=== PATIENT | female | born 1935 | race Caucasian/White ===

== ENCOUNTER → 2020-01-24 15:16 | Outpatient (BNVA) | payer MEDICARE, SELFPAY | PROVIDERS: PCP Internal Medicine; Referring Provider Internal Medicine; Visit Provider Internal Medicine Cardiovascular Disease | DX: I48.0 Paroxysmal atrial fibrillation (principal); I50.32 Chronic diastolic (congestive) heart failure; I71.2 Thoracic aortic aneurysm, without rupture; Z88.8 Allergy status to other drugs, medicaments and biological substances; Z79.899 Other long term (current) drug therapy | CPT/HCPCS: 99212 ==

== ENCOUNTER → 2020-05-06 14:49 | Outpatient (BNVA) | payer MEDICARE, SELFPAY | PROVIDERS: PCP Internal Medicine; Visit Provider Internal Medicine Gastroenterology | DX: Z76.89 Persons encountering health services in other specified circumstances (principal) | CPT/HCPCS: Q3014 ==

== ENCOUNTER → 2020-07-21 15:27 | Outpatient (BNVA) | payer MEDICARE, SELFPAY | PROVIDERS: PCP Internal Medicine; Visit Provider Internal Medicine Cardiovascular Disease | DX: I50.32 Chronic diastolic (congestive) heart failure (principal); I48.0 Paroxysmal atrial fibrillation; I10 Essential (primary) hypertension | CPT/HCPCS: 93005; 99212 ==

== ENCOUNTER 2020-07-24 05:38 | Emergency (ER) | payer MEDICARE, SELFPAY ==
--- NOTE | ~2020-07-24 | CT_ITS ---
EXAMINATION: NONCONTRAST HEAD CT NONCONTRAST CERVICAL SPINE CT INDICATION INFORMATION: Hit head. Fall. On Eliquis. COMPARISON: 11/06/2018 TECHNIQUE: Separate noncontrast CT examinations of the head and cervical spine were performed. Coronal and sagittal images were created for each examination at the technologist workstation. This CT examination was performed using dose optimization techniques as appropriate, variously including the following: *Automated exposure control *Adjustment of mA and/or kV according to patient size (this includes techniques or standardized protocols for targeted exams where dose is matched to indication/reason for exam; i.e. extremities or head) *Use of iterative reconstruction technique DLP: 992 mGy-cm FINDINGS: Head: There is no evidence of acute intracranial hemorrhage or territorial infarction. No abnormal mass effect or midline shift is seen. Prince to white matter differentiation is well preserved. No extra-axial fluid collections are identified. No hydrocephalus. Proportional prominence of the ventricles and sulcal spaces is consistent with mild volume loss. Patchy periventricular and deep white matter hypoattenuation is consistent with moderate small vessel ischemic changes. No acute osseous or soft tissue abnormality. Partial fusion of the right mastoid air cells. The left mastoid air cells and visualized portions of the paranasal sinuses are well aerated. Cervical spine: There is anatomic alignment of the vertebral bodies and posterior elements. The atlantoaxial and atlantooccipital articulations are intact. Vertebral body heights are maintained. There is multilevel intervertebral disc space narrowing with endplate osteophyte formation and facet arthropathy. No evidence of acute fracture. No prevertebral soft tissue swelling. Pleural calcification at the lung apices noted.. 2.1 cm hypoattenuating nodule in the right lobe of the thyroid gland. CT/CT cervical spine wo con IMPRESSION: 1. No acute intracranial finding. Chronic volume loss with small vessel ischemic change. 2. No acute fracture or malalignment of the cervical spine. Mild multilevel degenerative change. 3. 2.1 cm right thyroid lobe nodule. Consider nonemergent thyroid ultrasound follow-up.
[2020-07-24 05:45] VITALS: BP 181/79; PULSE 74; RESP 20; TEMP 36.4; O2SAT 95; BMI 25.6
[2020-07-24 05:59] VITALS: BP 148/71; PULSE 70
--- NOTE | 2020-07-24 06:05 | PC.NURSE ---
Lac to posterior head cleaned, minimal bleeding noted at this time. Pt and daughter aware of plan for CT.
--- NOTE | 2020-07-24 06:13 | PC.NURSE ---
Off to CT on hospital bed.
--- NOTE | 2020-07-24 06:18 | PC.NURSE ---
Pt sleeping throughout the night without difficulty. Pt wakes easily for AM meds, found to be incontinent of urine, provided with victoriano care and a complete bed change. VSS. Continue to monitor.
[2020-07-24 06:19] VITALS: BP 103/64; PULSE 91; RESP 16; O2SAT 95
--- NOTE | 2020-07-24 06:58 | ED_ITS ---
HPI - Fall General Chief Complaint: Fall Stated Complaint: FALL W/LAC Time Seen by Provider: 07/24/20 06:58 Source: patient Mode of arrival: ambulatory Limitations: no limitations History of Present Illness HPI Narrative: Patient is on eliquist, fell this morning hittting the back of her head, no LOC MD complaint: fall Onset (ago): hour(s) (2) Fall from: standing Fall witnessed: no Place fall occurred: home Loss of consciousness: none Prolonged down time: no Symptoms prior to fall: none Context: tripped/slipped Location of injury: head Severity: mild Related Data Home Medications Medication Instructions Recorded Confirmed apixaban 2.5 mg tablet 2.5 mg PO BID 01/24/20 07/30/20 atorvastatin 10 mg tablet 10 mg PO DAILY 01/24/20 07/30/20 ergocalciferol (vitamin D2) 1,250 1,250 mcg PO QWEEK 01/24/20 07/30/20 mcg (50,000 unit) capsule furosemide 20 mg tablet 20 mg PO DAILY 01/24/20 07/30/20 metoprolol succinate 50 mg 100 mg PO DAILY 01/24/20 07/30/20 tablet,extended release 24 hr sertraline 50 mg tablet 50 mg PO DAILY 01/24/20 07/30/20 zolpidem 10 mg tablet 10 mg PO BEDTIME 01/24/20 07/30/20 omeprazole 20 mg capsule,delayed 20 mg PO QAM 07/21/20 07/30/20 release potassium chloride 10 mEq 10 meq PO DAILY 07/21/20 07/30/20 capsule,extended release Previous Rx's Medication Instructions Recorded isosorbide mononitrate 30 mg 30 mg PO DAILY #90 tab 02/19/20 tablet,extended release 24 hr amlodipine 2.5 mg tablet 2.5 mg PO DAILY #30 tab 07/30/20 Allergies Allergy/AdvReac Type Severity Reaction Status Date / Time cefaclor [From CECLOR] Allergy Unknown UNKNOWN Verified 07/24/20 05:50 ciprofloxacin [CIPROFLOXACIN] Allergy Unknown UNKNOWN Verified 07/24/20 05:50 levofloxacin [From LEVAQUIN] Allergy Unknown UNKNOWN Verified 07/24/20 05:50 sulfamethoxazole Allergy Unknown UNKNOWN Verified 07/24/20 05:50 [From BACTRIM] trimethoprim [From BACTRIM] Allergy Unknown UNKNOWN Verified 07/24/20 05:50 Augmentin Allergy Unknown Unknown Uncoded 07/24/20 05:50 augmentin Allergy Unknown GI upset Uncoded 07/24/20 05:50 ceclor Allergy Unknown rash Uncoded 07/24/20 05:50 demerol Allergy Unknown GI upset Uncoded 07/24/20 05:50 levaquin Allergy Unknown rash Uncoded 07/24/20 05:50 From Augmentin AdvReac Unknown UPSET Uncoded 07/24/20 05:50 STOMACH From Demerol AdvReac Unknown UPSET Uncoded 07/24/20 05:50 STOMACH Review of Systems Constitutional: Constitutional: Reports no additional constitutional complaints Eyes: Eyes: Reports no additional eye complaints ENT: Denies dizziness Cardiovascular: Cardiovascular: Reports no additional cardiovascular complaints Respiratory: Respiratory: Reports as per HPI Gastrointestinal: Gastrointestinal: Reports no additional gastrointestinal complaints Genitourinary: Genitourinary: Reports no additional female genitourinary com plaints Musculoskeletal: Musculoskeletal: Reports no additional musculoskeletal complaints Integumentary/Breasts: Skin/Breast: Denies rash Neurologic: Reports system reviewed and no additional complaints, except as documented, Denies dizziness and Denies Sensory deficit (Neuro) Psychiatric: Psychiatric: Denies anxiety PMFSH Past Medical History Medical History Chronic diastolic heart failure Diarrhea History of cardioversion Hyperlipemia Hypertension PAF (paroxysmal atrial fibrillation) Tubular adenoma of colon Surgical History History of lumpectomy of right breast History of total left knee replacement Hx laparoscopic cholecystectomy Hx of colonoscopy with polypectomy Hx of thoracic aortic aneurysm repair Family History Family History Mother No problems noted. Father No problems noted. Social History Social History Household Members: Children Household Members Other:: daughter Alcohol intake: never Smoking Status: Former smoker Current occupational status: retired Physical Exam Vital Signs: Vital Signs: Last Vital Signs Temp 98.2 F 07/24/20 09:04 Pulse 74 07/24/20 10:07 Resp 18 07/24/20 10:07 BP 174/77 H 07/24/20 10:07 Pulse Ox 97 07/24/20 10:07 Body Mass Index 25.6 Const: Other: elderly female General: healthy appearing Nutritional Appearance: average body habitus Orientation/consciousness: oriented to person and patient oriented x3 Limitations: no limitations HENMT: Head: Yes normal to inspection Ears: external ears normal General nose exam: Normal external nose present Mouth: Normal oral and palatal mucosa present and oropharynx normal Throat: Yes posterior oropharynx normal Eyes: General: appearance normal, both eyes and all related structures Neck: Other: supple Neck: Yes normal visual inspection Chest: Chest palpation & inspection: normal inspection of the chest Resp: Auscultation: clear to auscultation bilaterally Cardio: Jugular venous distension: no JVD Rate: regular rate Rhythm: regular rhythm Heart sounds: S1 normal heart sound present and S2 normal heart sound present GI: Inspection: Yes normal to inspection Palpation (GI): Soft to palpation, nontender and No hepatosplenomegaly present Auscultation: normal bowel sounds : General: Yes no CVA tenderness Back/Spine/Pelvis: Back: no CVA tenderness Skin: Other: 6cm laceration to occiput area Neuro: General: oriented to person and patient oriented x3 Cranial nerves: Yes CN's II-XII intact bilaterally Motor exam (neuro): 5/5 motor strength present throughout Sensory Exam: No Sensory deficit (Neuro) Extrem: General: Yes normal to inspection Psych: Appearance: grossly normal Course Course Course Narrative: I have reviewed the chart Procedures Procedure Narrative Procedure Narrative: Patient cleaned and prepped. Ethyl chloride used for anesthesia, closed with 11 raheem MDM - Fall MDM Narrative Medical decision making narrative: head trauma with laceration Discharge Plan Discharge Clinical Impression: Laceration of head Patient Disposition: Home, Self-Care Instructions: Staple Care (ED) Additional Instructions: staple removal 10 days Prescriptions: No Action isosorbide mononitrate 30 mg tablet extended release 24 hr 30 mg PO DAILY Qty: 90 RF: 3 potassium chloride 10 mEq capsule, extended release 10 meq PO DAILY RF: 0 omeprazole 20 mg capsule,delayed release(DR/EC) 20 mg PO QAM RF: 0 atorvastatin 10 mg tablet 10 mg PO DAILY RF: 0 sertraline 50 mg tablet 50 mg PO DAILY RF: 0 zolpidem 10 mg tablet 10 mg PO BEDTIME RF: 0 ergocalciferol (vitamin D2) 1,250 mcg (50,000 unit) capsule 1,250 mcg PO QWEEK RF: 0 furosemide 20 mg tablet 20 mg PO DAILY RF: 0 Eliquis 2.5 mg tablet 2.5 mg PO BID RF: 0 metoprolol succinate 50 mg tablet extended release 24 hr 100 mg PO DAILY RF: 0 amlodipine 2.5 mg tablet 2.5 mg PO DAILY Qty: 30 RF: 3 Referrals: Dionicio Lentz MD [Primary Care Provider] - 10 days Interventions: ED Discharge Assessment Last Done: 07/24/20 10:31 Discharge Date/Time: 07/24/20 10:32
[2020-07-24 07:26] VITALS: BP 174/79; PULSE 71; RESP 16; O2SAT 94
[2020-07-24 09:04] VITALS: BP 168/75; PULSE 75; RESP 17; TEMP 36.8; O2SAT 95
[2020-07-24 10:07] VITALS: BP 174/77; PULSE 74; RESP 18; O2SAT 97
[2020-07-24] MEDS: Diphth,Pertus(ACell),Tet Adult 0.5 ML SYRINGE IM (10:22)
== END 2020-07-24 10:32 | disposition home or self-care (01) ==
PROVIDERS: Emergency Provider Emergency Medicine; PCP Internal Medicine
DX: S01.01XA Laceration without foreign body of scalp, initial encounter (principal); S09.90XA Unspecified injury of head, initial encounter; W01.10XA Fall on same level from slipping, tripping and stumbling with subsequent striking against unspecified object, initial encounter; I10 Essential (primary) hypertension; I48.0 Paroxysmal atrial fibrillation; Y93.9 Activity, unspecified; Y92.019 Unspecified place in single-family (private) house as the place of occurrence of the external cause; Y99.9 Unspecified external cause status; Z87.891 Personal history of nicotine dependence
CPT/HCPCS: 12001; 70450; 72125; 90471; 90715; 99284

== ENCOUNTER → 2020-07-30 13:51 | Outpatient (BNVA) | payer MEDICARE, SELFPAY | PROVIDERS: PCP Internal Medicine; Referring Provider Internal Medicine; Visit Provider Internal Medicine Cardiovascular Disease | DX: I50.32 Chronic diastolic (congestive) heart failure (principal); I10 Essential (primary) hypertension; I48.0 Paroxysmal atrial fibrillation | CPT/HCPCS: 99212 ==

== ENCOUNTER → 2020-08-18 15:07 | Outpatient (BNVA) | payer MEDICARE, SELFPAY | PROVIDERS: PCP Internal Medicine; Visit Provider Internal Medicine Cardiovascular Disease | DX: I11.0 Hypertensive heart disease with heart failure (principal); I50.32 Chronic diastolic (congestive) heart failure; I48.0 Paroxysmal atrial fibrillation | CPT/HCPCS: 99212 ==

== ENCOUNTER → 2020-10-15 10:58 | Outpatient (BNVA) | payer MEDICARE, SELFPAY | PROVIDERS: PCP Internal Medicine; Referring Provider Internal Medicine; Visit Provider Internal Medicine Cardiovascular Disease | DX: I10 Essential (primary) hypertension (principal); I50.32 Chronic diastolic (congestive) heart failure; I48.0 Paroxysmal atrial fibrillation; Z79.01 Long term (current) use of anticoagulants | CPT/HCPCS: 99212 ==

== ENCOUNTER → 2020-10-27 15:35 | Outpatient (BNVA) | payer MEDICARE, SELFPAY | PROVIDERS: PCP Internal Medicine; Referring Provider Internal Medicine; Visit Provider Internal Medicine Cardiovascular Disease ==

== ENCOUNTER 2020-10-28 09:36 | Outpatient (REF) | payer MEDICARE, SELFPAY ==
[2020-10-28 10:34] LABS: MANUAL DIFF FLAG NO
[2020-10-28 10:41] LABS: Basophils Absolute Auto 0.1 X10*3/uL (0.0-0.2); Basophils Percent Auto 1.1 % (0-2); Eosinophils Absolute Auto 0.1 X10*3/uL (0.0-0.4); Eosinophils Percent Auto 1.5 % (0-4); Hematocrit 40.6 % (37-47); Hemoglobin 13.3 g/dl (12.0-16.0); Imm Gran Abs Auto 0.03 X10*3/uL (0.00-0.03); Imm Gran Pct Auto 0.4 % (0.0-0.4); Lymphocytes Absolute Auto 2.1 X10*3/uL (1.2-4.9); Mean Corpuscular HGB Conc 32.8 g/dl (31.0-35.0); Mean Corpuscular Hemoglobin 31.4 pg (27.0-33.0); Mean Corpuscular Volume 95.8 fL (80-98); Mean Platelet Volume 9.8 fL (9.4-12.3); Monocytes Percent Auto 11.8 % (2-11); Neutrophils Percent Auto 60.2 % (45-73); Platelet Count 186 X10*3/uL (160-400); Red Blood Count 4.24 X10*6/uL (4.20-5.50); Red Cell Distribution Width 14.2 % (11.0-16.0); White Blood Count 8.3 X10*3/uL (4.8-10.8)
[2020-10-28 11:21] LABS: Anion Gap 16 (12-20); Blood Urea Nitrogen 32 mg/dL (9-16); Carbon Dioxide 23 mmol/L (22-29); Chloride 108 mmol/L (96-108); Cholesterol 244 mg/dL; Estimated Glomerular Filt Rate 30; Glucose Fasting 101 mg/dL (60-99); HDL Cholesterol 109 mg/dL; LDL Cholesterol Calculated 111 mg/dl; Potassium 3.7 mmol/L (3.3-5.1); Sodium 143 mmol/L (135-145); Triglycerides 123 mg/dL
[2020-10-29 12:25] LABS: Alanine Aminotransferase 14 U/L (0-31); Albumin Level 4.1 g/dL (3.5-5.0); Alkaline Phosphatase 96 U/L (39-117); Aspartate Amino Transferase 20 U/L (5-31); Bilirubin Direct 0.3 mg/dL (0.0-0.5); Bilirubin Total 0.9 mg/dL (0.0-1.0)
== END 2020-10-28 09:37 | disposition home or self-care (01) ==
LOC: HO.LAB 09:36
PROVIDERS: PCP Internal Medicine; Visit Provider Internal Medicine
DX: E78.00 Pure hypercholesterolemia, unspecified (principal); R53.83 Other fatigue
CPT/HCPCS: 36415; 80051; 80061; 80076; 82565; 82947; 84520; 85025

== ENCOUNTER → 2020-12-12 10:29 | Outpatient (REF) | payer MEDICARE, SELFPAY ==
--- NOTE | 2020-12-12 10:35 | CA_ITS ---
Transthoracic Echocardiogram Patient (Last, First, Middle): Jessica Ordonez R Gender: Female Date of : 1935 Age: 85 Procedure Date: 12/12/2020 Procedure Type: Transthoracic Echocardiogram Location: OP Height: 160.02 cm Weight: 64.86 kg BSA: 1.68 m2 Heart Rate: bpm BP: 115 / 76 mmHg Claim Investigator: MARIELA Referring MD: Dionicio Lentz MD Symptoms: PERSISTENT ATRIAL FIBRILLATION Conclusions: - Normal left ventricular size, thickness, and systolic function. - Diastolic function is indeterminate on the basis of available data. - Mildly increased right ventricular cavity size. There is mildly decreased right ventricular systolic function. - The left atrium is mildly dilated. The right atrium is moderately dilated. - There is moderate tricuspid valve regurgitation. Normal right atrial pressure. Mild pulmonary hypertension is present. Findings Left Ventricle Normal left ventricular size, thickness, and systolic function. The visually estimated ejection fraction is between 55-60%. There is no evidence of regional wall motion abnormalities. Diastolic function is indeterminate on the basis of available data. Right Ventricle Mildly increased right ventricular cavity size. There is mildly decreased right ventricular systolic function. Atria The left atrium is mildly dilated. The right atrium is moderately dilated. Aortic Valve There is a normal trileaflet aortic valve. There is mild thickening of the aortic valve. There is no aortic valve stenosis. There is no aortic valve regurgitation. Mitral Valve The mitral valve appears normal. There is mild mitral valve regurgitation. There is no mitral valve stenosis. Pulmonic Valve Normal pulmonic valve structure and function. There is no pulmonic valve regurgitation. Tricuspid Valve Normal tricuspid valve structure. There is moderate tricuspid valve regurgitation. Normal right atrial pressure. Mild pulmonary hypertension is present. Great Vessels All visible segments of the aorta are normal in size. The visualized portions of the pulmonary artery and branches are normal. Venous The inferior vena cava is normal in size and collapses greater than 50% with inspiration. Pericardium/Pleural There is no evidence of pericardial effusion. Prior Study Comparison Changes noted compared to prior study dated: 09/21/2019. RV is mildly dilated and has mildly reduced function. Moderate TR. Pulmonary pressure are lower than before. Measurements 2D Linear Measurements IVSd: 0.77 0.6-0.9/0.6-1.0 cm LVIDd: 4.40 3.9-5.3/4.2-5.9 cm LVIDd Index: 2.62 2.4-3.2/2.2-3.1 cm/m2 LVIDs: 2.70 2.0-3.6 cm LVPWd: 0.77 0.7-1.1 cm Ao Root: 2.80 2.1-3.5 cm LA Diam: 3.30 2.7-3.8/3.0-4.0 cm LAIDs Index: 1.96 1.5-2.3 cm/m2 LV Mass: 130.26 67-162/88-224 g LV Mass Index: 77.53 43-95/49-115 g/m2 LVOT Diam: 2.10 3.0+(-)1.3 cm 2D Systolic Function EF 4C: 61.00 >55% EF 2C: 58.80 >55% EF BiP: 61.50 >55% Mitral Valve MV Pk E: 0.89 MV Decel Time: 101.00 E'Medial: 7.24 E/E' Med: 12.30 PHT: 30.00 MVA PHT: 7.33 Decel [place]: 9.45 Aortic Valve AoV Pk Jorge: 1.42 AoV Mn Jorge: 1.02 AoV VTI: 0.27 AoV Pk Grad: 8.00 Aov Mn Grad: 5.00 LUANN Cont.VTI: 1.45 LVOT LVOT Pk Jorge: 0.64 LVOT Mn Jorge: 0.40 LVOT VTI: 0.11 LVOT Pk Grad: 2.00 LVOT Mn Grad: 1.00 LVOT Diam: 2.10 LVOT Area: 3.46 Diastolic Function MV Pk E: 0.89 E'Medial: 7.24 E/E' Med: 12.30 Right Ventricle TAPSE (mm): 1.79 Tricuspid Valve TR Pk Jorge: 3.00 TR Pk Grad: 36.00 RA Press: 3.00 RVSP: 40.00 Great Vessels Aorta Ao Root-2D: 2.80 2.0-3.7 cm Ao Asc: 3.40 2.1-3.4 cm Updated in Other Vendor System with Status of Final Daniel Beauchamp MD electronically signed on 12/14/2020 1:47:29 PM with status of Final
--- NOTE | 2020-12-12 10:35 | HM_ITS ---
Total monitoring time 3days and 4 hours. Underlying rhythm atrial fibrillation. Average ventricular rate 88/min; maximum heart rate 128/min; minimum rate 60/min. About 9% of the time, rate >100/min; no significant bradycardia. Rare PVCs. 0.98% burden. Mostly isolated beats, some couplets. No patient events. Overall, reasonable rate control. Slight tendency for tachycardia. MTDD
== END ==
LOC: HO.CARD 10:29
PROVIDERS: Visit Provider Internal Medicine
DX: I48.0 Paroxysmal atrial fibrillation (principal); I48.19 Other persistent atrial fibrillation
CPT/HCPCS: 93242; 93306

== ENCOUNTER → 2021-01-08 15:44 | Outpatient (BNVA) | payer MEDICARE, SELFPAY | PROVIDERS: PCP Internal Medicine; Visit Provider Internal Medicine Cardiovascular Disease | DX: I11.0 Hypertensive heart disease with heart failure (principal); I50.32 Chronic diastolic (congestive) heart failure; I48.0 Paroxysmal atrial fibrillation | CPT/HCPCS: 99212 ==

== ENCOUNTER → 2021-03-11 15:36 | Outpatient (BNVA) | payer MEDICARE, SELFPAY | PROVIDERS: PCP Internal Medicine; Referring Provider Internal Medicine; Visit Provider Internal Medicine Cardiovascular Disease | DX: I11.0 Hypertensive heart disease with heart failure (principal); I50.32 Chronic diastolic (congestive) heart failure; I48.0 Paroxysmal atrial fibrillation | CPT/HCPCS: 99212 ==

== ENCOUNTER → 2021-05-04 14:43 | Outpatient (REF) | payer MEDICARE, SELFPAY ==
--- NOTE | 2021-05-04 14:46 | CA_ITS ---
Transthoracic Echocardiogram Patient (Last, First, Middle): Jessica Ordonez R Gender: Female Date of : 1935 Age: 85 Procedure Date: 05/04/2021 Procedure Type: Transthoracic Echocardiogram Location: OP Height: 154.94 cm Weight: 63.5 kg BSA: 1.62 m2 Heart Rate: bpm BP: 120 / 70 mmHg Utilization Management Um Nurse: JAYSHREE Terrazas MD: Daniel Beauchamp MD Symptoms: I50.32 - Chronic diastolic (congestive) heart failure Study Quality: Good Conclusions: - Normal left ventricular size and systolic function. - Mildly increased right ventricular cavity size. There is mildly decreased right ventricular systolic function. - There is mild to moderate tricuspid valve regurgitation. Mildly elevated right atrial pressure. Moderate to severe pulmonary hypertension is present. Findings Left Ventricle Normal left ventricular size and systolic function. There is mildly increased left ventricular wall thickness. The visually estimated ejection fraction is between 55-60%. There is no evidence of regional wall motion abnormalities. Diastolic function is indeterminate on the basis of available data. Right Ventricle Mildly increased right ventricular cavity size. There is mildly decreased right ventricular systolic function. Atria The left atrium is mildly dilated. The right atrium is moderately dilated. Aortic Valve There is mild calcification of the aortic valve. There is no aortic valve stenosis. There is trace (trivial) aortic valve regurgitation. Mitral Valve The mitral valve appears normal. There is mild mitral valve regurgitation. There is no mitral valve stenosis. Pulmonic Valve Normal pulmonic valve structure and function. There is trace pulmonic valve regurgitation. Tricuspid Valve Normal tricuspid valve structure and function. There is mild to moderate tricuspid valve regurgitation. Mildly elevated right atrial pressure. Moderate to severe pulmonary hypertension is present. Great Vessels All visible segments of the aorta are normal in size. Venous The inferior vena cava is dilated and collapses greater than 50% with inspiration. Pericardium/Pleural There is no evidence of pericardial effusion. Prior Study Comparison Changes noted compared to prior study dated: 12/12/2020. Pulmonary pressures are higher. Measurements 2D Linear Measurements IVSd: 1.11 0.6-0.9/0.6-1.0 cm LVIDd: 4.24 3.9-5.3/4.2-5.9 cm LVIDd Index: 2.62 2.4-3.2/2.2-3.1 cm/m2 LVIDs: 2.82 2.0-3.6 cm LVPWd: 0.96 0.7-1.1 cm Ao Root: 3.00 2.1-3.5 cm LA Diam: 4.20 2.7-3.8/3.0-4.0 cm LAIDs Index: 2.59 1.5-2.3 cm/m2 LV Mass: 182.51 67-162/88-224 g LV Mass Index: 112.66 43-95/49-115 g/m2 LVOT Diam: 2.20 3.0+(-)1.3 cm 2D Systolic Function EF 4C: 59.10 >55% EF 2C: 55.50 >55% EF BiP: 56.80 >55% Aortic Valve AoV Pk Jorge: 1.87 AoV Mn Jorge: 1.31 AoV VTI: 0.38 AoV Pk Grad: 14.00 Aov Mn Grad: 8.00 LUANN Cont.VTI: 1.74 LVOT LVOT Pk Jorge: 0.76 LVOT Mn Jorge: 0.51 LVOT VTI: 0.17 LVOT Pk Grad: 2.00 LVOT Mn Grad: 1.00 LVOT Diam: 2.20 LVOT Area: 3.80 Right Ventricle TAPSE (mm): 17.00 TVS' Jorge: 11.00 Tricuspid Valve TR Pk Jorge: 3.49 TR Pk Grad: 49.00 RA Press: 8.00 RVSP: 57.00 Great Vessels Aorta Ao Root-2D: 3.00 2.0-3.7 cm Ao Asc: 3.60 2.1-3.4 cm Updated in Other Vendor System with Status of Final Daniel Beauchamp MD electronically signed on 05/06/2021 2:10:11 PM with status of Final
== END ==
LOC: HO.CARD 14:43
PROVIDERS: PCP Internal Medicine; Visit Provider Internal Medicine Cardiovascular Disease
DX: I50.32 Chronic diastolic (congestive) heart failure (principal)
CPT/HCPCS: 93306

== ENCOUNTER → 2021-06-15 15:04 | Outpatient (BNVA) | payer MEDICARE, SELFPAY | PROVIDERS: PCP Internal Medicine; Referring Provider Internal Medicine; Visit Provider Internal Medicine Cardiovascular Disease | DX: I48.0 Paroxysmal atrial fibrillation (principal); I50.32 Chronic diastolic (congestive) heart failure; I71.9 Aortic aneurysm of unspecified site, without rupture; I10 Essential (primary) hypertension; E78.5 Hyperlipidemia, unspecified; Z87.891 Personal history of nicotine dependence; Z98.890 Other specified postprocedural states; Z88.1 Allergy status to other antibiotic agents; Z88.0 Allergy status to penicillin; Z88.2 Allergy status to sulfonamides; Z79.899 Other long term (current) drug therapy | CPT/HCPCS: 93005; 99212 ==

== ENCOUNTER 2021-06-16 11:40 | Outpatient (REF) | payer MEDICARE, SELFPAY ==
[2021-06-16 12:40] LABS: Hematocrit 43.8 % (37.0-47.0); Hemoglobin 14.3 g/dl (12.0-16.0); Mean Corpuscular HGB Conc 32.6 g/dl (31.0-35.0); Mean Corpuscular Hemoglobin 31.1 pg (27.0-33.0); Mean Corpuscular Volume 95.2 fL (80.0-98.0); Platelet Count 207 X10*3/uL (160-400); Red Cell Distribution Width 12.6 % (11.0-16.0); White Blood Count 6.9 X10*3/uL (4.8-10.8)
[2021-06-16 13:15] LABS: Anion Gap 14 (12-20); Blood Urea Nitrogen 21 mg/dL (9-16); Calcium 9.5 mg/dL (8.4-10.2); Carbon Dioxide 28 mmol/L (22-29); Chloride 102 mmol/L (96-108); Estimated Glomerular Filt Rate 34; Glucose Random 91 mg/dL (60-115); Sodium 140 mmol/L (135-145)
[2021-06-16 14:17] LABS: Digoxin 0.6 ng/mL (0.8-2.0)
== END 2021-06-16 11:41 | disposition home or self-care (01) ==
LOC: HO.LAB 11:40
PROVIDERS: PCP Internal Medicine; Visit Provider Internal Medicine Cardiovascular Disease
DX: I48.0 Paroxysmal atrial fibrillation (principal); Z79.899 Other long term (current) drug therapy
CPT/HCPCS: 36415; 80048; 80162; 85027

== ENCOUNTER 2021-07-30 14:06 | Outpatient (REF) | payer MEDICARE, SELFPAY ==
--- NOTE | ~2021-07-30 | XR_ITS ---
EXAMINATION: XR FOOT, RIGHT CLINICAL INFORMATION: Trauma. Exposed bone. Question osteomyelitis. COMPARISON: None TECHNIQUE: AP, lateral, and oblique views of the right foot. FINDINGS: No fracture or dislocation. Alignment is maintained. No osseous erosion. The bones are osteopenic. Prominent heel spurs. The soft tissues appear unremarkable. XR/XR foot RT 2V IMPRESSION: Osteopenia. No fracture or malalignment. No osseous erosion.
== END 2021-07-30 14:07 | disposition home or self-care (01) ==
LOC: HO.HMGCX 14:06
PROVIDERS: PCP Internal Medicine; Visit Provider Internal Medicine
DX: M85.871 Other specified disorders of bone density and structure, right ankle and foot (principal)
CPT/HCPCS: 73620

== ENCOUNTER → 2021-10-08 10:14 | Outpatient (BNVA) | payer MEDICARE, SELFPAY | PROVIDERS: PCP Internal Medicine; Referring Provider Internal Medicine; Visit Provider Internal Medicine Cardiovascular Disease | DX: I48.0 Paroxysmal atrial fibrillation (principal); I11.0 Hypertensive heart disease with heart failure; I50.32 Chronic diastolic (congestive) heart failure | CPT/HCPCS: 99212 ==

== ENCOUNTER 2022-02-11 11:27 | Outpatient (REF) | payer MEDICARE, SELFPAY ==
[2022-02-11 13:53] LABS: Digoxin 0.6 ng/mL (0.8-2.0)
== END 2022-02-11 11:28 | disposition home or self-care (01) ==
LOC: HO.LAB 11:27
PROVIDERS: PCP Internal Medicine; Visit Provider Internal Medicine Cardiovascular Disease
DX: I48.20 Chronic atrial fibrillation, unspecified (principal); I11.0 Hypertensive heart disease with heart failure; I50.32 Chronic diastolic (congestive) heart failure; Z79.899 Other long term (current) drug therapy
CPT/HCPCS: 36415; 80162; 99212

== ENCOUNTER 2022-05-07 11:35 | Outpatient (REF) | payer MEDICARE, SELFPAY ==
[2022-05-07 13:16] LABS: Digoxin 0.7 ng/mL (0.8-2.0)
== END 2022-05-07 11:36 | disposition home or self-care (01) ==
LOC: HO.LAB 11:35
PROVIDERS: PCP Internal Medicine; Visit Provider Internal Medicine Cardiovascular Disease
DX: R19.7 Diarrhea, unspecified (principal); R63.0 Anorexia
CPT/HCPCS: 36415; 80162

== ENCOUNTER → 2022-07-08 15:24 | Outpatient (BNVA) | payer MEDICARE, SELFPAY | PROVIDERS: PCP Internal Medicine; Referring Provider Internal Medicine; Visit Provider Nurse Practitioner Family | DX: I48.20 Chronic atrial fibrillation, unspecified (principal); I50.32 Chronic diastolic (congestive) heart failure; I11.0 Hypertensive heart disease with heart failure; Z98.890 Other specified postprocedural states | CPT/HCPCS: 93005; 99212 ==

== ENCOUNTER 2022-07-22 14:20 | Outpatient (REF) | payer MEDICARE, SELFPAY ==
[2022-07-22 14:38] LABS: MANUAL DIFF FLAG NO
[2022-07-22 15:24] LABS: Basophils Absolute Auto 0.1 X10*3/uL (0.0-0.2); Basophils Percent Auto 0.9 % (0-2); Eosinophils Absolute Auto 0.1 X10*3/uL (0.0-0.4); Eosinophils Percent Auto 1.1 % (0-4); Hematocrit 45.2 % (37.0-47.0); Hemoglobin 14.9 g/dl (12.0-16.0); Imm Gran Abs Auto 0.03 X10*3/uL (0.00-0.03); Imm Gran Pct Auto 0.3 % (0.0-0.4); Lymphocytes Percent Auto 19.1 % (20-40); Mean Corpuscular Hemoglobin 30.7 pg (27.0-33.0); Mean Platelet Volume 10.5 fL (9.4-12.3); Monocytes Absolute Auto 0.8 X10*3/uL (0.1-1.2); Monocytes Percent Auto 7.5 % (2-11); Neutrophils Absolute Auto 7.6 x10*3/uL (2.0-8.3); Neutrophils Percent Auto 71.1 % (45-73); Platelet Count 213 X10*3/uL (160-400); Red Blood Count 4.86 X10*6/uL (4.20-5.50); Red Cell Distribution Width 12.4 % (11.0-16.0); White Blood Count 10.7 X10*3/uL (4.8-10.8)
[2022-07-22 15:53] LABS: Alanine Aminotransferase 10 U/L (0-31); Albumin Level 4.3 g/dL (3.5-5.0); Alkaline Phosphatase 121 U/L (39-117); Anion Gap 15 (12-20); Aspartate Amino Transferase 21 U/L (5-31); Bilirubin Total 1.2 mg/dL (0.0-1.0); Blood Urea Nitrogen 30 mg/dL (9-16); Calcium 9.2 mg/dL (8.4-10.2); Carbon Dioxide 26 mmol/L (22-29); Chloride 104 mmol/L (96-108); Cholesterol 222 mg/dL; Estimated Glomerular Filt Rate 29; Glucose Random 118 mg/dL (60-115); HDL Cholesterol 99 mg/dL; LDL Cholesterol Calculated 102 mg/dl; Potassium 3.7 mmol/L (3.3-5.1); Sodium 141 mmol/L (135-145); Total Protein 7.2 g/dL (6.5-8.0); Triglycerides 107 mg/dL
== END 2022-07-22 14:21 | disposition home or self-care (01) ==
LOC: HO.LAB 14:20
PROVIDERS: PCP Internal Medicine; Visit Provider Nurse Practitioner Family
DX: I48.20 Chronic atrial fibrillation, unspecified (principal); I50.32 Chronic diastolic (congestive) heart failure
CPT/HCPCS: 36415; 80053; 80061; 85025

== ENCOUNTER 2023-01-17 14:26 | Outpatient (AMB) | payer MEDICARE, SELFPAY ==
--- NOTE | 2023-01-17 14:29 | A.OFFVIS_ITS ---
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 Accompanied by: Daughter Allergies cefaclor [From CECLOR] Allergy (Unknown, Verified 01/17/23 14:32) UNKNOWN ciprofloxacin [CIPROFLOXACIN] Allergy (Unknown, Verified 01/17/23 14:32) UNKNOWN levofloxacin [From LEVAQUIN] Allergy (Unknown, Verified 01/17/23 14:32) UNKNOWN sulfamethoxazole [From BACTRIM] Allergy (Unknown, Verified 01/17/23 14:32) UNKNOWN trimethoprim [From BACTRIM] Allergy (Unknown, Verified 01/17/23 14:32) UNKNOWN Augmentin Allergy (Unknown, Uncoded 01/17/23 14:32) Unknown Medication List - Last Reconciled 01/17/23 by Daniel Beauchamp MD amlodipine 5 mg PO DAILY apixaban (Eliquis) 2.5 mg PO BID atorvastatin 10 mg PO DAILY digoxin 125 mcg PO 3XW ergocalciferol (vitamin D2) 1,250 mcg PO QWEEK furosemide ,, Tuesday 80mg daily, 40mg other days isosorbide mononitrate ER 60 mg PO DAILY 90 days metoprolol succinate ER 100 mg PO DAILY potassium chloride ER 10 mEq PO DAILY sertraline 50 mg PO DAILY zolpidem 10 mg PO BEDTIME HPI HPI Comments History of Present Illness Details Pleasant 87-year-old female here for follow-up. She has background diastolic heart failure and aortic aneurysm for which she underwent surgery in [place]. She also has atrial fibrillation and mild right ventricular dysfunction. On follow-up she is doing well. Denying any chest discomfort or shortness of breath. She is not eating much and has appetite. She was started sertraline by primary care physician and that improved her appetite somewhat but still does not feel like eating. Denying any cardiovascular symptoms otherwise. Taking medications regularly and clinically stable. 01/17/23: She returns for follow-up. C ontinues to have somewhat poor appetite but it appears she eats certain things better than other and eats what she likes to eat at this point. Weight has been stable compared to June 2022. No significant dyspnea or palpitations. No chest discomfort. Physically she has not been very active but is doing what she likes to do. [facility] Medical History Chronic diastolic heart failure Diarrhea History of cardioversion Hyperlipemia Hypertension PAF (paroxysmal atrial fibrillation) Toe amputee Tubular adenoma of colon Surgical History Hx of thoracic aortic aneurysm repair History of lumpectomy of right breast Hx of colonoscopy with polypectomy Hx laparoscopic cholecystectomy History of total left knee replacement Family History Mother No problems noted. Father No problems noted. Social History (Updated 01/17/23 @ 14:33 by Halle Burris) Household Members: Children Household Members Other:: daughter Alcohol intake: current Alcohol intake frequency: holidays/special occasions only Alcohol type: wine Patient Tobacco Use Status: Former Tobacco user Quit Date: 1999 Smoked: 30+ Current occupational status: retired Physical Exam Vital Signs: Last Vital Signs Pulse 73 01/17/23 14:31 BP 130/66 01/17/23 14:31 BMI result Body Mass Index 23.2 GENERAL APPEARANCE: in no acute distress. NECK/THYROID: no carotid bruit, no JVD. HEART: no murmurs, irregular rate and rhythm, S1, S2 normal. LUNGS: clear to auscultation bilaterally. ABDOMEN: normal, bowel sounds present, soft, nontender, nondistended. EXTREMITIES: No peripheral edema PERIPHERAL PULSES: equal. NEUROLOGIC: nonfocal, alert and oriented. PSYCH: mood/affect full range. Assessment & Plan Assessment & Plan (1) Chronic atrial fibrillation: Code(s): I48.20 - Chronic atrial fibrillation, unspecified (2) Essential hypertension: Code(s): I10 - Essential (primary) hypertension Plan [age] year female with diastolic heart failure, permanent atrial fibrillation and hypertension. Clinically stable. Not in heart failure. Blood pressure control is good. Heart rate well controlled in atrial fibrillation on digoxin 125 mcg 3 times a week and Toprol-XL. Continue same medications and see us back in 6 months. Thank you for allowing me to participate in the care of your patient. Please feel free to contact me if you have any questions. Coding Level of Care Code Est Pt Level 3 (06948) Diagnoses Chronic atrial fibrillation I48.20 Essential hypertension I10
[2023-01-17 14:31] VITALS: BP 130/66; PULSE 73; BMI 23.2
== END 2023-01-17 15:03 | disposition home or self-care (01) ==
PROVIDERS: PCP Internal Medicine; Visit Provider Internal Medicine Cardiovascular Disease
DX: I48.20 Chronic atrial fibrillation, unspecified (principal); I10 Essential (primary) hypertension
CPT/HCPCS: 99213

== ENCOUNTER → 2023-01-17 14:26 | Outpatient (BNVA) | payer MEDICARE, SELFPAY | PROVIDERS: PCP Internal Medicine; Visit Provider Internal Medicine Cardiovascular Disease | DX: I48.20 Chronic atrial fibrillation, unspecified (principal); I10 Essential (primary) hypertension | CPT/HCPCS: 99212 ==

== ENCOUNTER 2023-04-29 09:47 | Outpatient (REF) | payer MEDICARE, SELFPAY ==
[2023-04-29 10:20] LABS: MANUAL DIFF FLAG NO
[2023-04-29 10:46] LABS: Basophils Absolute Auto 0.1 X10*3/uL (0.0-0.2); Eosinophils Absolute Auto 0.2 X10*3/uL (0.0-0.4); Eosinophils Percent Auto 3.2 % (0-4); Hematocrit 41.9 % (37.0-47.0); Hemoglobin 13.9 g/dl (12.0-16.0); Imm Gran Abs Auto 0.02 X10*3/uL (0.00-0.03); Imm Gran Pct Auto 0.3 % (0.0-0.4); Lymphocytes Absolute Auto 1.9 X10*3/uL (1.2-4.9); Lymphocytes Percent Auto 30.4 % (20-40); Mean Corpuscular HGB Conc 33.2 g/dl (31.0-35.0); Mean Corpuscular Hemoglobin 31.7 pg (27.0-33.0); Mean Corpuscular Volume 95.7 fL (80.0-98.0); Mean Platelet Volume 10.1 fL (9.4-12.3); Monocytes Absolute Auto 0.7 X10*3/uL (0.1-1.2); Monocytes Percent Auto 11.4 % (2-11); Neutrophils Absolute Auto 3.3 x10*3/uL (2.0-8.3); Neutrophils Percent Auto 53.7 % (45-73); Platelet Count 214 X10*3/uL (160-400); Red Blood Count 4.38 X10*6/uL (4.20-5.50); Red Cell Distribution Width 12.7 % (11.0-16.0); White Blood Count 6.2 X10*3/uL (4.8-10.8)
[2023-04-29 11:27] LABS: Alanine Aminotransferase 16 U/L (0-31); Albumin Level 3.7 g/dL (3.5-5.0); Alkaline Phosphatase 126 U/L (39-117); Anion Gap 13 (12-20); Aspartate Amino Transferase 28 U/L (5-31); Bilirubin Direct 0.3 mg/dL (0.0-0.5); Bilirubin Total 0.5 mg/dL (0.0-1.0); Blood Urea Nitrogen 40 mg/dL (9-16); Carbon Dioxide 27 mmol/L (22-29); Chloride 105 mmol/L (96-108); Cholesterol 196 mg/dL (<200); Estimated Glomerular Filt Rate 34; Glucose Fasting 100 mg/dL (60-99); HDL Cholesterol 89 mg/dL (>40); LDL Cholesterol Calculated 89 mg/dL (<100); Potassium 3.6 mmol/L (3.3-5.1); Sodium 141 mmol/L (135-145); Total Protein 7.2 g/dL (6.5-8.0); Triglycerides 90 mg/dL (<150)
[2023-04-29 11:44] LABS: Free T4 (Free Thyroxine) 0.88 ng/dL (0.71-1.85); Thyroid Stimulating Hormone 2.99 uIU/mL (0.32-4.0)
== END 2023-04-29 09:48 | disposition home or self-care (01) ==
LOC: HO.LAB 09:47
PROVIDERS: PCP Internal Medicine; Visit Provider Internal Medicine
DX: Z00.00 Encounter for general adult medical examination without abnormal findings (principal); R53.83 Other fatigue; E78.5 Hyperlipidemia, unspecified
CPT/HCPCS: 36415; 80051; 80061; 80076; 82565; 82947; 84439; 84443; 84520; 85025

== ENCOUNTER 2023-07-25 14:27 | Outpatient (AMB) | payer MEDICARE, SELFPAY ==
[2023-07-25 14:30] VITALS: BP 130/62; PULSE 72; BMI 23.9
--- NOTE | 2023-07-25 14:30 | A.OFFVIS_ITS ---
Vital Signs 07/25/23 14:30 Height 5 ft 3 in Weight 134 lb 14.766 oz BMI 23.9 BP 130/62 Blood Pressure Location Lt brachial Position Sitting Pulse 72 Intake Visit Reasons: 6M follow up Director [employer] Required: No Accompanied by: Daughter Allergies cefaclor [From CECLOR] Allergy (Unknown, Verified 01/17/23 14:32) UNKNOWN ciprofloxacin [CIPROFLOXACIN] Allergy (Unknown, Verified 01/17/23 14:32) UNKNOWN levofloxacin [From LEVAQUIN] Allergy (Unknown, Verified 01/17/23 14:32) UNKNOWN sulfamethoxazole [From BACTRIM] Allergy (Unknown, Verified 01/17/23 14:32) UNKNOWN trimethoprim [From BACTRIM] Allergy (Unknown, Verified 01/17/23 14:32) UNKNOWN Augmentin Allergy (Unknown, Uncoded 01/17/23 14:32) Unknown Medication List - Last Reconciled 07/25/23 by Daniel Beauchamp MD amlodipine 5 mg PO DAILY apixaban (Eliquis) 2.5 mg PO BID atorvastatin 10 mg PO DAILY digoxin 125 mcg PO 3XW 90 days ergocalciferol (vitamin D2) 1,250 mcg PO QWEEK furosemide ,, Tuesday 80mg daily, 40mg other days isosorbide mononitrate ER 60 mg PO DAILY metoprolol succinate ER 100 mg PO DAILY potassium chloride ER 10 mEq PO DAILY sertraline 50 mg PO DAILY zolpidem 10 mg PO BEDTIME HPI Comments Details: Pleasant 88-year-old female here for follow-up. She has background diastolic heart failure and aortic aneurysm for which she underwent surgery in [place]. She also has atrial fibrillation and mild right ventricular dysfunction. On follow-up she is doing well. Denying any chest discomfort or shortness of breath. She is not eating much and has appetite. She was started sertraline by primary care physician and that improved her appetite somewhat but still does not feel like eating. Denying any cardiovascular symptoms otherwise. Taking medications regularly and clinically stable. 01/17/23: She returns for follow-up. Continues to have somewhat poor appetite but it appears she eats certain things better than other and eats what she likes to eat at this point. Weight has been stable compared to June 2022. No significant dyspnea or palpitations. No chest discomfort. Physically she has not been very active but is doing what she likes to do. 07/25/23: She returns for follow-up. She has been doing well. No chest pain or shortness of breath. Physically not very active as before. Occasional diarrhea and she is asking whether this is related to any of the medications. Explained to her that diarrhea is not related to medications. [facility] Medical History Chronic diastolic heart failure Diarrhea History of cardioversion Hyperlipemia Hypertension PAF (paroxysmal atrial fibrillation) Toe amputee Tubular adenoma of colon Surgical History Hx of thoracic aortic aneurysm repair History of lumpectomy of right breast Hx of colonoscopy with polypectomy Hx laparoscopic cholecystectomy History of total left knee replacement Family History Mother No problems noted. Father No problems noted. Social History Household Members: Children Household Members Other:: daughter Alcohol intake: current Alcohol intake frequency: holidays/special occasions only Alcohol type: wine Patient Tobacco Use Status: Former Tobacco user Quit Date: 1999 Years Smoked: 30+ Current occupational status: retired Review of Systems Const Denies chills, Denies fatigue, Denies fever(s), Denies frequent falls, Denies weakness, Denies weight gain and Denies weight loss ENT Denies dizziness Card Denies chest pain, Denies leg edema, Denies lightheadedness, Denies palpitations, Denies dyspnea and Denies dyspnea on exertion Resp Denies cough, Denies dyspnea and Denies dyspnea on exertion GI Denies hematochezia Musc Denies abnormal gait, Denies muscle weakness, Denies numbness, Denies radiating pain into limb and Denies tingling Neuro Denies abnormal gait, Denies dizziness, Denies frequent falls, Denies numbness, Denies tingling and Denies weakness Endo Denies fatigue and Denies palpitations Physical Exam Vital Signs: Last Vital Signs Pulse 72 07/25/23 14:30 BP 130/62 07/25/23 14:30 BMI result Body Mass Index 23.9 GENERAL APPEARANCE: in no acute distress. NECK/THYROID: no carotid bruit, no JVD. HEART: no murmurs, irregular rate and rhythm, S1, S2 normal. LUNGS: clear to auscultation bilaterally. ABDOMEN: normal, bowel sounds present, soft, nontender, nondistended. EXTREMITIES: No peripheral edema PERIPHERAL PULSES: equal. NEUROLOGIC: nonfocal, alert and oriented. PSYCH: mood/affect full range. Office Procedures EKG Details: Atrial fibrillation 72 beats per minute, normal axis, ST-T changes due to digitalis effect, QTC 413 milliseconds. [id number], Complete Assessment & Plan Assessment & Plan (1) Chronic diastolic heart failure: Code(s): I50.32 - Chronic diastolic (congestive) heart failure Category: Medical (2) Essential hypertension: Code(s): I10 - Essential (primary) hypertension Category: Medical (3) Chronic atrial fibrillation: Code(s): I48.20 - Chronic atrial fibrillation, unspecified Category: Medical Plan [age] year female with permanent atrial fibrillation and chronic diastolic heart failure. Clinically stable and euvolemic. Rate controlled with digoxin and metoprolol succinate. On anticoagulation with apixaban. She is doing well on follow-up. She will see us back in 4-6 months. Thank you for allowing me to participate in the care of your patient. Please feel free to contact me if you have any questions. Coding Level of Care Code Est Pt Level 4 (97287) Diagnoses Chronic diastolic heart failure I50.32 Essential hypertension I10 Chronic atrial fibrillation I48.20 CPT Codes EKG - CPT: 54566-[id number], Complete ([id number])
== END 2023-07-25 14:58 | disposition home or self-care (01) ==
PROVIDERS: PCP Internal Medicine; Visit Provider Internal Medicine Cardiovascular Disease
DX: I48.91 Unspecified atrial fibrillation (principal)
CPT/HCPCS: 93010; 99214

== ENCOUNTER → 2023-07-25 14:27 | Outpatient (BNVA) | payer MEDICARE, SELFPAY | PROVIDERS: PCP Internal Medicine; Visit Provider Internal Medicine Cardiovascular Disease | DX: I11.0 Hypertensive heart disease with heart failure (principal); I50.32 Chronic diastolic (congestive) heart failure; I48.20 Chronic atrial fibrillation, unspecified | CPT/HCPCS: 93005; 99212 ==

== ENCOUNTER 2023-09-07 16:34 | Emergency (ER) | payer MEDICARE, SELFPAY ==
--- NOTE | 2023-09-07 16:39 | ED.GENADULT ---
HPI - General Adult General Chief complaint: Allergic Reaction Stated complaint: allergic reaction to medication Related Data Home Medications ?Medication ?Instructions ?Recorded ?Confirmed apixaban 2.5 mg tablet (Eliquis) 2.5 mg PO BID 01/24/20 07/25/23 atorvastatin 10 mg tablet 10 mg PO DAILY 01/24/20 07/25/23 ergocalciferol (vitamin D2) 1,250 1,250 mcg PO QWEEK 01/24/20 07/25/23 mcg (50,000 unit) capsule metoprolol succinate 50 mg 100 mg PO DAILY 01/24/20 07/25/23 tablet,extended release 24 hr sertraline 50 mg tablet 50 mg PO DAILY 01/24/20 07/25/23 zolpidem 10 mg tablet 10 mg PO BEDTIME 01/24/20 07/25/23 potassium chloride 10 mEq 10 meq PO DAILY 07/21/20 07/25/23 capsule,extended release Previous Rx's ?Medication ?Instructions ?Recorded amlodipine 5 mg tablet 5 mg PO DAILY #90 tabs 12/13/22 digoxin 125 mcg (0.125 mg) tablet 125 mcg PO 3XW 90 days #39 tabs 03/10/23 isosorbide mononitrate 60 mg 60 mg PO DAILY #90 tabs 06/30/23 tablet,extended release 24 hr furosemide 20 mg tablet See Rx Instructions PO DAILY #135 08/26/23 tabs Allergies Allergy/AdvReac Type Severity Reaction Status Date / Time cefaclor [From CECLOR] Allergy Unknown UNKNOWN Verified 09/07/23 16:41 ciprofloxacin [CIPROFLOXACIN] Allergy Unknown UNKNOWN Verified 09/07/23 16:41 levofloxacin [From LEVAQUIN] Allergy Unknown UNKNOWN Verified 09/07/23 16:41 sulfamethoxazole Allergy Unknown UNKNOWN Verified 09/07/23 16:41 [From BACTRIM] trimethoprim [From BACTRIM] Allergy Unknown UNKNOWN Verified 09/07/23 16:41 Augmentin Allergy Unknown Unknown Uncoded 09/07/23 16:41 [facility] Past Medical History Medical History Chronic diastolic heart failure Diarrhea History of cardioversion Hyperlipemia Hypertension PAF (paroxysmal atrial fibrillation) Toe amputee Tubular adenoma of colon Surgical History Hx of thoracic aortic aneurysm repair History of lumpectomy of right breast Hx of colonoscopy with polypectomy Hx laparoscopic cholecystectomy History of total left knee replacement Family History Family History Mother No problems noted. Father No problems noted. Social History Social History Household Members: Children Household Members Other:: daughter Alcohol intake: current Alcohol intake frequency: holidays/special occasions only Alcohol type: wine Patient Tobacco Use Status: Former Tobacco user Years Smoked: 30+ Advance Directives: No Advance Directives Information Provided: No Current occupational status: retired Physical Exam ED Vital Signs: BMI result Body Mass Index 23.8 Course Course Course Narrative: This is a rapid medical exam performed by Eloy Rene NP: Additional HPI, ROS, PE not included below will be deferred to primary provider. Patient is an 88-year-old female presenting to the ED with daughter who reports that patient was recently started on levaquin for a UTI, took one dose and broke out in hives. PCP advised to stop the levaquin, started her of keflex. Daughter states today she noted the back of patient's pants were wet and she has large, fluid filled blisters. Unable to fully visualize in triage as patient has dressings over open areas, but significant erythema noted to posterior thighs. Today is last day for keflex. No difficulty breathing, no angioedema. Feels her urinary sxs are improving. Plan: labs, will need assessment in a room Medical Decision Making Lab Data 09/07/23 17:03 09/07/23 17:03 Labs: Lab Results 09/07/23 Range/Units 17:03 WBC 9.5 (4.8-10.8) X10*3/uL RBC 4.90 (4.20-5.50) X10*6/uL Hgb 15.8 (12.0-16.0) g/dl Hct 46.4 (37.0-47.0) % MCV 94.7 (80.0-98.0) fL MCH 32.2 (27.0-33.0) pg MCHC 34.1 (31.0-35.0) g/dl RDW 12.9 (11.0-16.0) % Plt Count 271 D (160-400) X10*3/uL MPV 9.7 (9.4-12.3) fL Immature Gran % (Auto) 0.5 H (0.0-0.4) % Neut % (Auto) 87.6 H (45-73) % Lymph % (Auto) 7.9 L (20-40) % [place] % (Auto) 3.7 (2-11) % Eos % (Auto) 0.0 (0-4) % Baso % (Auto) 0.3 (0-2) % Lymph # (Auto) 0.8 L (1.2-4.9) X10*3/uL [place] # (Auto) 0.4 (0.1-1.2) X10*3/uL Eos # (Auto) 0.0 (0.0-0.4) X10*3/uL Baso # (Auto) 0.0 (0.0-0.2) X10*3/uL Abs Immat Gran (auto) 0.05 H (0.00-0.03) X10*3/uL Absolute Neuts (auto) 8.4 H (2.0-8.3) x10*3/uL Absolute Nucleated RBC 0.000 (0.0-0.012) X10*3/uL Nucleated RBC % (auto) 0.0 (0.0-0.2) /100WBC Sodium 139 (135-145) mmol/L Potassium 3.1 L (3.3-5.1) mmol/L Chloride 101 (96-108) mmol/L Carbon Dioxide 26 (22-29) mmol/L Anion Gap 15 (12-20) BUN 55 H (9-16) mg/dL Creatinine 1.53 H (0.5-1.4) mg/dL Estim Creat Clear Calc 20.5 Estimated GFR 32 Random Glucose 129 H (60-115) mg/dL Lactic Acid 1.7 (0.5-2.0) mmol/L Calcium 9.5 (8.4-10.2) mg/dL Total Bilirubin 0.8 (0.0-1.0) mg/dL AST 16 (5-31) U/L ALT 14 (0-31) U/L Alkaline Phosphatase 114 (39-117) U/L Total Protein 8.3 H (6.5-8.0) g/dL Albumin 4.5 (3.5-5.0) g/dL Discharge Plan Discharge Clinical Impression: Diagnosis unknown Patient Disposition: Left W/O Completing Treatment Prescriptions: No Action amlodipine 5 mg tablet 5 mg PO DAILY Qty: 90 3RF digoxin 125 mcg (0.125 mg) tablet 125 mcg PO 3XW 90 Days Qty: 39 3RF isosorbide mononitrate 60 mg tablet extended release 24 hr 60 mg PO DAILY Qty: 90 3RF Rx Instructions: Appt w Dr. Beauchamp July 24 furosemide 20 mg tablet See Rx Instructions PO DAILY Qty: 135 3RF Rx Instructions: ,, Tuesday 80mg daily, 40mg other days potassium chloride 10 mEq capsule, extended release 10 meq PO DAILY atorvastatin 10 mg tablet 10 mg PO DAILY sertraline 50 mg tablet 50 mg PO DAILY zolpidem 10 mg tablet 10 mg PO BEDTIME ergocalciferol (vitamin D2) 1,250 mcg (50,000 unit) capsule 1,250 mcg PO QWEEK Eliquis 2.5 mg tablet 2.5 mg PO BID metoprolol succinate 50 mg tablet extended release 24 hr 100 mg PO DAILY Discharge Date/Time: 09/07/23 19:29
[2023-09-07 16:40] VITALS: BP 145/61; PULSE 83; RESP 16; TEMP 36.4; O2SAT 98; BMI 23.8
[2023-09-07 17:14] LABS: MANUAL DIFF FLAG NO
[2023-09-07 17:16] LABS: Basophils Percent Auto 0.3 % (0-2); Hematocrit 46.4 % (37.0-47.0); Hemoglobin 15.8 g/dl (12.0-16.0); Imm Gran Abs Auto 0.05 X10*3/uL (0.00-0.03); Imm Gran Pct Auto 0.5 % (0.0-0.4); Lymphocytes Absolute Auto 0.8 X10*3/uL (1.2-4.9); Lymphocytes Percent Auto 7.9 % (20-40); Mean Corpuscular HGB Conc 34.1 g/dl (31.0-35.0); Mean Corpuscular Hemoglobin 32.2 pg (27.0-33.0); Mean Corpuscular Volume 94.7 fL (80.0-98.0); Mean Platelet Volume 9.7 fL (9.4-12.3); Monocytes Absolute Auto 0.4 X10*3/uL (0.1-1.2); Monocytes Percent Auto 3.7 % (2-11); Neutrophils Absolute Auto 8.4 x10*3/uL (2.0-8.3); Neutrophils Percent Auto 87.6 % (45-73); Platelet Count 271 X10*3/uL (160-400); Red Cell Distribution Width 12.9 % (11.0-16.0); White Blood Count 9.5 X10*3/uL (4.8-10.8)
[2023-09-07 17:34] LABS: Lactic Acid 1.7 mmol/L (0.5-2.0)
[2023-09-07 17:38] LABS: Alanine Aminotransferase 14 U/L (0-31); Albumin Level 4.5 g/dL (3.5-5.0); Alkaline Phosphatase 114 U/L (39-117); Anion Gap 15 (12-20); Aspartate Amino Transferase 16 U/L (5-31); Bilirubin Total 0.8 mg/dL (0.0-1.0); Blood Urea Nitrogen 55 mg/dL (9-16); Calcium 9.5 mg/dL (8.4-10.2); Carbon Dioxide 26 mmol/L (22-29); Chloride 101 mmol/L (96-108); Creatinine Clr Calc Pharmacy 20.5; Estimated Glomerular Filt Rate 32; Glucose Random 129 mg/dL (60-115); Potassium 3.1 mmol/L (3.3-5.1); Sodium 139 mmol/L (135-145); Total Protein 8.3 g/dL (6.5-8.0)
== END 2023-09-07 19:29 | disposition left against medical advice (07) ==
LOC: HO.ED 19:24
PROVIDERS: Registered Nurse Emergency; Emergency Provider Emergency Medicine; PCP Internal Medicine
DX: L50.9 Urticaria, unspecified (principal)
CPT/HCPCS: 36415; 80053; 83605; 85025; 87040; 99281; 99283

== ENCOUNTER 2023-11-23 14:26 | Outpatient (AMB) | payer MEDICARE, SELFPAY ==
[2023-11-23 14:48] VITALS: BP 140/72; PULSE 84; BMI 24.0
--- NOTE | 2023-11-23 14:48 | MHC.OFFVIS ---
Vital Signs 11/23/23 14:48 Height 5 ft 2 in Weight 131 lb 6.328 oz BMI 24.0 BP 140/72 H Blood Pressure Location Lt brachial Position Sitting Pulse 84 Pulse Source Pulse Oximeter Intake Visit Reasons: 4 mth f/up Intake Note: 4 mth f/up Director [employer] Required: No Accompanied by: Son Allergies cefaclor [From CECLOR] Allergy (Unknown, Verified 09/07/23 16:41) UNKNOWN ciprofloxacin [CIPROFLOXACIN] Allergy (Unknown, Verified 09/07/23 16:41) UNKNOWN levofloxacin [From LEVAQUIN] Allergy (Unknown, Verified 09/07/23 16:41) UNKNOWN sulfamethoxazole [From BACTRIM] Allergy (Unknown, Verified 09/07/23 16:41) UNKNOWN trimethoprim [From BACTRIM] Allergy (Unknown, Verified 09/07/23 16:41) UNKNOWN Augmentin Allergy (Unknown, Uncoded 09/07/23 16:41) Unknown Medication List - Last Reconciled 11/23/23 by Daniel Beauchamp MD amlodipine 5 mg PO DAILY apixaban (Eliquis) 2.5 mg PO BID atorvastatin 10 mg PO DAILY digoxin 125 mcg PO 3XW 90 days ergocalciferol (vitamin D2) 1,250 mcg PO QWEEK furosemide ,, Tuesday 80mg daily, 40mg other days isosorbide mononitrate ER 60 mg PO DAILY metoprolol succinate ER 100 mg PO DAILY potassium chloride ER 10 mEq PO DAILY sertraline 50 mg PO DAILY zolpidem 10 mg PO BEDTIME HPI Comments Details: Pleasant 88-year-old female here for follow-up. She has background diastolic heart failure and aortic aneurysm for which she underwent surgery in [place]. She also has atrial fibrillation and mild right ventricular dysfunction. On follow-up she is doing well. Denying any chest discomfort or shortness of breath. She is not eating much and has appetite. She was started sertraline by primary care physician and that improved her appetite somewhat but still does not feel like eating. Denying any cardiovascular symptoms otherwise. Taking medications regularly and clinically stable. 01/17/23: She returns for follow-up. Continues to have somewhat poor appetite but it appears she eats certain things better than other and eats what she likes to eat at this point. Weight has been stable compared to June 2022. No significant dyspnea or palpitations. No chest discomfort. Physically she has not been very active but is doing what she likes to do. 07/25/23: She returns for follow-up. She has been doing well. No chest pain or shortness of breath. Physically not very active as before. Occasional diarrhea and she is asking whether this is related to any of the medications. Explained to her that diarrhea is not related to medications. 11/23/2023: She is here for follow-up. Denying any chest pain or shortness of breath. Clinically stable. No orthopnea PND. Mild peripheral edema. Blood pressure mildly elevated. [facility] Medical History Chronic diastolic heart failure Diarrhea History of cardioversion Hyperlipemia Hypertension PAF (paroxysmal atrial fibrillation) Toe amputee Tubular adenoma of colon Surgical History Hx of thoracic aortic aneurysm repair History of lumpectomy of right breast Hx of colonoscopy with polypectomy Hx laparoscopic cholecystectomy History of total left knee replacement Family History Mother No problems noted. Father No problems noted. Social History Household Members: Children Household Members Other:: daughter Alcohol intake: current Alcohol intake frequency: holidays/special occasions only Alcohol type: wine Patient Tobacco Use Status: Former Tobacco user Years Smoked: 30+ Current occupational status: retired Review of Systems Const Denies chills, Denies fatigue, Denies fever(s), Denies frequent falls, Denies weakness, Denies weight gain and Denies weight loss ENT Denies dizziness Card Denies chest pain, Denies leg edema, Denies lightheadedness, Denies palpitations, Denies dyspnea and Denies dyspnea on exertion Resp Denies cough, Denies dyspnea and Denies dyspnea on exertion GI Denies hematochezia Musc Denies abnormal gait, Denies muscle weakness, Denies numbness, Denies radiating pain into limb and Denies tingling Neuro Denies abnormal gait, Denies dizziness, Denies frequent falls, Denies numbness, Denies tingling and Denies weakness Endo Denies fatigue and Denies palpitations Physical Exam Vital Signs: Last Vital Signs Pulse 84 11/23/23 14:48 BP 140/72 H 11/23/23 14:48 BMI result Body Mass Index 24.0 GENERAL APPEARANCE: in no acute distress. NECK/THYROID: no carotid bruit, no JVD. HEART: no murmurs, irregular rate and rhythm, S1, S2 normal. LUNGS: clear to auscultation bilaterally. ABDOMEN: normal, bowel sounds present, soft, nontender, nondistended. EXTREMITIES: No peripheral edema PERIPHERAL PULSES: equal. NEUROLOGIC: nonfocal, alert and oriented. PSYCH: mood/affect full range. Assessment & Plan Assessment & Plan (1) Chronic diastolic heart failure: Code(s): I50.32 - Chronic diastolic (congestive) heart failure Category: Medical (2) Essential hypertension: Code(s): I10 - Essential (primary) hypertension Category: Medical (3) Chronic atrial fibrillation: Code(s): I48.20 - Chronic atrial fibrillation, unspecified Category: Medical Plan [age] year female with permanent atrial fibrillation and chronic diastolic heart failure. Clinically stable and euvolemic. Rate controlled with digoxin and metoprolol succinate. On anticoagulation with apixaban. She is doing well on follow-up. She will be traveling to [place] to attend her granddaughter's wedding. She will see us back in 4-6 months. Thank you for allowing me to participate in the care of your patient. Please feel free to contact me if you have any questions. Coding Level of Care Code Est Pt Level 4 (89387) Diagnoses Chronic diastolic heart failure I50.32 Essential hypertension I10 Chronic atrial fibrillation I48.20
== END 2023-11-23 15:37 | disposition home or self-care (01) ==
PROVIDERS: PCP Internal Medicine; Visit Provider Internal Medicine Cardiovascular Disease
DX: I50.32 Chronic diastolic (congestive) heart failure (principal); I10 Essential (primary) hypertension; I48.20 Chronic atrial fibrillation, unspecified
CPT/HCPCS: 99214

== ENCOUNTER → 2023-11-23 14:26 | Outpatient (BNVA) | payer MEDICARE, SELFPAY | PROVIDERS: PCP Internal Medicine; Visit Provider Internal Medicine Cardiovascular Disease | DX: I11.0 Hypertensive heart disease with heart failure (principal); I48.20 Chronic atrial fibrillation, unspecified; I50.32 Chronic diastolic (congestive) heart failure | CPT/HCPCS: 99212 ==

== ENCOUNTER 2024-02-01 13:49 | Outpatient (REF) | payer MEDICARE, SELFPAY ==
[2024-02-01 16:56] LABS: Urine Cytology See Pathology rpt
== END 2024-02-01 13:50 | disposition home or self-care (01) ==
LOC: HO.LNP 13:49
PROVIDERS: PCP Internal Medicine; Visit Provider Nurse Practitioner Family
DX: R31.29 Other microscopic hematuria (principal); N39.0 Urinary tract infection, site not specified
CPT/HCPCS: 51798; 81003; 88112; 99202

== ENCOUNTER 2024-02-01 13:49 | Outpatient (AMB) | payer MEDICARE, SELFPAY ==
--- NOTE | 2024-02-01 14:10 | A.OFFVIS_ITS ---
Intake Visit Reasons: recurrent UTI Intake Note: New Patient presents for initial visit for recurrent uti Urology Medications: none Blood Thinner: none PVR: 0ml's Forming Roll Operator Required: No Accompanied by: Unknown Allergies cefaclor [From CECLOR] Allergy (Unknown, Verified 02/01/24 14:51) UNKNOWN ciprofloxacin [CIPROFLOXACIN] Allergy (Unknown, Verified 02/01/24 14:51) UNKNOWN levofloxacin [From LEVAQUIN] Allergy (Unknown, Verified 02/01/24 14:51) UNKNOWN sulfamethoxazole [From BACTRIM] Allergy (Unknown, Verified 02/01/24 14:51) UNKNOWN trimethoprim [From BACTRIM] Allergy (Unknown, Verified 02/01/24 14:51) UNKNOWN Augmentin Allergy (Unknown, Uncoded 02/01/24 14:51) Unknown Medication List - Last Reconciled 02/01/24 by KEE Valladares- amlodipine 5 mg PO DAILY apixaban (Eliquis) 2.5 mg PO BID atorvastatin 10 mg PO DAILY digoxin 125 mcg PO 3XW 90 days ergocalciferol (vitamin D2) 1,250 mcg PO QWEEK furosemide ,, Tuesday 80mg daily, 40mg other days isosorbide mononitrate ER 60 mg PO DAILY metoprolol succinate ER 100 mg PO DAILY potassium chloride ER 10 mEq PO DAILY sertraline 50 mg PO DAILY zolpidem 10 mg PO BEDTIME HPI Comments Details: Jessica is a very pleasant 88-year-old female patient of who was accompanied by her daughter at today's office visit. She has a past medical history of toe amputee, hyperlipidemia, hypertension, atrial fibrillation with a history of a cardioversion in 2019, diarrhea, chronic diastolic heart failure, and paroxysmal atrial fibrillation. She presents to the office today as a new patient for recurrent urinary tract infections as well as microscopic hematuria. In discussion with the patient today she reports having followed up with her PCP twice for UTI like symptoms at which time she has been treated with antibiotic therapy however recommendations were made for urology referral given microscopic hematuria and recurrent urinary tract infections. In office urinalysis results reviewed with the patient today 3+ leukocytes negative nitrates 3+ microscopic hematuria. We discussed at length potential causes of recurrent urinary tract infections as well as microscopic hematuria. She does report a previous history of nicotine dependence however quit 40 years ago. She reports when she was smoking she smoked for approximately 15 years. We discussed at length further workup of recurrent urinary tract infections as well as microscopic hematuria. However, patient feels she does not wish to undergo any further workup with imaging or UTI prevention. We discussed risks and benefits of further intervention versus surveillance monitoring. We discussed p otential delay in treatment with no intervention. She currently denies urinary urgency, urinary frequency, incontinence, nocturia, hematuria, dysuria, foul smelling urine, changes to urinary stream, flank pain, fever, and or chills. She is happy with her current voiding parameters. [facility] Medical History Toe amputee Hyperlipemia Hypertension Tubular adenoma of colon History of cardioversion Diarrhea Chronic diastolic heart failure PAF (paroxysmal atrial fibrillation) Surgical History Hx of thoracic aortic aneurysm repair History of lumpectomy of right breast Hx of colonoscopy with polypectomy Hx laparoscopic cholecystectomy History of total left knee replacement Family History Mother No problems noted. Father No problems noted. Social History Household Members: Children Household Members Other:: daughter Alcohol intake: current Alcohol intake frequency: holidays/special occasions only Alcohol type: wine Patient Tobacco Use Status: Former Tobacco user Years Smoked: 30+ Current occupational status: retired Review of Systems Eyes Reports no additional complaints ENT Reports no additional complaints Card Reports as per HPI Resp Reports no additional complaints GI Reports as per HPI Reports as per HPI Musc Reports as per HPI Neuro Reports no additional complaints Psych Reports no additional complaints Endo Reports no additional complaints Joshua/Lymph Reports no additional complaints Aller/Immun Reports no additional complaints Physical Exam Const General: cooperative, healthy appearing, comfortable, no acute distress, well developed, alert and awake Orientation/consciousness: patient oriented x3 Limitations: ambulation with walker HEENT Head: Yes normal to inspection, Yes normocephalic and Yes atraumatic Ears: hearing grossly normal bilaterally Eyes General: appearance normal, both eyes and all related structures Neck Neck: Yes normal visual inspection and Yes trachea midline Chest Chest palpation & inspection: normal inspection of the chest Resp Effort & Inspection: normal respiratory effort and able to speak in complete sentences Cardio Rate: regular rate GI Inspection: Yes normal to inspection General: Yes no CVA tenderness Back/Spine/Pelvis Back: no CVA tenderness Skin General skin exam: no rashes or lesions noted Neuro General: patient oriented x3 Extrem General: Yes normal to inspection Psych Appearance: grossly normal and well kempt Mental Status: mental status grossly normal Speech and movement: Normal speech and movement present and Clear speech present Affect: normal affect Attitude: cooperative Thought process: Normal thought process present Thought content: Normal thought content present Insight: Fair insight present (Psych) Judgement: Fair judgement present (Psych) Office Procedures Post Void Residual Post Residual Void Post Void Residual (PVR): 0 [id number] Void Residual by ultrasound Results AMB Urinalysis, Automated UA Leukoctes 500 Maria E/uL Last Edit by Greenext on 02/01/24 14:45 UA Nitrite Last Edit by Greenext on 02/01/24 14:45 UA Urobilinogen 0.2 mg/dL Last Edit by Greenext on 02/01/24 14:45 UA Protein 15 mg/dL Last Edit by Greenext on 02/01/24 14:45 UA pH 6.0 Last Edit by Greenext on 02/01/24 14:45 UA Blood 200 Delio/uL Last Edit by Greenext on 02/01/24 14:45 UA Specific Winnie 1.010 Last Edit by Greenext on 02/01/24 14:45 UA Ketone Last Edit by Greenext on 02/01/24 14:45 UA Bilirubin 0 mg/dL Last Edit by Greenext on 02/01/24 14:45 UA Glucose 0 mg/dL Last Edit by Greenext on 02/01/24 14:45 Results Reviewed Results Reviewed: Laboratory Last Values Urine pH (Auto) 6.0 02/01/24 14:12 Specific Winnie (Auto) 1.010 02/01/24 14:12 Urine Protein (Auto) 15 mg/dL 02/01/24 14:12 Glucose (UA)(Auto) 0 mg/dL 02/01/24 14:12 Urine Blood (Auto) 200 Delio/uL 02/01/24 14:12 Urine Bilirubin (Auto) 0 mg/dL 02/01/24 14:12 Urine Urobilinogen (Auto) 0.2 mg/dL 02/01/24 14:12 Leukocyte Esterase (Auto) 500 Maria E/uL 02/01/24 14:12 Assessment & Plan Assessment & Plan (1) Microscopic hematuria: Code(s): R31.29 - Other microscopic hematuria Category: Medical (2) Recurrent urinary tract infection: Code(s): N39.0 - Urinary tract infection, site not specified Category: Medical Plan In office urinalysis results reviewed with the patient today; as noted above; will send for urine cytology. We discussed at length potential causes of recurrent urinary tract infections as well as microscopic hematuria. We discussed further workup to include CT urogram as well as in office cysto scopy however patient declines we did discussed potential delay in treatment. Patient does not currently wish to undergo further treatment options of recurrent urinary tract infections as well as microscopic hematuria. Discussed UTI prevention with D mannose supplement, vitamin-C, increasing fluid intake, behavioral therapy with timed voiding, perineal hygiene and postcoital voiding, and management of constipation with stool softeners and increased fiber intake. Patient currently denies any UTI like symptoms. She reports be happy with current voiding parameters We discussed follow-up in 3 months however patient does not feel this is necessary. Follow-up in 1 year with PVR; or sooner with any issues, concerns, and or questions. Orders: Orders AMB Post Void Residual by ultrasound Today Z13.9 - Encounter for screening, unspecified Urine Cytology Today R31.29 - Other microscopic hematuria AMB Urinalysis Automated Today Z13.9 - Encounter for screening, unspecified Patient Instructions: The patient had an opportunity to ask questions regarding the treatment plan. All questions were answered. Physical exam, labs, and imaging were discussed and reviewed in detail. As well as risks, benefits, and discussion of treatment choices. No major barriers to understanding were identified. The patient expressed understanding and agreement with the above treatment plan. The patient was made aware they should contact our office by phone for worsening of their current condition, the appearance of new symptoms, or with any questions or concerns. Compliance is encouraged with any medications and follow up testing that is ordered. It is a privilege to be allowed the opportunity to participate in? your urological care.? Again, if you have any questions or concerns If you have any questions or concerns please do not hesitate to contact me. The office is [phone]. This note is constructed using voice recognition software. While every effort has been made to ensure accuracy director of vocational training errors may have been included. Yours sincerely, TANVI Valladares Coding Level of Care Code New Pt Level 3 (14267) Diagnoses Microscopic hematuria R31.29 Recurrent urinary tract infection N39.0 CPT Codes Post Residual Void - PVR CPT Code: 74524-[id number] Void Residual by ultrasound ([id number])
== END 2024-02-01 14:53 | disposition home or self-care (01) ==
LOC: HO.HUSH 13:50
PROVIDERS: PCP Internal Medicine; Visit Provider Nurse Practitioner Family
DX: R31.29 Other microscopic hematuria (principal); N39.0 Urinary tract infection, site not specified; Z13.9 Encounter for screening, unspecified
CPT/HCPCS: 99203

== ENCOUNTER 2024-03-14 14:06 | Outpatient (AMB) | payer MEDICARE, SELFPAY ==
[2024-03-14 14:07] VITALS: BP 120/62; PULSE 63; BMI 23.4
--- NOTE | 2024-03-14 14:07 | A.OFFVIS_ITS ---
Vital Signs 03/14/24 14:07 Height 5 ft 2 in Weight 127 lb 13.89 oz BMI 23.4 BP 120/62 Blood Pressure Location Lt brachial Position Sitting Pulse 63 Pulse Source Pulse Oximeter Intake Visit Reasons: 4 mth f/up Intake Note: 4 mth f/up Geotechnical Operating Engineer Required: No Accompanied by: Daughter Allergies cefaclor [From CECLOR] Allergy (Unknown, Verified 02/01/24 14:51) UNKNOWN ciprofloxacin [CIPROFLOXACIN] Allergy (Unknown, Verified 02/01/24 14:51) UNKNOWN levofloxacin [From LEVAQUIN] Allergy (Unknown, Verified 02/01/24 14:51) UNKNOWN sulfamethoxazole [From BACTRIM] Allergy (Unknown, Verified 02/01/24 14:51) UNKNOWN trimethoprim [From BACTRIM] Allergy (Unknown, Verified 02/01/24 14:51) UNKNOWN Augmentin Allergy (Unknown, Uncoded 02/01/24 14:51) Unknown Medication List - Last Reconciled 03/14/24 by Daniel Beauchamp MD amlodipine 5 mg PO DAILY apixaban (Eliquis) 2.5 mg PO BID atorvastatin 10 mg PO DAILY digoxin 125 mcg PO 3XW 90 days ergocalciferol (vitamin D2) 1,250 mcg PO QWEEK furosemide ,, Tuesday 80mg daily, 40mg other days isosorbide mononitrate ER 60 mg PO DAILY metoprolol succinate ER 100 mg PO DAILY potassium chloride ER 10 mEq PO DAILY sertraline 50 mg PO DAILY zolpidem 10 mg PO BEDTIME HPI Comments Details: Pleasant 88-year-old female here for follow-up. She has background diastolic heart failure and aortic aneurysm for which she underwent surgery in [place]. She also has atrial fibrillation and mild right ventricular dysfunction. On follow-up she is doing well. Denying any chest discomfort or shortness of breath. She is not eating much and has appetite. She was started sertraline by primary care physician and that improved her appetite somewhat but still does not feel like eating. Denying any cardiovascular symptoms otherwise. Taking medications regularly and clinically stable. 01/17/23: She returns for follow-up. Continues to have somewhat poor appetite but it appears she eats certain things better than other and eats what she likes to eat at this point. Weight has been stable compared to June 2022. No significant dyspnea or palpitations. No chest discomfort. Physically she has not been very active but is doing what she likes to do. 07/25/23: She returns for follow-up. She has been doing well. No chest pain or shortness of breath. Physically not very active as before. Occasional diarrhea and she is asking whether this is related to any of the medications. Explained to her that diarrhea is not related to medications. 11/23/2023: She is here for follow-up. Denying any chest pain or shortness of breath. Clinically stable. No orthopnea PND. Mild peripheral edema. Blood pressure mildly elevated. 03/14/2024: She returns for follow-up. She is been doing well. No chest pain or shortness of breath. No palpitations. Very mild peripheral edema. [facility] Medical History (Reviewed 02/01/24 @ 14:52 by Carmen Sarah [facility]-) Toe amputee Hyperlipemia Hypertension Tubular adenoma of colon History of cardioversion Diarrhea Chronic diastolic heart failure PAF (paroxysmal atrial fibrillation) Surgical History Hx of thoracic aortic aneurysm repair History of lumpectomy of right breast Hx of colonoscopy with polypectomy Hx laparoscopic cholecystectomy History of total left knee replacement Family History Mother No problems noted. Father No problems noted. Social History Household Members: Children Household Members Other:: daughter Alcohol intake: current Alcohol intake frequency: holidays/special occasions only Alcohol type: wine Patient Tobacco Use Status: Former Tobacco user Years Smoked: 30+ Current occupational status: retired Review of Systems Const Denies chills, Denies fatigue, Denies fever(s), Denies frequent falls, Denies weakness, Denies weight gain and Denies weight loss ENT Denies dizziness Card Denies chest pain, Denies leg edema, Denies lightheadedness, Denies palpitations, Denies dyspnea and Denies dyspnea on exertion Resp Denies cough, Denies dyspnea and Denies dyspnea on exertion GI Denies hematochezia Musc Denies abnormal gait, Denies muscle weakness, Denies numbness, Denies radiating pain into limb and Denies tingling Neuro Denies abnormal gait, Denies dizziness, Denies frequent falls, Denies numbness, Denies tingling and Denies weakness Endo Denies fatigue and Denies palpitations Physical Exam Vital Signs: Last Vital Signs Pulse 63 03/14/24 14:07 BP 120/62 03/14/24 14:07 BMI result Body Mass Index 23.4 GENERAL APPEARANCE: in no acute distress. NECK/THYROID: no carotid bruit, no JVD. HEART: no murmurs, irregular rate and rhythm, S1, S2 normal. LUNGS: clear to auscultation bilaterally. ABDOMEN: normal, bowel sounds present, soft, nontender, nondistended. EXTREMITIES: No peripheral edema PERIPHERAL PULSES: equal. NEUROLOGIC: nonfocal, alert and oriented. PSYCH: mood/affect full range. Assessment & Plan Assessment & Plan (1) Chronic diastolic heart failure: Code(s): I50.32 - Chronic diastolic (congestive) heart failure Category: Medical (2) Essential hypertension: Code(s): I10 - Essential (primary) hypertension Category: Medical (3) Chronic atrial fibrillation: Code(s): I48.20 - Chronic atrial fibrillation, unspecified Category: Medical Plan 88-year-old female with permanent atrial fibrillation and chronic diastolic heart failure. Clinically stable and euvolemic. Rate controlled with digoxin and metoprolol succinate. On anticoagulation with apixaban. Blood pressure well controlled. She is doing well on follow-up. Follow-up 6 months. Thank you for allowing me to participate in the care of your patient. Please feel free to contact me if you have any questions. Coding Level of Care Code Est Pt Level 4 (63620) Diagnoses Chronic diastolic heart failure I50.32 Essential hypertension I10 Chronic atrial fibrillation I48.20
== END 2024-03-14 14:22 | disposition home or self-care (01) ==
PROVIDERS: PCP Internal Medicine; Visit Provider Internal Medicine Cardiovascular Disease
DX: I50.32 Chronic diastolic (congestive) heart failure (principal); I10 Essential (primary) hypertension; I48.20 Chronic atrial fibrillation, unspecified
CPT/HCPCS: 99214

== ENCOUNTER → 2024-03-14 14:06 | Outpatient (BNVA) | payer MEDICARE, SELFPAY | PROVIDERS: PCP Internal Medicine; Visit Provider Internal Medicine Cardiovascular Disease | DX: I11.0 Hypertensive heart disease with heart failure (principal); I50.32 Chronic diastolic (congestive) heart failure; I48.20 Chronic atrial fibrillation, unspecified | CPT/HCPCS: 99212 ==

== ENCOUNTER 2024-09-17 14:00 | Outpatient (AMB) | payer MEDICARE, SELFPAY ==
--- NOTE | 2024-09-17 14:08 | MHC.OFFVIS ---
Vital Signs 09/17/24 14:14 Height 5 ft 2 in Weight 126 lb 1.671 oz BMI 23.1 BP 120/62 Blood Pressure Location Lt brachial Position Sitting Pulse 93 Pulse Source Monitor Intake Visit Reasons: 6 mth f/up Intake Note: 6 mth f/up Conceptor Required: No Accompanied by: Self / Same As Patient Allergies cefaclor (From CECLOR) Allergy (Unknown, Verified 02/01/24 14:51) UNKNOWN ciprofloxacin (CIPROFLOXACIN) Allergy (Unknown, Verified 02/01/24 14:51) UNKNOWN levofloxacin (From LEVAQUIN) Allergy (Unknown, Verified 02/01/24 14:51) UNKNOWN sulfamethoxazole (From BACTRIM) Allergy (Unknown, Verified 02/01/24 14:51) UNKNOWN trimethoprim (From BACTRIM) Allergy (Unknown, Verified 02/01/24 14:51) UNKNOWN Augmentin Allergy (Unknown, Uncoded 02/01/24 14:51) Unknown Medication List - Last Reconciled 09/17/24 by Daniel Beauchamp MD amlodipine 5 mg PO DAILY apixaban (Eliquis) 2.5 mg PO BID atorvastatin 10 mg PO DAILY ergocalciferol (vitamin D2) 1,250 mcg PO QWEEK furosemide 40 mg PO DAILY isosorbide mononitrate ER 60 mg PO DAILY metoprolol succinate ER 100 mg PO DAILY potassium chloride ER 20 mEq PO DAILY sertraline 50 mg PO DAILY zolpidem 5 mg PO BEDTIME HPI Comments Details: Pleasant 89-year-old female here for follow-up. She has background diastolic heart failure and aortic aneurysm for which she underwent surgery in [place]. She also has atrial fibrillation and mild right ventricular dysfunction. On follow-up she is doing well. Denying any chest discomfort or shortness of breath. She is not eating much and has appetite. She was started sertraline by primary care physician and that improved her appetite somewhat but still does not feel like eating. Denying any cardiovascular symptoms otherwise. Taking medications regularly and clinically stable. 01/17/23: She returns for follow-up. Continues to have somewhat poor appetite but it appears she eats certain things better than other and eats what she likes to eat at this point. Weight has been stable compared to June 2022. No significant dyspnea or palpitations. No chest discomfort. Physically she has not been very active but is doing what she likes to do. 07/25/23: She returns for follow-up. She has been doing well. No chest pain or shortness of breath. Physically not very active as before. Occasional diarrhea and she is asking whether this is related to any of the medications. Explained to her that diarrhea is not related to medications. 11/23/2023: She is here for follow-up. Denying any chest pain or shortness of breath. Clinically stable. No orthopnea PND. Mild peripheral edema. Blood pressure mildly elevated. 03/14/2024: She returns for follow-up. She is been doing well. No chest pain or shortness of breath. No palpitations. Very mild peripheral edema. 09/17/2024: She is here for follow-up. She is denying any chest discomfort shortness of breath. Recent admission at [facility] when she presented with hypoxia and congestive heart failure. She said she was in [place] recently and did not take her Lasix as regularly as she was supposed to take. Based on paperwork she has pulmonary edema and also pleural effusion for which she had thoracentesis performed. Her Lasix dose was increased to 40 mg daily. Her digoxin was discontinued. She recently had blood workup where she was hypokalemic with potassium of 3.3. She has increase dietary potassium and has been eating banana every day. [facility] Medical History Toe amputee Hyperlipemia Hypertension Tubular adenoma of colon History of cardioversion Diarrhea Chronic diastolic heart failure PAF (paroxysmal atrial fibrillation) Surgical History Hx of thoracic aortic aneurysm repair History of lumpectomy of right breast Hx of colonoscopy with polypectomy Hx laparoscopic cholecystectomy History of total left knee replacement Family History Mother No problems noted. Father No problems noted. Social History Household Members: Children Household Members Other:: daughter Alcohol intake: current Alcohol intake frequency: holidays/special occasions only Alcohol type: wine Patient Tobacco Use Status: Former Tobacco user Years Smoked: 30+ Current occupational status: retired Review of Systems Const Denies chills, Denies fatigue, Denies fever(s), Denies frequent falls, Denies weakness, Denies weight gain and Denies weight loss ENT Denies dizziness Card Denies chest pain, Denies leg edema, Denies lightheadedness, Denies palpitations, Denies dyspnea and Denies dyspnea on exertion Resp Denies cough, Denies dyspnea and Denies dyspnea on exertion GI Denies hematochezia Musc Denies abnormal gait, Denies muscle weakness, Denies numbness, Denies radiating pain into limb and Denies tingling Neuro Denies abnormal gait, Denies dizziness, Denies frequent falls, Denies numbness, Denies tingling and Denies weakness Endo Denies fatigue and Denies palpitations Physical Exam Vital Signs: Last Vital Signs Pulse 93 09/17/24 14:14 BP 120/62 09/17/24 14:14 BMI result Body Mass Index 23.1 GENERAL APPEARANCE: in no acute distress. NECK/THYROID: no carotid bruit, mild JVD. HEART: no murmurs, irregular rate and rhythm, S1, S2 normal. LUNGS: clear to auscultation bilaterally. ABDOMEN: normal, bowel sounds present, soft, nontender, nondistended. EXTREMITIES: No peripheral edema PERIPHERAL PULSES: equal. NEUROLOGIC: nonfocal, alert and oriented. PSYCH: mood/affect full range. Office Procedures EKG Details: Atrial fibrillation 93 beats per minute, right axis deviation, nonspecific ST-T changes, QTC 465 milliseconds. [id number], Complete Assessment & Plan Assessment & Plan (1) Essential hypertension: Code(s): I10 - Essential (primary) hypertension Category: Medical (2) Chronic diastolic heart failure: Code(s): I50.32 - Chronic diastolic (congestive) heart failure Category: Medical (3) Chronic atrial fibrillation: Code(s): I48.20 - Chronic atrial fibrillation, unspecified Category: Medical Plan Pleasant 89 year female with chronic diastolic heart failure, permanent atrial fibrillation hypertension. Blood pressure is well controlled. Clinically she appears to be euvolemic. Can continue same dose of Lasix. She was on digoxin for rate control. She has been taken off the digoxin after recent admission. Heart rates are in 90s. She is saying since she stopped taking digoxin her appetite has improved. I think we can discontinue the digoxin for now. Also she is hypokalemic which will increase the risk of digitoxicity. Thank you for allowing me to participate in the care of your patient. Please feel free to contact me if you have any questions. Medications: Changed From furosemide ,, Tuesday 80mg daily, 40mg other days 135 tabs 3RF To furosemide 40 mg PO DAILY Coding Level of Care Code Est Pt Level 4 (46038) Complex EM visit Add On G2211 Diagnoses Essential hypertension I10 Chronic diastolic heart failure I50.32 Chronic atrial fibrillation I48.20 CPT Codes EKG - CPT: 36419-[id number], Complete ([id number])
[2024-09-17 14:14] VITALS: BP 120/62; PULSE 93; BMI 23.1
--- OUTSIDE RECORDS SUMMARY | 2024-09-17 15:35 | XMS_ITS | Encounter Summary ---
Author Organization [facility] Address [id number] [place] [id number] Care Team Providers Care Principal Cyber Engineer Name Role Phone Dionicio Lentz MD Primary Care Provider [phone] Encounter Details Date Type Department Care Team (Late st Contact Info) Description 08/29/2024 Lab Requisition [facility] - Main Lab [address] [facility] [place] [address] Javan Lagos MD [address] [place] [address] Paroxysmal atrial fibrillation (CMS/HCC V24, CMS/HCC V28) Social History Tobacco Use Types Packs/Day Years Used Date Smoking Tobacco: Former Smokeless Tobacco: Never Alcohol Use Standard Drinks/Week Comments Never 0 (1 standard drink = 0.6 oz pur e alcohol) Comments Unknown Sex and Gender Information Value Date Recorded Sex Assigned at Not on file Legal Sex Female 1:57 AM EST Gender Identity Not on file Sexual Orientation Not on file documented as of this encounter Plan of Treatment Not on file documented as of this encounter Procedures Procedure Name Priority Date/Time Associated Diagnosis Comments COMPLETE BLOOD COUNT Routine 08/29/2024 10:08 AM EDT Paroxysmal atrial fibrillation (CMS/HCC V24, CMS/HCC V28) COMPREHENSIVE METABOLIC PANEL Routine 08/29/2024 10:08 AM EDT Paroxysmal atrial fibrillation (CMS/HCC V24, CMS/HCC V28) documented in this encounter Results * (ABNORMAL) Comprehensive metabolic panel (08/29/2024 10:08 AM EDT) Sodium 135 133 - 145 mmol/L LAB CHEMISTRY METHOD 08/29/2024 1:40 PM [facility] Potassium 3.1(L) 3.5 - 5.5 mmol/L LAB CHEMISTRY METHOD 08/29/2024 1:40 PM [facility] Chloride 93(L) 96 - 110 mmol/L LAB CHEMISTRY METHOD 08/29/2024 1:40 PM [facility] CO2 39(H) 21 - 32 mmol/L LAB CHEMISTRY METHOD 08/29/2024 1:40 PM [facility] Anion Gap 3 3 - 11 LAB CHEMISTRY METHOD 08/29/2024 1:40 PM [facility] Glucose 134(H) 70 - 100 mg/dL LAB CHEMISTRY METHOD 08/29/2024 1:40 PM [facility] BUN 36(H) 5 - 25 mg/dL LAB CHEMISTRY METHOD 08/29/2024 1:40 PM [facility] Creatinine 1.61(H) 0.50 - 1.10 mg/dL LAB CHEMISTRY METHOD 08/29/2024 1:40 PM [facility] eGFR 31(L) >=60 mL/min/1. 73m2 LAB CHEMISTRY METHOD 08/29/2024 1:40 PM [facility] Comment:Calculation based on the Chronic Kidney Disease Epidemiology Collaboration (CKD-EPI) equation refit without adjustment for race. BUN/Creatinine Ratio 22.4 LAB CHEMISTRY METHOD 08/29/2024 1:40 PM [facility] Calcium 8.6 8.5 - 10.5 mg/dL LAB CHEMISTRY METHOD 08/29/2024 1:40 PM [facility] AST (SGOT) 19 10 - 42 unit/L LAB CHEMISTRY METHOD 08/29/2024 1:40 PM [facility] ALT (SGPT) 17 10 - 60 unit/L LAB CHEMISTRY METHOD 08/29/2024 1:40 PM [facility] Alkaline Phosphatase 86 42 - 121 unit/L LAB CHEMISTRY METHOD 08/29/2024 1:40 PM EDT [facility] Total Protein 5.8(L) 6.0 - 8.0 g/dL LAB CHEMISTRY METHOD 08/29/2024 1:40 PM EDT [facility] Albumin 3.2 3.2 - 5.0 g/dL LAB CHEMISTRY METHOD 08/29/2024 1:40 PM EDT [facility] Total Bilirubin 1.0 0.0 - 1.4 mg/dL LAB CHEMISTRY METHOD 08/29/2024 1:40 PM EDT [facility] Blood Venous blood specimen / Unknown Venipuncture / Unknown 08/29/2024 10:08 AM EDT 08/29/2024 12:47 PM EDT Javan Lagos MD LAB BLOOD ORDERABLES Final Resu lt [facility] [address] [place] [address], [place] [phone] * (ABNORMAL) Complete blood count (08/29/2024 10:08 AM EDT) WBC 5.0 4.8 - 10.8 K/mcL LAB HEMETOLOGY METHOD 08/29/2024 1:18 PM EDT [facility] RBC 4.50 3.80 - 4.80 M/mcL LAB HEMETOLOGY METHOD 08/29/2024 1:18 PM EDT [facility] Hemoglobin 14.4 11.5 - 16.0 g/dL LAB HEMETOLOGY METHOD 08/29/2024 1:18 PM EDT [facility] Hematocrit 45.0 35.0 - 47.0 % LAB HEMETOLOGY METHOD 08/29/2024 1:18 PM EDT [facility] MCV 100.9(H) 79.0 - 98.0 FL LAB HEMETOLOGY METHOD 08/29/2024 1:18 PM EDT [facility] MCH 32.3(H) 27.0 - 32.0 pcg LAB HEMETOLOGY METHOD 08/29/2024 1:18 PM EDT [facility] MCHC 32.0 32.0 - 37.0 g/dL LAB HEMETOLOGY METHOD 08/29/2024 1:18 PM EDT [facility] RDW 13.1 11.0 - 15.0 % LAB HEMETOLOGY METHOD 08/29/2024 1:18 PM EDT [facility] Platelets 180 130 - 400 K/mcL LAB HEMETOLOGY METHOD 08/29/2024 1:18 PM EDT [facility] MPV 10.5 7.0 - 11.0 FL LAB HEMETOLOGY METHOD 08/29/2024 1:18 PM EDT [facility] NRBC 0.0 <1.0 % LAB HEMETOLOGY METHOD 08/29/2024 1:18 PM EDT [facility] NRBC Absolute 0.00 <0.10 K/mcL LAB HEMETOLOGY METHOD 08/29/2024 1:18 PM EDT [facility] Blood Venous blood specimen / Unknown Venipuncture / Unknown 08/29/2024 10:08 AM EDT 08/29/2024 12:47 PM EDT us Javan Lagos MD LAB BLOOD ORDERABLES Final Resu lt [facility] [address] [place] [address], documented in this encounter Visit Diagnoses Diagnosis Paroxysmal atrial fibrillation (CMS/HCC V24, CMS/HCC V28) Atrial fibrillation documented in this encounter Care Teams Principal Cyber Engineer Relationship Specialty Start Date End Date Dionicio Lentz MD [address] [place] [address] PCP - General Internal Medicine 08/17/21 documented as of this encounter
== END 2024-09-17 14:46 | disposition home or self-care (01) ==
LOC: HO.HCS 14:01
PROVIDERS: PCP Internal Medicine; Visit Provider Internal Medicine Cardiovascular Disease
DX: I10 Essential (primary) hypertension (principal); I50.32 Chronic diastolic (congestive) heart failure; I48.20 Chronic atrial fibrillation, unspecified
CPT/HCPCS: 93010; 99214; G2211

== ENCOUNTER → 2024-09-17 14:00 | Outpatient (BNVA) | payer MEDICARE, SELFPAY | PROVIDERS: PCP Internal Medicine; Visit Provider Internal Medicine Cardiovascular Disease | DX: I11.0 Hypertensive heart disease with heart failure (principal); I50.32 Chronic diastolic (congestive) heart failure; I48.20 Chronic atrial fibrillation, unspecified; R94.31 Abnormal electrocardiogram [ECG] [EKG] | CPT/HCPCS: 93005; 99212 ==

== ENCOUNTER 2024-10-14 12:24 | Inpatient (IN) | payer MEDICARE, SELFPAY ==
[2024-10-14] VITALS (17 sets, daily range): BP systolic 88–119; BP diastolic 47–85; PULSE 74–96; RESP 12–23; TEMP 32.4–36.8; O2SAT 67–100; BMI 25.4
--- NOTE | ~2024-10-14 | XR_ITS ---
CLINICAL HISTORY: SOB Single view of the chest. COMPARISON: None provided. FINDINGS: Status post sternotomy. Cardiomegaly. Tortuous atherosclerotic ectatic thoracic aorta. Large right and small left pleural effusions with overlying consolidation. No pneumothorax. [id number] spondylosis. No acute fracture identified. IMPRESSION: 1. Large right and small left pleural effusions with overlying consolidation. 2. Cardiomegaly. This document has been electronically signed by: Cooper Sargent MD on 10/14/2024 14:03:32
--- NOTE | ~2024-10-14 | US_ITS ---
EXAMINATION: ULTRASOUND-GUIDED THORACENTESIS CLINICAL INFORMATION: Right pleural effusion. COMPARISON: CT chest 10/14/2024 TECHNIQUE: Explaining ultrasound-guided right thoracentesis procedure, benefits and risk, a written consent was obtained. Patient was placed and right decubitus view and preliminary ultrasound imaging was obtained. Posterior chest. A site was selected along the right infrascapular line approximately ninth interspace and marker placed on the skin. The marked site was cleaned and draped in usual sterile manner. 1% lidocaine injected at puncture site. Through a small skin incision a 4 [place] 7 inch [place] catheter was inserted from the skin into the pleural space. After observing fluid return, stylet was withdrawn and catheter connected to vacuum bottle via connecting cannula. After obtaining all fluid and observing no more fluid return, catheter was withdrawn and complete hemostasis achieved at puncture site. Simple Tegaderm dressing applied at puncture site. Patient tolerated procedure extremely well. Patient was monitored by IR nursing during exam.. FINDINGS: On preliminary ultrasound imaging there is moderate right pleural effusion. Approximately 950 mL of clear orange fluid was drained from the right pleural space. This fluid was sent to lab as per referring physician's orders. US/US thoracentesis IMPRESSION: Successful therapeutic and diagnostic ultrasound-guided right thoracentesis performed. Electronically signed by: Rick Patterson MD 10/16/2024 04:38 PM EDT
--- NOTE | ~2024-10-14 | XR_ITS ---
EXAMINATION: XR CHEST CLINICAL INFORMATION: Post right thoracentesis COMPARISON: X-ray from [address] from 2 days ago TECHNIQUE: Frontal view of the chest was obtained. FINDINGS: Surgical clips projecting over the right lower lung are in the right breast. There are surgical clips projecting at the root of the aorta. [id number] right pleural effusion has decreased in size since the prior examination and there is increased aeration of the right lung. Small left pleural effusion also appears decreased in size with improved aeration of the left lung. There is cardiomegaly. There are mediastinal wires. No pneumothorax is evident. XR/XR chest 1V IMPRESSION: Decreased moderate right pleural effusion with improved aeration of the right lung. Decreased small left pleural effusion with minimally improved aeration. Cardiomegaly. Electronically signed by: Isael Amor MD 10/16/2024 10:34 AM EDT
--- NOTE | ~2024-10-14 | CT_ITS ---
CLINICAL HISTORY: eval effusion CT chest without IV contrast. COMPARISON: XR chest dated 10/14/24 at 13:10 EDT FINDINGS: Right thyroid lobe nodule measuring 1.9 cm. No supraclavicular or axillary lymphadenopathy. Main pulmonary artery is enlarged measuring up 3.3 cm. Cardiomegaly. Aortic annular and valve calcifications. Coronary artery calcifications present within the LAD. Mitral annular calcifications. Normal esophagus. Multiple normal-sized mediastinal lymph nodes. Large right pleural effusion with overlying complete atelectatic collapse of the right lower lobe and portions of the right middle lobe. Small left pleural effusion with overlying atelectasis. Trachea and central airways are clear. No significant bronchial wall thickening. No bronchiectasis. Status post sternotomy. Flowing marginal osteophytes present throughout the thoracic spine. No acute fracture or suspicious bone lesion. IMPRESSION: 1. Large right pleural effusion with overlying atelectatic collapse of the right lower lobe and portions of the right middle lobe. 2. Small left pleural effusion with overlying atelectasis. 3. Cardiomegaly with coronary artery atherosclerosis. 4. Right thyroid lobe nodule measuring 1.9 cm. Recommend correlation with nonemergent thyroid ultrasound if not already performed. This document has been electronically signed by: Cooper Sargent MD on 10/14/2024 20:02:38
--- NOTE | 2024-10-14 12:32 | ED_ITS ---
HPI - General Adult General Chief complaint: Dyspnea Stated complaint: RESP DISTRESS,98% NRB PER EMS Time Seen by Provider: 10/14/24 12:29 Source: patient, family (patient's daughter + granddaughter) and EMS Mode of arrival: EMS Limitations: altered mental status History of Present Illness ED Provider: Gunjan Mallory PA-C HPI narrative: Patient is an 89 year old assigned female at with a history of recently diagnosed UTI, diastolic heart failure, paraoxysmal atrial fibrillation on Eliquis, and aortic aneurysm which was repaired in [place] presenting to the emergency department today with increased shortness of breath and lethargy / altered mental status. Patient's granddaughter states that the patient was recently admitted at [facility] for a CHF exacerbation + hypoxia in August of 2024. Today she was found to be lethargic and had a low SPO2 of 67%. Patient's family states that the patient was diagnosed with a UTI yesterday and had 1 dose of antibiotics and her lasix recently went up from 40mg daily to 80 mg. Patient's daughter and granddaughter confirmed the patient is DNR/DNI. Related Data Home Medications ?Medication ?Instructions ?Recorded ?Confirmed apixaban 2.5 mg tablet (Eliquis) 2.5 mg PO BID 0 10/14/24 atorvastatin 10 mg tablet 10 mg PO DAILY 01/24/2009/26 metoprolol succinate 50 mg 100 mg PO DAILY 01/24/20 tablet,extended release 24 hr sertraline 50 mg tablet 50 mg PO DAILY 01/24/2009/26 potassium chloride 10 mEq 20 meq PO DAILY 09/17/24 capsule,extended release zolpidem 10 mg tablet 5 mg PO BEDTIME 09/17/24 acetaminophen 325 mg tablet 650 mg PO Q4H PRN Fever Or Pain 10/14/24 10/14/24 cephalexin 500 mg capsule 500 mg PO BID 10/14/2410/14 cetirizine 10 mg tablet 10 mg PO DAILY 10/14/2409/26 cholecalciferol (vitamin D3) 25 25 mcg PO DAILY 10/14/24 mcg (1,000 unit) tablet furosemide 40 mg tablet 40 mg PO DAILY 10/14/2409/26 Previous Rx's ?Medication ?Instructions ?Recorded amlodipine 5 mg tablet 5 mg PO DAILY #90 tabs 02/21 isosorbide mononitrate 60 mg 60 mg PO DAILY #90 tabs 0 04/30/24 tablet,extended release 24 hr Allergies Allergy/AdvReac Type Severity Reaction Status Date / Time cefaclor (From CECLOR) Allergy Unknown UNKNOWN Verified 10/14/24 12:26 ciprofloxacin (CIPROFLOXACIN) Allergy Unknown UNKNOWN Verified 10/14/24 12:26 levofloxacin (From LEVAQUIN) Allergy Unknown UNKNOWN Verified 10/14/24 12:26 sulfamethoxazole (From Allergy Unknown UNKNOWN Verified 10/14/24 12:26 BACTRIM) trimethoprim (From BACTRIM) Allergy Unknown UNKNOWN Verified 10/14/24 12:26 Augmentin Allergy Unknown Unknown Uncoded 10/14/24 12:26 Review of Systems 2 Review of Systems: Yes Unobtainable due to mental status Constitutional: Constitutional: Reports as per HPI Eyes: Eyes: Reports as per HPI ENT: Reports as per HPI Cardiovascular: Cardiovascular: Reports as per HPI Respiratory: Respiratory: Reports as per HPI Gastrointestinal: Gastrointestinal: Reports as per HPI Genitourinary: Genitourinary: Reports as per HPI Musculoskeletal: Musculoskeletal: Reports as per HPI Integumentary/Breasts: Skin/Breast: Reports as per HPI Neurologic: Reports as per HPI Psychiatric: Psychiatric: Reports as per HPI Endocrine: Endocrine: Reports as per HPI Hematologic/Lymphatic: Hematologic/Lymphatic: Reports as per HPI Allergic/Immunologic: Allergic/Immunologic: Reports as per HPI [facility] Past Medical History Attestation statement: The following information was validated with the patient. (all information validated with the patient's daughter and granddaughter) Source: old records reviewed, obtained from family (patient's granddaughter and daughter provided all history and ROS) and nursing notes reviewed Medical History Toe amputee Hyperlipemia Hypertension Tubular adenoma of colon History of cardioversion Diarrhea Chronic diastolic heart failure PAF (paroxysmal atrial fibrillation) Surgical History Hx of thoracic aortic aneurysm repair History of lumpectomy of right breast Hx of colonoscopy with polypectomy Hx laparoscopic cholecystectomy History of total left knee replacement Family History Family History Mother No problems noted. Father No problems noted. Social History Social History Household Members: Children Household Members Other:: daughter Alcohol intake: current Alcohol intake frequency: holidays/special occasions only Alcohol type: wine Patient Tobacco Use Status: Former Tobacco user Years Smoked: 30+ Smoked in Last 30 Days: No Use of substances other than those prescribed or required for medical reasons: No Advance Directives: Yes Advance Directives Information Provided: No Advance Directives on File: No Do you have a plan to hurt others: No Plan Current occupational status: retired Physical Exam ED Vital Signs: Vital Signs - 24 hr 10/14/24 12:25 10/14/24 12:34 10/14/24 12:51 Temperature 92.3 F L 90.3 F L Pulse Rate 74 82 Respiratory Rate 12 12 Blood Pressure 119/76 106/79 116/85 Pulse Oximetry 98 94 Oxygen Delivery Method Nasal Cannula Nasal Cannula Oxygen Flow Rate 3 10/14/24 12:54 10/14/24 13:00 10/14/24 14:16 Temperature 91.2 F L 91.8 F L 93 F L Pulse Rate 90 84 78 Respiratory Rate 14 16 12 Blood Pressure 116/85 97/68 119/77 Pulse Oximetry 100 100 Oxygen Delivery Method Nasal Cannula Nasal Cannula Nasal Cannula Oxygen Flow Rate 3 3 2 10/14/24 14:29 10/14/24 15:19 10/14/24 15:40 Temperature 94.8 F L Pulse Rate 94 Respiratory Rate 20 14 17 Blood Pressure 105/66 Pulse Oximetry 95 Oxygen Delivery Method High Flow Nasal Cannula Oxygen Flow Rate 45 BMI result Body Mass Index 25.4 Const General: acute distress, ill appearing and lethargic Orientation/consciousness: lethargic [facility] Head: Yes normal to inspection and Yes atraumatic Ears: hearing grossly normal bilaterally and external ears normal General nose exam: Normal external nose present, no nasal discharge noted and no epistaxis Face and sinus: Yes normal facial exam, No abrasion and No laceration Mouth: Normal oral and palatal mucosa present, no drooling and no muffled voice Eyes General: appearance normal, both eyes and all related structures Periorbital: periorbital findings normal Eyelids: Yes eyelids normal Conjunctivae: conjunctivae normal Pupils: Equal, round and reactive pupils present EOM: EOMs intact bilaterally Neck Neck: Yes normal visual inspection, Yes full ROM and Yes no lymphadenopathy Resp Effort & Inspection: decreased respiratory effort, labored and respiratory distress Cardio Rate: regular rate Rhythm: abnormal rhythm irregularly irregular Neuro Cranial nerves: Yes Equal, round and reactive pupils present Extrem Other: bilateral lower extremity edema (3+) General: Yes capillary refill normal Medications Administered Generic Name Dose Route Start Last Admin Trade Name Freq PRN Reason Stop Dose Admin Albumin Human 100 mls @ 100 mls/hr 10/14/24 18:00 10/14/24 17:43 Kedbumin 25 % IV 10/15/24 00:59 100 mls/hr Q6H MEI Administration Discontinued Medications Generic Name Dose Route Start Last Admin Trade Name Freq PRN Reason Stop Dose Admin Ceftriaxone Sodium 2 gm 10/14/24 12:35 10/14/24 13:50 Ceftriaxone Sodium 2 Gm Vial IVPUSH 10/14/24 12:36 2 gm ONCE ONE Administration Furosemide 40 mg 10/14/24 12:35 10/14/24 12:51 Furosemide 40 Mg/4 Ml Vial IVPUSH 10/14/24 12:36 40 mg ONCE ONE Administration Protocol Lactated Ringer's 1,000 mls @ 200 mls/hr 10/14/24 13:00 10/14/24 15:18 Lr IV 10/14/24 17:59 Infused .Q5H MEI Infusion Albumin Human 50 mls @ 100 mls/hr 10/14/24 13:53 10/14/24 14:46 Kedbumin 25 % IV 10/14/24 14:22 Infused ONCE ONE Infusion Furosemide 200 mg/ Sodium 100 mls @ 2.5 mls/hr 10/14/24 15:00 10/14/24 16:53 Chloride IVCONT 0 mg/hr .Q24H MEI 0 mls/hr 5 MG/HR Infusion Sodium Chloride 500 mls @ 999 mls/hr 10/14/24 16:45 10/14/24 17:41 Ns IV 10/14/24 17:15 Infused .Q31M MEI Infusion Medical Decision Making Medical Decision Making MDM Narrative: Patient is an 89 year old assigned female at with a history of recently diagnosed UTI, diastolic heart failure, paraoxysmal atrial fibrillation on Eliquis, and aortic aneurysm which was repaired in [place] presenting to the emergency department today with increased shortness of breath and lethargy / altered mental status. Patient's physical exam showed a hypothermic (90.3 F) lethargic individual with an oxygen saturation of less than 80%, in active respiratory distress, normal heart rate but irregularly irregular rhythm, and bilateral lower leg swelling (3+ edema). Patient was immediately placed on nasal cannula which brought the saturation up to 95% and the patient was given an IV dose of 40mg of Lasix (normally on 80mg of Lasix PO but did not take any today). Patient's blood work showed a WBC count of 12.7, sodium of 126, potassium of 5.4, anion gap 21, BUN 32, CR 1.98, lactic acid 4.7, t bili of 1.4, AST 330, ALT 228, alk phos 193, trop 43.2, BNP 1704. Patient's urine showed active infection. Patient's EKG showed atrial fibrillation. Patient's chest x-ray showed a large right and small left pleural effusion with overlying consolidation and cardiomegaly. Patient's clinical presentation is most consistent with sepsis (@1235) secondary to UTI + possible PNA with a coexisting CHF exacerbation with hypoxia and a large right pleural effusion. Patient was given IV ceftriaxone (2 grams). Patient had some mild hypotension so I began 200ml/hr of LR and gave her a bolus dose of albumin. Patient's blood pressure improved. Patient was NOT given a 30ml/kg bolus because of her high risk for fluid overload and known heart failure status. Patient's oxygen saturation was maintained but her initial VBG showed pH 7.25, CO2 49, O2 68, HCO3 22. I had an extensive conversation with the patient's daughter (healthcare proxy) and granddaughter and together, we completed a MOLST form that confirmed the patient is DNR/DNI but open to artificial hydration and CPAP/BiPaP. Given the patient's initial VBG, we determined the patient would be placed on BiPaP briefly in an attempt to help reverse her mild acidosis. I spoke with the geology teacher, Dr. Lazo - who recommended transitioning the patient to high flow oxygen, starting a lasix 5mg/hr drip, stopping the LR 200ml/hr and admitting her to the telemetry floor. Patient was transitioned to high flow oxygen, LR stopped, and lasix drip started. Patient tolerated these changes well including a normal blood pressure and oxygen saturation. I spoke to Dr. Mtz, the hospitalist, who agreed to admission with plans for IR to perform a right sided thoracentesis in approximately 48 hours given her use of Eliquis. I explained my physical exam findings as well as all test results to the patient's daughter and granddaughter. I answered all questions asked by the patient's daughter and granddaughter. Patient's daughter and granddaughter verbalized agreement and understanding with this treatment plan and admission. Differential Diagnosis Differential Diagnoses: The differential diagnosis associated with the presentation includes Sepsis CHF exacerbation UTI Pneumonia Pleural effusion Deconditioning Hypotension Admission/Observation Consideration of admission/observation: Escalation of care including admission/observation considered Patient admitted as noted in the MDM Rationale portion of this note. Consult Healthcare Provider Management of the patient was discussed with: Hospitalist (agreed to admission as noted in the MDM Rationale portion of this note. ) and Patient Support Associate (spoke with the geology teacher as noted in the MDM Rationale portion of this note. ) Lab Data [facility] Lab Attestation statement: I reviewed the patient's lab results. My interpretation of these results are in the MDM Rationale portion of this note. 10/14/24 13:45 10/14/24 13:05 Labs: Lab Results 10/14/24 10/14/24 10/14/24 Range/Units 13:05 13:06 13:08 WBC (4.8-10.8) X10*3/uL RBC (4.20-5.50) X10*6/uL Hgb (12.0-16.0) g/dl Hct (37.0-47.0) % MCV (80.0-98.0) fL MCH (27.0-33.0) pg MCHC (31.0-35.0) g/dl RDW (11.0-16.0) % Plt Count (160-400) X10*3/uL MPV (9.4-12.3) fL Immature Gran % (Auto) (0.0-0.4) % Neut % (Auto) (45-73) % Lymph % (Auto) (20-40) % [place] % (Auto) (2-11) % Eos % (Auto) (0-4) % Baso % (Auto) (0-2) % Lymph # (Auto) (1.2-4.9) X10*3/uL [place] # (Auto) (0.1-1.2) X10*3/uL Eos # (Auto) (0.0-0.4) X10*3/uL Baso # (Auto) (0.0-0.2) X10*3/uL Abs Immat Gran (auto) (0.00-0.03) X10*3/uL Absolute Neuts (auto) (2.0-8.3) x10*3/uL Absolute Nucleated RBC (0.0-0.012) X10*3/uL Nucleated RBC % (auto) (0.0-0.2) /100WBC Smear Tech's Comments PT 18.1 H (10.9-12.4) SEC INR 1.6 H (0.9-1.1) VBG pH (7.32-7.43) VBG pCO2 mmHg VBG pO2 mmHg VBG HCO3 (22-26) mmol/L VBG O2 Saturation % VBG Base Excess mmol/L Sodium 126 L (135-145) mmol/L Potassium 5.4 H D (3.3-5.1) mmol/L Chloride 92 L (96-108) mmol/L Carbon Dioxide 18 L (22-29) mmol/L Anion Gap 21 H (12-20) BUN 32 H (9-16) mg/dL Creatinine 1.98 H (0.5-1.4) mg/dL Estim Creat Clear Calc 17.1 Estimated GFR 24 Random Glucose 122 H (60-115) mg/dL Lactic Acid 4.7 H* (0.5-2.0) mmol/L Lactic Acid F/U @ 2Hr (0.5-2.0) mmol/L Calcium 8.6 D (8.4-10.2) mg/dL Magnesium 2.2 (1.6-2.6) mg/dL Total Bilirubin 1.4 H (0.0-1.0) mg/dL AST 330 H (5-31) U/L ALT 228 H (0-31) U/L Alkaline Phosphatase 193 H (39-117) U/L Troponin I High Sens 43.2 H (<3.5-17.0) ng/L B-Natriuretic Peptide (<100) pg/mL Total Protein 7.9 (6.5-8.0) g/dL Albumin 4.4 (3.5-5.0) g/dL Urine Color Red A Urine Appearance Hazy Urine pH 5.0 (5.0-9.0) Ur Specific [place] 1.015 (1.005-1.025) Urine Protein 300 (3+) H (Neg-Trace) mg/dL Urine Glucose (UA) Negative (Negative) mg/dL Urine Ketones Negative (Negative) mg/dL Urine Blood Large (3+) H (Negative) Urine Nitrite Negative (Negative) Ur Leukocyte Esterase Moderate (2+) H (Negative) Urine RBC >20 H (0-2) /HPF Urine WBC 21-50 (0-5) /HPF Ur Squamous Epith Cells 3-5 (0-2) /HPF Urine Bacteria None Seen (None Seen) Hyaline Casts 0-2 (0-2) /LPF Influenza Type A (PCR) NEGATIVE (Negative) Influenza Type B (PCR) NEGATIVE (Negative) RSV RNA Qual (PCR) NEGATIVE (Negative) SARS-CoV-2 RNA (RT-PCR) NEGATIVE (Negative) 10/14/24 10/14/24 10/14/24 Range/Units 13:45 13:52 16:01 WBC 12.7 H (4.8-10.8) X10*3/uL RBC 4.44 (4.20-5.50) X10*6/uL Hgb 14.4 (12.0-16.0) g/dl Hct 43.9 (37.0-47.0) % MCV 98.9 H (80.0-98.0) fL MCH 32.4 (27.0-33.0) pg MCHC 32.8 (31.0-35.0) g/dl RDW 13.2 (11.0-16.0) % Plt Count 167 D (160-400) X10*3/uL MPV 9.7 (9.4-12.3) fL Immature Gran % (Auto) 0.3 (0.0-0.4) % Neut % (Auto) 83.5 H (45-73) % Lymph % (Auto) 2.5 L (20-40) % [place] % (Auto) 13.6 H (2-11) % Eos % (Auto) 0.0 (0-4) % Baso % (Auto) 0.1 (0-2) % Lymph # (Auto) 0.3 L (1.2-4.9) X10*3/uL [place] # (Auto) 1.7 H (0.1-1.2) X10*3/uL Eos # (Auto) 0.0 (0.0-0.4) X10*3/uL Baso # (Auto) 0.0 (0.0-0.2) X10*3/uL Abs Immat Gran (auto) 0.04 H (0.00-0.03) X10*3/uL Absolute Neuts (auto) 10.6 H (2.0-8.3) x10*3/uL Absolute Nucleated RBC 0.000 (0.0-0.012) X10*3/uL Nucleated RBC % (auto) 0.0 (0.0-0.2) /100WBC Smear Tech's Comments VERIFIED PT (10.9-12.4) SEC INR (0.9-1.1) VBG pH 7.25 L (7.32-7.43) VBG pCO2 49 mmHg VBG pO2 68 mmHg VBG HCO3 22 (22-26) mmol/L VBG O2 Saturation 94.0 % VBG Base Excess -5.3 mmol/L Sodium (135-145) mmol/L Potassium (3.3-5.1) mmol/L Chloride (96-108) mmol/L Carbon Dioxide (22-29) mmol/L Anion Gap (12-20) BUN (9-16) mg/dL Creatinine (0.5-1.4) mg/dL Estim Creat Clear Calc Estimated GFR Random Glucose (60-115) mg/dL Lactic Acid (0.5-2.0) mmol/L Lactic Acid F/U @ 2Hr 4.4 H* (0.5-2.0) mmol/L Calcium (8.4-10.2) mg/dL Magnesium (1.6-2.6) mg/dL Total Bilirubin (0.0-1.0) mg/dL AST (5-31) U/L ALT (0-31) U/L Alkaline Phosphatase (39-117) U/L Troponin I High Sens (<3.5-17.0) ng/L B-Natriuretic Peptide 1704 H (<100) pg/mL Total Protein (6.5-8.0) g/dL Albumin (3.5-5.0) g/dL Urine Color Urine Appearance Urine pH (5.0-9.0) Ur Specific [place] (1.005-1.025) Urine Protein (Neg-Trace) mg/dL Urine Glucose (UA) (Negative) mg/dL Urine Ketones (Negative) mg/dL Urine Blood (Negative) Urine Nitrite (Negative) Ur Leukocyte Esterase (Negative) Urine RBC (0-2) /HPF Urine WBC (0-5) /HPF Ur Squamous Epith Cells (0-2) /HPF Urine Bacteria (None Seen) Hyaline Casts (0-2) /LPF Influenza Type A (PCR) (Negative) Influenza Type B (PCR) (Negative) RSV RNA Qual (PCR) (Negative) SARS-CoV-2 RNA (RT-PCR) (Negative) Independent Interpretation I performed an independent interpretation of an: EKG and Plain X-Ray Interpretation: My interpretation is in agreement with the radiologist's impression of this imaging study. L CLINICAL HISTORY: SOB Single view of the chest. COMPARISON: None provided. FINDINGS: Status post sternotomy. Cardiomegaly. Tortuous atherosclerotic ectatic thoracic aorta. Large right and small left pleural effusions with overlying consolidation. No pneumothorax. [id number] spondylosis. No acute fracture identified. IMPRESSION: 1. Large right and small left pleural effusions with overlying consolidation. 2. Cardiomegaly. This document has been electronically signed by: Cooper Sargent MD on 10/14/2024 14:03:32 Dictated By: Cooper Sargent MD Signed By: Electronically signed by Cooper Sargent MD 10/14/24 1404 I independently interpreted this EKG and am in agreement with the below findings: Vent. Rate: 90 BPM Atrial Rate: * BPM P-R Int: * ms QRS Dur: 94 ms QT Int: 416 ms P-R-T Axes: * 106 -18 degrees QTcB Int: 508 ms Atrial fibrillation with premature ventricular or aberrantly conductedcomplexes Rightward axis Low voltage QRS Cannot rule out Anterior infarct, age undetermined When compared with ECG of 03-Oct-2019 10:49, Atrial fibrillation has replaced Sinus rhythm T wave inversion no longer evident in Lateral leads QT has lengthened DD/ 1307 Radiology Impression Discussion of test interpretation with radiology: I have reviewed the radiologist's reading. Independent Historian Clinical information obtained from an independent historian. History obtained from or confirmed by: EMS (EMS provided additional history and confirmed the history provided by the patient's granddaughter and daughter. ) and Other (patient's daughter and granddaughter provided all history and ROS) External Record Review External record reviewed: Office record Critical Care Time Critical Care Time Critical Care Time: Yes Total Critical Care Time: 76 Attestation: I spent 76 minutes of Critical Care Time with this patient. This does not include time spent on separately reported billable procedures. Discharge Plan Discharge Clinical Impression: Acute hyponatremia, Acute hyperkalemia, Hypoxia, Pleural effusion Sepsis Qualifiers: Sepsis type: sepsis due to unspecified organism Sepsis acute organ dysfunction status: with acute organ dysfunction Severe sepsis acute organ dysfunction type: acute respiratory failure Acute respiratory failure type: with hypoxia Severe sepsis shock status: unspecified Qualified Code(s): A41.9 - Sepsis, unspecified organism Urinary tract infection Qualifiers: Urinary tract infection type: site unspecified Hematuria presence: with hematuria Qualified Code(s): N39.0 - Urinary tract infection, site not specified CHF exacerbation Qualifiers: Heart failure type: diastolic Qualified Code(s): I50.33 - Acute on chronic diastolic (congestive) heart failure Patient Disposition: Admitted As Inpatient
--- NOTE | 2024-10-14 12:33 | ECG_ITS ---
Test Reason : SOB Blood Pressure : */* mmHG Vent. Rate : 90 BPM Atrial Rate : * BPM P-R Int : * ms QRS Dur : 94 ms QT Int : 416 ms P-R-T Axes : * 106 -18 degrees QTcB Int : 508 ms Atrial fibrillation with premature ventricular or aberrantly conducted complexes Rightward axis Low voltage QRS Abnormal ECG When compared with ECG of 03-Oct-2019 10:49, Atrial fibrillation has replaced Sinus rhythm T wave inversion no longer evident in Lateral leads QT has lengthened Referred By: Gunjan Mallory Electronically Signed By: Daniel Beauchamp
--- OUTSIDE RECORDS SUMMARY | 2024-10-14 12:50 | XMS_ITS | Clinical Summary ---
Author Organization [address] Address [address] [place] [address] Phone Care Team Providers Care Fire Engine Operator Name Role Phone Dionicio Lentz MD Primary Care Provider Encounters Date Type Department Care Team Description 09/05/2024 Lab Requisition [facility] [address] [place] [phone] Javan Lagos MD Heart failure, unspecified (CMS/HCC V24, CMS/HCC V28); Paroxysmal atrial fibrillation (CMS/HCC V24, CMS/HCC V28); Essential (primary) hypertension 08/31/2024 Lab Requisition [facility] [address] [place] [phone] Javan Lagos MD Heart failure, unspecified (CMS/HCC V24, CMS/HCC V28); Paroxysmal atrial fibrillation (CMS/HCC V24, CMS/HCC V28); Essential (primary) hypertension 08/29/2024 Lab Requisition [facility] [address] [place] [phone] Javan Lagos MD Heart failure, unspecified (CMS/HCC V24, CMS/HCC V28); Paroxysmal atrial fibrillation (CMS/HCC V24, CMS/HCC V28); Essential (primary) hypertension 08/29/2024 Lab Requisition [facility] [address] [place] [phone] Javan Lagos MD Paroxysmal atrial fibrillation (CMS/HCC V24, CMS/HCC V28) 08/27/2024 Lab Requisition [facility] [address] [facility] [place] [address] Javan Lagos MD Heart failure, unspecified (CMS/HCC V24, CMS/HCC V28); Paroxysmal atrial fibrillation (CMS/HCC V24, CMS/HCC V28) from Last 3 Months Social History Tobacco Use Types Packs/Day Years Used Date Smoking Tobacco: Former Smokeless Tobacco: Never Alcohol Use Standard Drinks/Week Comments Never 0 (1 standard drink = 0.6 oz pur e alcohol) Comments Unknown Sex and Gender Information Value Date Recorded Sex Assigned at Not on file Legal Sex Female 1:57 AM EST Gender Identity Not on file Sexual Orientation Not on file Obstetrics History Last Filed Vital Signs Vital Sign Reading Time Taken Comments Blood Pressure - - Pulse - - Temperature - - Respiratory Rate - - Oxygen Saturation - - Inhaled Oxygen Concentration - - Weight 61.7 kg (136 lb) 09/07/2021 2:19 PM EDT Height 157.5 cm (5' 2 ) 09/07/2021 2:19 PM EDT Body Mass Index 24.87 09/07/2021 2:19 PM EDT Plan of Treatment Health Maintenance Due Date Last Done Comments DTaP,Tdap,and Td Vaccines (1 - Tdap) 07/01/1954 Pneumococcal Vaccine: 50+ Years (1 of 2 - PCV) 07[birth year]01/1954 Zoster Vaccines (1 of 2) 1986 RSV Immunization Adult Patients (1 - 1-dose 75+ series) 07/01/2011 Falls Risk Assessment 02/28/2022 Medicare Annual Wellness Visit 02/28/2022 Osteoporosis Screening (Bone Density Screening) 02/28/2022 Social Influencers of Health Screening 02/28/2022 Cholesterol Screening (Lipid Panel) 06/14/2023 06/13/2018 COVID-19 Vaccine ( season) 2023 Depression Screening 03/28/2024 Influenza Vaccine (#1) 2024 Hypertension/CHF/CAD Annual BMP Blood Test 09/03/2025 09/03/2024, 08/30/2024, 08/29/2024, Additional history exists HIB Vaccines Aged Out No longer eligi ble based on patient's age to complete this topic HPV Vaccines Aged Out No longer eligi ble based on patient's age to complete this topic Hepatitis A Vaccines Aged Out No long er eligible based on patient's age to complete this topic Hepatitis B Vaccines Aged Out No long er eligible based on patient's age to complete this topic IPV Vaccines Aged Out No longer eligi ble based on patient's age to complete this topic MMR Vaccines Aged Out No longer eligi ble based on patient's age to complete this topic Meningococcal ACWY Vaccine Aged Out N o longer eligible based on patient's age to complete this topic Meningococcal B Vaccine Aged Out No l onger eligible based on patient's age to complete this topic RSV Immunization Patients Under 20 months Aged Out No longer eligible based on patient's age to complete this topic Varicella Vaccines Aged Out No longer eligible based on patient's age to complete this topic Procedures Procedure Name Priority Date/Time Associated Diagnosis Comments COMPREHENSIVE METABOLIC PANEL Routine 09/03/2024 6:09 AM EDT Heart failure, unspecified (CMS/HCC V24, CMS/HCC V28) Paroxysmal atrial fibrillation (CMS/HCC V24, CMS/HCC V28) Essential (primary) hypertension COMPLETE BLOOD COUNT Routine 09/03/2024 6:06 AM EDT Heart failure, unspecified (CMS/HCC V24, CMS/HCC V28) Paroxysmal atrial fibrillation (CMS/HCC V24, CMS/HCC V28) Essential (primary) hypertension BASIC METABOLIC PANEL Routine 08/30/2024 6:08 AM EDT Heart failure, unspecified (CMS/HCC V24, CMS/HCC V28) Paroxysmal atrial fibrillation (CMS/HCC V24, CMS/HCC V28) Essential (primary) hypertension COMPLETE BLOOD COUNT Routine 08/30/2024 6:08 AM EDT Heart failure, unspecified (CMS/HCC V24, CMS/HCC V28) Paroxysmal atrial fibrillation (CMS/HCC V24, CMS/HCC V28) Essential (primary) hypertension COMPREHENSIVE METABOLIC PANEL Routine 08/29/2024 10:08 AM EDT Paroxysmal atrial fibrillation (CMS/HCC V24, CMS/HCC V28) COMPLETE BLOOD COUNT Routine 08/29/2024 10:08 AM EDT Paroxysmal atrial fibrillation ([facility] V24, [facility] V28) from Last 3 Months Results * (ABNORMAL) Comprehensive metabolic panel (09/03/2024 6:09 AM EDT) Only the most recent of2 resultswithin the time period is included. Sodium 141 133 - 145 mmol/L LAB CHEMISTRY METHOD 09/03/2024 1:39 PM [facility] Potassium 5.5 3.5 - 5.5 mmol/L LAB CHEMISTRY METHOD 09/03/2024 1:39 PM [facility] Chloride 102 96 - 110 mmol/L LAB CHEMISTRY METHOD 09/03/2024 1:39 PM [facility] CO2 31 21 - 32 mmol/L LAB CHEMISTRY METHOD 09/03/2024 1:39 PM [facility] Anion Gap 8 3 - 11 LAB CHEMISTRY METHOD 09/03/2024 1:39 PM [facility] Glucose 65(L) 70 - 100 mg/dL LAB CHEMISTRY METHOD 09/03/2024 1:39 PM [facility] BUN 33(H) 5 - 25 mg/dL LAB CHEMISTRY METHOD 09/03/2024 1:39 PM [facility] Creatinine 1.92(H) 0.50 - 1.10 mg/dL LAB CHEMISTRY METHOD 09/03/2024 1:39 PM [facility] eGFR 25(L) >=60 mL/min/1. 73m2 LAB CHEMISTRY METHOD 09/03/2024 1:39 PM [facility] Comment:Calculation based on the Chronic Kidney Disease Epidemiology Collaboration (CKD-EPI) equation refit without adjustment for race. BUN/Creatinine Ratio 17.2 LAB CHEMISTRY METHOD 09/03/2024 1:39 PM [facility] Calcium 8.6 8.5 - 10.5 mg/dL LAB CHEMISTRY METHOD 09/03/2024 1:39 PM EDT [facility] AST (SGOT) 20 10 - 42 unit/L LAB CHEMISTRY METHOD 09/03/2024 1:39 PM EDT [facility] ALT (SGPT) 17 10 - 60 unit/L LAB CHEMISTRY METHOD 09/03/2024 1:39 PM EDT [facility] Alkaline Phosphatase 83 42 - 121 unit/L LAB CHEMISTRY METHOD 09/03/2024 1:39 PM EDT [facility] Total Protein 5.4(L) 6.0 - 8.0 g/dL LAB CHEMISTRY METHOD 09/03/2024 1:39 PM [facility] Albumin 2.8(L) 3.2 - 5.0 g/dL LAB CHEMISTRY METHOD 09/03/2024 1:39 PM [facility] Total Bilirubin 0.5 0.0 - 1.4 mg/dL LAB CHEMISTRY METHOD 09/03/2024 1:39 PM EDT [facility] Blood Venous blood specimen / Unknown Venipuncture / Unknown 09/03/2024 6:09 AM EDT 09/03/2024 12:01 PM EDT us Javan Lagos MD LAB BLOOD ORDERABLES Final Resu lt [facility] [address] [place] [address], * (ABNORMAL) Complete blood count (09/03/2024 6:06 AM EDT) Only the most recent of3 resultswithin the time period is included. WBC 5.3 4.8 - 10.8 [facility] LAB HEMETOLOGY METHOD 09/03/2024 2:39 PM EDT [facility] RBC 3.90 3.80 - 4.80 M/mcL LAB [facility] Hemoglobin 12.5 11.5 - 16.0 g/dL LAB HEMETOLOGY METHOD 09/03/2024 2:39 PM [facility] Hematocrit 41.5 35.0 - 47.0 % LAB HEMETOLOGY METHOD 09/03/2024 2:39 PM [facility] MCV 105.9(H) 79.0 - 98.0 FL LAB HEMETOLOGY METHOD 09/03/2024 2:39 PM [facility] MCH 31.9 27.0 - 32.0 pcg LAB HEMETOLOGY METHOD 09/03/2024 2:39 PM [facility] MCHC 30.1(L) 32.0 - 37.0 g/dL LAB HEMETOLOGY METHOD 09/03/2024 2:39 PM [facility] RDW 12.7 11.0 - 15.0 % LAB HEMETOLOGY METHOD 09/03/2024 2:39 PM [facility] Platelets 154 130 - 400 K/mcL LAB HEMETOLOGY METHOD 09/03/2024 2:39 PM [facility] MPV 11.3(H) 7.0 - 11.0 FL LAB HEMETOLOGY METHOD 09/03/2024 2:39 PM [facility] NRBC 0.0 <1.0 % LAB HEMETOLOGY METHOD 09/03/2024 2:39 PM [facility] NRBC Absolute 0.00 <0.10 K/mcL LAB HEMETOLOGY METHOD 09/03/2024 2:39 PM [facility] Blood Venous blood specimen / Unknown Venipuncture / Unknown 09/03/2024 6:06 AM EDT 09/03/2024 12:09 PM EDT us Javan Lagos MD LAB BLOOD ORDERABLES Final Resu lt [facility] [address] [place] [address], * (ABNORMAL) Basic metabolic panel (08/30/2024 6:08 AM EDT) Sodium 135 133 - 145 mmol/L LAB CHEMISTRY METHOD 08/30/2024 8:55 AM [facility] Potassium 3.3(L) 3.5 - 5.5 mmol/L LAB CHEMISTRY METHOD 08/30/2024 8:55 AM [facility] Chloride 95(L) 96 - 110 mmol/L LAB CHEMISTRY METHOD 08/30/2024 8:55 AM [facility] CO2 36(H) 21 - 32 mmol/L LAB CHEMISTRY METHOD 08/30/2024 8:55 AM [facility] Anion Gap 4 3 - 11 LAB CHEMISTRY METHOD 08/30/2024 8:55 AM [facility] Glucose 84 70 - 100 mg/dL LAB CHEMISTRY METHOD 08/30/2024 8:55 AM [facility] BUN 35(H) 5 - 25 mg/dL LAB CHEMISTRY METHOD 08/30/2024 8:55 AM [facility] Creatinine 1.62(H) 0.50 - 1.10 mg/dL LAB CHEMISTRY METHOD 08/30/2024 8:55 AM [facility] eGFR 30(L) >=60 mL/min/1. 73m2 LAB CHEMISTRY METHOD 08/30/2024 8:55 AM [facility] Comment:Calculation based on the Chronic Kidney Disease Epidemiology Collaboration (CKD-EPI) equation refit without adjustment for race. BUN/Creatinine Ratio 21.6 LAB CHEMISTRY METHOD 08/30/2024 8:55 AM [facility] Calcium 8.5 8.5 - 10.5 mg/dL LAB CHEMISTRY METHOD 08/30/2024 8:55 AM EDT [facility] Blood Venous blood specimen / Unknown Venipuncture / Unknown 08/30/2024 6:08 AM EDT 08/30/2024 7:31 AM EDT us Javan Lagos MD LAB BLOOD ORDERABLES Final Resu lt [facility] [address] [place] [address], [place] [phone] from Last 3 Months Insurance [facility]ICARE [facility] Advance Directives Documents on File Type Date Recorded Patient Hoist Operator Expl anation Health Care Decision (hx) 08/07/2021 JULIO CESAR BERNARD DIRECTIVE Care Teams Fire Engine Operator Relationship Specialty Start Date End Date Dionicio Lentz MD [address] [place] [address] PCP - General Internal Medicine 08/17/21
--- OUTSIDE RECORDS SUMMARY | 2024-10-14 12:50 | XMS_ITS | Patient Health Record ---
Author Organization [facility] Address [address] [place] [address] Care Team Providers Care Family Practice Medical Doctor Name Role Phone Dionicio Lentz MD Primary Care Provider UnavailLynette Lynn Unavailable [phone] Allergies Allergen (clinical drug ingredient) Drug/Non Drug Allergy documented on EMR Reaction Allergy Type Onset Date Status meperidine Demerol Unknown Drug Allergy Active Reason For Referral No Information Medications Medication SIG (Take, Route, Frequency, Duration) Notes Start Date End Date Status predniSONE 10 MG 1 tablet Orally Once a day; Duration: 30 day(s) Active ZyrTEC Allergy Activ e Metoprolol Succinate 100 MG 1 capsule Orally Once a day; Duration: 30 day(s) Active Amoxicillin For dental Apt Act fidel Norvasc 5 MG 1 tablet Orally Once a day; Duration: 30 day(s) Active Vitamin D Active Fluoxetine Active Klor-Con 20 MEQ 1 packet with food Orally Once a day; Duration: 30 day(s) Active Sertraline HCl 50 MG 1 tablet Orally Onc e a day; Duration: 30 day(s) Active Digoxin Active Ambien 10 MG 1 tablet at bedtime as needed Orally Once a day Active Isosorbide Mononitrate Active Omeprazole 20 MG 1 capsule 30 minutes before morning meal Orally Once a day; Duration: 30 day(s) Active Amiodarone HCl 200 MG 1 tablet Orally On ce a day; Duration: 30 day(s) Active Lasix 20 MG 1 tablet Orally Once a day; Duration: 30 day(s) Active Vicodin Active Atorvastatin Calcium 10 MG 1 tablet Orally Once a day; Duration: 30 day(s) Active Valtrex 1 GM 1 tablet Orally Once a day; Duration: 10 day(s) Active Keflex 500 MG 1 capsule Orally every 12 hrs; Duration: 10 day(s) Active Eliquis 2.5 MG as directed Orally Active Social History Tobacco Use: Social History Observation Description Date Details (start date - stop date) Former Smoker NA - NA Tobacco Use/Smoking Question Answer Notes Are you a: former smoker Additional Findings: Tobacco Non-User Current no n-smoker Alcohol Screen Question Answer Notes Did you have a drink containing alcohol in the p ast year? Yes Points 0 Interpretation Negative Tobacco use other than smoking: Question Answer Notes Are you an other tobacco user? 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 Plan Of Treatment No Information Insurance Providers Payer Name Payer Address Payer Phone Subscriber Number Group Number Insured Name Patient Relationship to Insured Coverage Start Date Coverage End Date Medicare National [employer] [address] [facility] [place] [address] [id number] Jessica Woodruff Self - patient is the insured [id number] [address] [place] [address] [id number] Kacy Jessica Self - patient is the insured Medical (General) History Medical History History ICD Code Insomnia Hypertension High cholesterol Right breast cancer A fib covid-19 DJD Hyponatremia Arthritis Back,Hip,and Knee pain Cancer Cataracts Depression Gall bladder problems Heart disease thyroid Vascular grafts Bone implants/screws Surgical History Surgery Date(Month/Year) left knee replacement right knee replacement gall bladder aortic arch repair- anerusym
--- OUTSIDE RECORDS SUMMARY | 2024-10-14 12:50 | XMS_ITS | Encounter Summary ---
Author Organization [facility] Address [address] [place] [phone] Phone Care Team Providers Care Associate Professor Of Pathology Name Role Phone Dionicio Lentz MD Primary Care Provider [phone] Daniel Beauchamp MD Unavailable [phone] Encounter Details Date Type Department Care Team (Late st Contact Info) Description 06/14/2018 Procedure Pass [facility] Periop [address] [place] [address] Social History Tobacco Use Types Packs/Day Years Used Date Smoking Tobacco: Former Cigarettes 1.5 45 1 958 - 2003 Smokeless Tobacco: Never Alcohol Use Standard Drinks/Week Comments Yes 1 (1 standard drink = 0.6 oz pure alcohol) 1 glass of wine nightly; 2 drinks on Wednesdays when she goes out with her friends Comments Unknown Sex and Gender Information Value Date Recorded Sex Assigned at Not on file Legal Sex Female 8:10 AM EDT Gender Identity Not on file Sexual Orientation Not on file documented as of this encounter Plan of Treatment Not on file documented as of this encounter Visit Diagnoses Not on filedocumented in this encounter Additional Health Concerns Assessment Noted Time PHQ-2 Depression Total Score: 0 06/09/19 19 2:05 PM EDT documented as of this encounter Care Teams Associate Professor Of Pathology Relationship Specialty Start Date End Date Dionicio Lentz MD [address] [place] [address] PCP - General Internal Medicine 06/06/18 Daniel Beauchamp MD [address] [facility] [place] [address] Agriculture Inspector Hospitalist 06/07/18 documented as of this encounter Additional Source Comments The information contained in this document represents components of the legal health record. It is not the complete legal health record.[facility]
[2024-10-14] MEDS: Lactated Ringers 1,000 ML 200 ML IV (12:51)
[2024-10-14] MEDS: Furosemide 40 MG/4 ML VIAL IVPUSH (12:51)
[2024-10-14 13:34] LABS: Alanine Aminotransferase 228 U/L (0-31); Albumin Level 4.4 g/dL (3.5-5.0); Alkaline Phosphatase 193 U/L (39-117); Anion Gap 21 (12-20); Aspartate Amino Transferase 330 U/L (5-31); Blood Urea Nitrogen 32 mg/dL (9-16); Calcium 8.6 mg/dL (8.4-10.2); Carbon Dioxide 18 mmol/L (22-29); Chloride 92 mmol/L (96-108); Creatinine Clr Calc Pharmacy 17.1; Estimated Glomerular Filt Rate 24; Magnesium 2.2 mg/dL (1.6-2.6); Potassium 5.4 mmol/L (3.3-5.1); Sodium 126 mmol/L (135-145); Total Protein 7.9 g/dL (6.5-8.0)
[2024-10-14 13:36] LABS: Appearance Urine Hazy; Glucose Urine UA Negative (Negative); PH 5.0 (5.0-9.0); Specific Gravity - Urine 1.015 (1.005-1.025); UMIC TRIGGER UACC YES
[2024-10-14 13:37] LABS: Troponin-I High Sensitivity 43.2 ng/L (<3.5-17.0); UACC Culture Trigger YES
[2024-10-14 13:38] LABS: INTERNATIONAL NORM RATIO 1.6 (0.9-1.1); Prothrombin Time 18.1 SEC (10.9-12.4)
[2024-10-14 13:54] LABS: Hematocrit 43.9 % (37.0-47.0); Hemoglobin 14.4 g/dl (12.0-16.0); Imm Gran Abs Auto 0.04 X10*3/uL (0.00-0.03); Imm Gran Pct Auto 0.3 % (0.0-0.4); Lymphocytes Absolute Auto 0.3 X10*3/uL (1.2-4.9); MANUAL DIFF FLAG SCAN; Mean Corpuscular HGB Conc 32.8 g/dl (31.0-35.0); Mean Corpuscular Hemoglobin 32.4 pg (27.0-33.0); Mean Corpuscular Volume 98.9 fL (80.0-98.0); NRBC Abs Auto 0.000 X10*3/uL (0.0-0.012); NRBC Pct Auto 0.0 /100WBC (0.0-0.2); Platelet Count 167 X10*3/uL (160-400); Red Blood Count 4.44 X10*6/uL (4.20-5.50); SCAN SMEAR FLAG 1; White Blood Count 12.7 X10*3/uL (4.8-10.8)
[2024-10-14 13:55] LABS: Venous Blood Gas Refer to POC result
[2024-10-14 13:56] LABS: VBG HCO3 22 mmol/L (22-26); VBG O2 % Saturation 94.0 %
[2024-10-14 14:07] LABS: Resp Syncy Virus RNA Qual PCR NEGATIVE (Negative); SARS COV2 PCR INHOUSE NEGATIVE (Negative)
[2024-10-14] MEDS: Albumin Human 25 % 50 ML 100 ML IV (14:11)
[2024-10-14 14:14] LABS: B Type Natriuretic Peptide 1704 pg/mL (<100)
--- NOTE | 2024-10-14 14:50 | PC.NURSE ---
Patient presents to ED LKW [id number] last night. Family found patient non response this am 1100 alert to painful stimuli. EMS placed patient on villanueva 4L 98%. EKG = afib patient on eliquis. CXR = large right pleural effusion. . Patient placed on bipap 96%. LR currently running 200 ml/hr. FAmily at bedside. Blood collect/sent. Plan of care on going
[2024-10-14] MEDS: Furosemide 200 MG in 0.9 % Sodium Chloride 80 ML IVCONT (15:06)
[2024-10-14 15:14] LABS: Reflex Lactate? Lactic Acid Added
--- NOTE | 2024-10-14 15:16 | PC.NURSE ---
LR stopped and patient started on lasix drip 5mg/hr. Patient not tolerating bipap. Bipap removed and patient transitioned to hi dustin 45L 55% O2 sat 95% 16RR
[2024-10-14 16:24] LABS: ~Lactic Acid-LAB USE ONLY 4.4 mmol/L (0.5-2.0)
--- NOTE | 2024-10-14 16:48 | PM.IMHP ---
History of Present Illness Date of Service: 10/14/24 Chief Complaint: ams 88F PMH chronic diastolic chf, pulm htn, chornic afib, htn, presented with sob, ams. Patient is alert oriented x3 at baseline ambulates with walker. On day prior to presentation patient was feeling weak, had hematuria, went to urgent Care was diagnosed with urinary tract infection prescribed antibiotics. Next day patient was obtunded so family called EMS, patient found to be hypoxic in the 60s placed on non-rebreather. In ED noted to be severely hypothermic, hypoxic, chest x-ray with large right pleural effusion Review of Systems Review of Systems: Yes all other systems are reviewed and are negative ON LICENSE OF [facility] Medical History Toe amputee Hyperlipemia Hypertension Tubular adenoma of colon History of cardioversion Diarrhea Chronic diastolic heart failure PAF (paroxysmal atrial fibrillation) Family History Mother No problems noted. Father No problems noted. Surgical History Hx of thoracic aortic aneurysm repair History of lumpectomy of right breast Hx of colonoscopy with polypectomy Hx laparoscopic cholecystectomy History of total left knee replacement Social History Household Members: Children Household Members Other:: daughter Alcohol intake: current Alcohol intake frequency: holidays/special occasions only Alcohol type: wine Patient Tobacco Use Status: Former Tobacco user Years Smoked: 30+ Smoked in Last 30 Days: No Use of substances other than those prescribed or required for medical reasons: No Advance Directives: Yes Advance Directives Information Provided: No Advance Directives on File: No Do you have a plan to hurt others: No Plan Current occupational status: retired Meds Allergies Allergy/AdvReac Type Severity Reaction Status Date / Time cefaclor (From CECLOR) Allergy Unknown UNKNOWN Verified 10/14/24 12:26 ciprofloxacin (CIPROFLOXACIN) Allergy Unknown UNKNOWN Verified 10/14/24 12:26 levofloxacin (From LEVAQUIN) Allergy Unknown UNKNOWN Verified 10/14/24 12:26 sulfamethoxazole (From Allergy Unknown UNKNOWN Verified 10/14/24 12:26 BACTRIM) trimethoprim (From BACTRIM) Allergy Unknown UNKNOWN Verified 10/14/24 12:26 Augmentin Allergy Unknown Unknown Uncoded 10/14/24 12:26 Active Medications: Current Medications Acetaminophen (Acetaminophen 325 Mg Tablet) 650 mg PO Q6H PRN PRN Reason: Pain, Mild 1-3,fever,headache Albuterol/Ipratropium (Albuterol/Iprat 2.5/0.5mg 3 Ml Ampul.Neb) 3 ml INHALE RQ4H WHILE AWAKE PRN PRN Reason: sob Calcium Carbonate (Calcium Carbonate 750 Mg Tab.Chew) 750 mg PO Q4H PRN PRN Reason: Heartburn Ceftriaxone Sodium (Ceftriaxone Sodium 1 Gm Vial) 1 gm IVPUSH Q24H MEI Azithromycin 500 mg/ Sodium (Chloride) 250 mls @ 125 mls/hr IV Q24H MEI Sodium Chloride (Ns) 500 mls @ 999 mls/hr IV .Q31M [facility] Stop: 10/14/24 17:15 Magnesium Hydroxide (Milk Of Magnesia 30 Ml Oral.Susp) 30 ml PO DAILY PRN PRN Reason: Constipation Melatonin (Melatonin 3 Mg Tablet) 6 mg PO BEDTIME PRN PRN Reason: Insomnia Sodium Chloride (0.9 % Sodium Chloride Flush 3 Ml Syringe) 3 ml IVFLUSH QSHIFT [facility] Home Medications ?Medication ?Instructions ?Recorded ?Confirmed ?Last Taken ?Type apixaban 2.5 mg tablet (Eliquis) 2.5 mg PO BID 01/24/20 09/17/24 Unknown History atorvastatin 10 mg tablet 10 mg PO DAILY 01/24/20 09/17/24 Unknown History ergocalciferol (vitamin D2) 1,250 1,250 mcg PO QWEEK 01/24/20 09/17/24 Unknown History mcg (50,000 unit) capsule metoprolol succinate 50 mg 100 mg PO DAILY 01/24/20 09/17/24 Unknown History tablet,extended release 24 hr sertraline 50 mg tablet 50 mg PO DAILY 01/24/20 09/17/24 Unknown History furosemide 20 mg tablet 40 mg PO DAILY 09/17/24 09/17/24 Unknown History potassium chloride 10 mEq 20 meq PO DAILY 09/17/24 09/17/24 Unknown History capsule,extended release zolpidem 10 mg tablet 5 mg PO BEDTIME 09/17/24 09/17/24 Unknown History Physical Exam Vital Signs and Narrative: Vital Signs: Last Vital Signs Temp 94.8 F L 10/14/24 15:40 Pulse 94 10/14/24 15:40 Resp 17 10/14/24 15:40 BP 105/66 10/14/24 15:40 Pulse Ox 95 10/14/24 15:40 O2 Del Method High Flow Nasal C annula 10/14/24 15:40 O2 Flow Rate 45 10/14/24 15:40 Oxygen Flow Rate 3 10/14/24 12:25 BMI result Body Mass Index 25.4 Obtunded, ill-appearing, diminished sounds bilateral, heart irregular Results Labs 10/14/24 13:45 10/14/24 13:05 Labs: Laboratory Results - last 24 hr 10/14/24 10/14/24 10/14/24 13:05 13:06 13:08 MCV MCH MCHC RDW Plt Count MPV Immature Gran % (Auto) Neut % (Auto) Lymph % (Auto) Vance % (Auto) Eos % (Auto) Baso % (Auto) Lymph # (Auto) Vance # (Auto) Eos # (Auto) Baso # (Auto) Abs Immat Gran (auto) Absolute Neuts (auto) Absolute Nucleated RBC Nucleated RBC % (auto) Smear Tech's Comments PT 18.1 H INR 1.6 H VBG pH VBG pCO2 VBG pO2 VBG HCO3 VBG O2 Saturation VBG Base Excess Anion Gap 21 H Estim Creat Clear Calc 17.1 Estimated GFR 24 Random Glucose 122 H Lactic Acid 4.7 H* Lactic Acid F/U @ 2Hr Calcium 8.6 D Magnesium 2.2 Total Bilirubin 1.4 H AST 330 H ALT 228 H Alkaline Phosphatase 193 H B-Natriuretic Peptide Total Protein 7.9 Albumin 4.4 Urine Color Red A Urine Appearance Hazy Urine pH 5.0 Ur Specific Butler 1.015 Urine Protein 300 (3+) H Urine Glucose (UA) Negative Urine Ketones Negative Urine Blood Large (3+) H Urine Nitrite Negative Ur Leukocyte Esterase Moderate (2+) H Urine RBC >20 H Urine WBC 21-50 Ur Squamous Epith Cells 3-5 Urine Bacteria None Seen Hyaline Casts 0-2 Influenza Type A (PCR) NEGATIVE Influenza Type B (PCR) NEGATIVE RSV RNA Qual (PCR) NEGATIVE SARS-CoV-2 RNA (RT-PCR) NEGATIVE 07/20/25 07/20/25 07/20/25 13:45 13:52 16:01 MCV 98.9 H MCH 32.4 MCHC 32.8 RDW 13.2 Plt Count 167 D MPV 9.7 Immature Gran % (Auto) 0.3 Neut % (Auto) 83.5 H Lymph % (Auto) 2.5 L Vance % (Auto) 13.6 H Eos % (Auto) 0.0 Baso % (Auto) 0.1 Lymph # (Auto) 0.3 L Vance # (Auto) 1.7 H Eos # (Auto) 0.0 Baso # (Auto) 0.0 Abs Immat Gran (auto) 0.04 H Absolute Neuts (auto) 10.6 H Absolute Nucleated RBC 0.000 Nucleated RBC % (auto) 0.0 Smear Tech's Comments VERIFIED PT INR VBG pH 7.25 L VBG pCO2 49 VBG pO2 68 VBG HCO3 22 VBG O2 Saturation 94.0 VBG Base Excess -5.3 Anion Gap Estim Creat Clear Calc Estimated GFR Random Glucose Lactic Acid Lactic Acid F/U @ 2Hr 4.4 H* Calcium Magnesium Total Bilirubin AST ALT Alkaline Phosphatase B-Natriuretic Peptide 1704 H Total Protein Albumin Urine Color Urine Appearance Urine pH Ur Specific Butler Urine Protein Urine Glucose (UA) Urine Ketones Urine Blood Urine Nitrite Ur Leukocyte Esterase Urine RBC Urine WBC Ur Squamous Epith Cells Urine Bacteria Hyaline Casts Influenza Type A (PCR) Influenza Type B (PCR) RSV RNA Qual (PCR) SARS-CoV-2 RNA (RT-PCR) Assessment and Plan (1) Chronic diastolic heart failure: Status: Acute Plan 88F PMH chronic diastolic chf, pulm htn, chornic afib, htn, presented with sob, ams Severe sepsis, acute hypoxic respiratory failure, acute metabolic encephalopathy due to pneumonia plus-minus UTI Continue IV ceftriaxone azithromycin, follow up cultures, follow up CT chest Wean O2 Right-sided pleural effusion Hold Eliquis, plan for thoracentesis Chronic diastolic CHF Hypotensive with Lasix infusion, ? Hypovolemic Will give iv fluids chronic afib holding eliquis for thoracentesis htn hyoptensive, hold meds dvt prophyalxis - mechanical while holding eliquis dnr/dni Quality Stroke Does the patient have a stroke diagnosis?: No VTE Prior VTE?: No VTE Risk Level:: Medical - moderate - high VTE Device Contraindication: N/A - Device Ordered VTE Drug Contraindication: Treatment Not Indicated
--- NOTE | 2024-10-14 16:54 | PC.NURSE ---
PAtient BP 84/54. lasix drip stopped and BP reassessed 86/52. Notified MD Mtz received orders to hang 500 ml NaCl. O2 95% 45L 55%
--- NOTE | 2024-10-14 17:35 | PC.NURSE ---
500 ml bag almost complete BP 86/49, map 59. notified provider Bibi, new order for albumin received. Core temp 97.0 removing bear brent.
--- NOTE | 2024-10-14 17:41 | PHA.MEDREC ---
Addendum entered by Citlali Bethea RPh 10/14/24 18:13: [facility] REVIEWED Original Note: Pharmacy Consult ? Medication Reconciliation Pharmacy has completed the medication reconciliation. Spoke with patients family at bedside to confirm, they had a med list from home. 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 She normally takes 40 mg daily. Her potassium increased to 20 mEq daily. She takes a 1/2 tab of zolpidem at bedtime. Patient took one dose of cephalexin yesterday. She is no longer taking Digoxin. Family says patient took all of her medications yesterday.
[2024-10-14] MEDS: Albumin Human 25 % 100 ML IV ×2 (17:43→23:58)
[2024-10-14 18:05] LABS: Reflex Lactate? 2 Y
[2024-10-14 18:51] LABS: ~Lactic Acid-LAB USE ONLY 1.7 mmol/L (0.5-2.0)
--- NOTE | 2024-10-14 19:37 | PC.NURSE ---
Patient to CT. placed on non rebreather 15L 99%. Patient returned and placed back on high flow 45L 55% 96%. BP 98/51
--- NOTE | 2024-10-14 20:39 | PC.NURSE ---
PAtient transferred to hospital bed, SBP 69, applied cuff to other extremity SBP 75, Notified provider. Reassessed SBP 101. Provider wants to continue with current plan of care and to check patient gag reflex. Gag reflex present in patient
--- NOTE | 2024-10-14 23:35 | PC.NURSE ---
assumed care for pt at this time 2300, pt alert to name only, stating simple phrases such as thank you . Pts daughter is bedside who states pt has been in and out of sleep waking up only stating simple phrases. pt on monitor and highflow O2. Pts daughter updated on plan of care. call parrish is within pts reach. plan of care ongoing
[2024-10-15] VITALS (19 sets, daily range): BP systolic 85–100; BP diastolic 35–60; PULSE 91–118; RESP 15–24; TEMP 36.1–36.9; O2SAT 93–97; BMI 26.0
[2024-10-15 04:26] LABS: Venous Blood Gas Refer to POC result
[2024-10-15 04:28] LABS: VBG HCO3 28 mmol/L (22-26); VBG O2 % Saturation 100.0 %
[2024-10-15 04:39] LABS: Hematocrit 39.7 % (37.0-47.0); Hemoglobin 13.0 g/dl (12.0-16.0); Mean Corpuscular HGB Conc 32.7 g/dl (31.0-35.0); Mean Corpuscular Hemoglobin 32.1 pg (27.0-33.0); Mean Corpuscular Volume 98.0 fL (80.0-98.0); NRBC Abs Auto 0.000 X10*3/uL (0.0-0.012); NRBC Pct Auto 0.0 /100WBC (0.0-0.2); Platelet Count 131 X10*3/uL (160-400); Red Blood Count 4.05 X10*6/uL (4.20-5.50); White Blood Count 12.0 X10*3/uL (4.8-10.8)
[2024-10-15 04:42] LABS: INTERNATIONAL NORM RATIO 1.7 (0.9-1.1); Prothrombin Time 19.9 SEC (10.9-12.4)
[2024-10-15 05:00] LABS: Alanine Aminotransferase 559 U/L (0-31); Albumin Level 4.5 g/dL (3.5-5.0); Alkaline Phosphatase 126 U/L (39-117); Anion Gap 21 (12-20); Aspartate Amino Transferase 876 U/L (5-31); Blood Urea Nitrogen 40 mg/dL (9-16); Calcium 8.5 mg/dL (8.4-10.2); Carbon Dioxide 24 mmol/L (22-29); Chloride 92 mmol/L (96-108); Creatinine Clr Calc Pharmacy 15.0; Estimated Glomerular Filt Rate 21; Magnesium 2.1 mg/dL (1.6-2.6); Potassium 4.7 mmol/L (3.3-5.1); Sodium 132 mmol/L (135-145); Total Protein 6.5 g/dL (6.5-8.0)
--- NOTE | 2024-10-15 07:00 | CA_ITS ---
Transthoracic Echocardiogram Patient (Last, First, Middle): Jessica Ordonez R Gender: Female Date of : 1935 Age: 89 Procedure Date: 10/15/2024 Procedure Type: Transthoracic Echocardiogram [place] [facility] [place]: 157.48 cm Weight: 64.41 kg BSA: 1.65 m2 Heart Rate: 102 bpm BP: 92 / 56 mmHg Molding Engineer: Referring MD: Fritz Mtz MD Symptoms: chf Study Quality: Adequate ECG Rhythm: Atrial Fibrillation w RVR Conclusions: - Normal left ventricular size and systolic function. There is mildly increased left ventricular wall thickness. The visually estimated ejection fraction is between 55-60%. - Moderately increased right ventricular cavity size. There is mildly decreased right ventricular systolic function. - Severe biatrial enlargement. - There is moderate tricuspid valve regurgitation. The right ventricular systolic pressure is 66 mmHg. Significantly elevated right atrial pressure. Severe pulmonary hypertension is present. Findings Left Ventricle Normal left ventricular size and systolic function. There is mildly increased left ventricular wall thickness. The visually estimated ejection fraction is between 55-60%. There is no evidence of regional wall motion abnormalities. Diastolic function is indeterminate on the basis of available data. Right Ventricle Moderately increased right ventricular cavity size. There is mildly decreased right ventricular systolic function. Atria Severe biatrial enlargement. Aortic Valve Normal aortic valve structure and function. There is no aortic valve stenosis. There is no aortic valve regurgitation. Mitral Valve The mitral valve appears normal. There is trace mitral valve regurgitation. There is no mitral valve stenosis. Pulmonic Valve The pulmonic valve is likely normal. Tricuspid Valve Normal tricuspid valve structure. There is moderate tricuspid valve regurgitation. The right ventricular systolic pressure is 66 mmHg. Significantly elevated right atrial pressure. Severe pulmonary hypertension is present. Great Vessels All visible segments of the aorta are normal in size. Venous The inferior vena cava is dilated and does not collapse with inspiration. Pericardium/Pleural There is no evidence of pericardial effusion. Prior Study Comparison Changes noted compared to prior study dated: 05/04/2021. Moderate RV dilation, severe PH Measurements 2D Linear Measurements IVSd: 1.12 0.6-0.9/0.6-1.0 cm LVIDd: 3.43 3.9-5.3/4.2-5.9 cm LVIDd Index: 2.08 2.4-3.2/2.2-3.1 cm/m2 LVIDs: 2.39 2.0-3.6 cm LVPWd: 1.15 0.7-1.1 cm LA Diam: 4.30 2.7-3.8/3.0-4.0 cm LAIDs Index: 2.61 1.5-2.3 cm/m2 LV Mass: 150.63 67-162/88-224 g LV Mass Index: 91.29 43-95/49-115 g/m2 LVOT Diam: 2.00 3.0+(-)1.3 cm Mitral Valve MV Pk E: 1.21 MV Decel Time: 104.00 E'Medial: 5.22 E/E' Med: 23.20 PHT: 30.00 MVA PHT: 7.33 Decel Curry: 11.61 Aortic Valve AoV Pk Jorge: 1.27 AoV Mn Jorge: 0.90 AoV VTI: 0.25 AoV Pk Grad: 6.00 Aov Mn Grad: 4.00 LUANN Cont.VTI: 1.29 LVOT LVOT Pk Jorge: 0.57 LVOT Mn Jorge: 0.37 LVOT VTI: 0.10 LVOT Pk Grad: 1.00 LVOT Mn Grad: 1.00 LVOT Diam: 2.00 LVOT Area: 3.14 Diastolic Function MV Pk E: 1.21 E'Medial: 5.22 E/E' Med: 23.20 Right Ventricle TAPSE (mm): 16.10 TVS' Jorge: 9.10 Tricuspid Valve TR Pk Jorge: 3.57 TR Pk Grad: 51.00 RA Press: 15.00 RVSP: 66.00 Great Vessels Aorta Sinus of Valsalva: 3.00 2.0-3.5 cm Ao Asc: 3.80 2.1-3.4 cm Pulmonary Valve PV Pk Jorge: 0.75 Peak PV Grad: 2.00 Updated in Other Vendor System with Status of Final Daniel Beauchamp MD electronically signed on 10/16/2024 10:08:13 PM with status of Final
[2024-10-15 08:46] LABS: Thyroid Stimulating Hormone 2.13 uIU/mL (0.32-4.0)
[2024-10-15] MEDS: 0.9 % Sodium Chloride Flush 3 ML SYRINGE IVFLUSH (09:01)
--- NOTE | 2024-10-15 09:07 | HO.PM.IMPN ---
Subjective Subjective Date of Service: 10/15/24 Review of Systems Review of Systems: Yes Unobtainable due to mental condition Physical Exam Exam: Exam: obtunded, accessory muscles used, diminsihed lung sounds Vital Signs: Vital Signs: Last Vital Signs Temp 98 F 10/15/24 06:00 Pulse 106 H 10/15/24 06:00 Resp 24 H 10/15/24 08:43 BP 92/56 L 10/15/24 06:00 Pulse Ox 94 10/15/24 06:00 O2 Del Method Oxymask 10/15/24 06:00 O2 Flow Rate 6 10/15/24 06:00 Oxygen Flow Rate 3 10/14/24 12:25 BMI result Body Mass Index 26.0 Objective Data Active Medications Acetaminophen (Acetaminophen 325 Mg Tablet) 650 mg PO Q6H PRN PRN Reason: Pain, Mild 1-3,fever,headache Albuterol/Ipratropium (Albuterol/Iprat 2.5/0.5mg 3 Ml Ampul.Neb) 3 ml INHALE RQ4H WHILE AWAKE PRN PRN Reason: Shortness of Breath Calcium Carbonate (Calcium Carbonate 750 Mg Tab.Chew) 750 mg PO Q4H PRN PRN Reason: Heartburn Ceftriaxone Sodium (Ceftriaxone Sodium 1 Gm Vial) 1 gm IVPUSH Q24H [facility] Azithromycin 500 mg/ Sodium (Chloride) 250 mls @ 125 mls/hr IV Q24H [facility] Last Admin: 10/15/24 09:00 Dose: 125 mls/hr Documented By: DES Sodium Chloride (Ns) 1,000 mls @ 50 mls/hr IVCONT .Q20H [facility] Magnesium Hydroxide (Milk Of Magnesia 30 Ml Oral.Susp) 30 ml PO DAILY PRN PRN Reason: Constipation Melatonin (Melatonin 3 Mg Tablet) 6 mg PO BEDTIME PRN PRN Reason: Insomnia Sodium Chloride (0.9 % Sodium Chloride Flush 3 Ml Syringe) 3 ml IVFLUSH QSHIFT [facility] Last Admin: 10/15/24 09:01 Dose: 3 ml Documented By: DES Labs 10/15/24 04:21 10/15/24 04:21 Labs: Laboratory Results - last 24 hr 10/14/24 10/14/24 10/14/24 13:05 13:06 13:08 MCV MCH MCHC RDW Plt Count MPV Immature Gran % (Auto) Neut % (Auto) Lymph % (Auto) Major % (Auto) Eos % (Auto) Baso % (Auto) Lymph # (Auto) Major # (Auto) Eos # (Auto) Baso # (Auto) Abs Immat Gran (auto) Absolute Neuts (auto) Absolute Nucleated RBC Nucleated RBC % (auto) Smear Tech's Comments PT 18.1 H INR 1.6 H VBG pH VBG pCO2 VBG pO2 VBG HCO3 VBG O2 Saturation VBG Base Excess Anion Gap 21 H Estim Creat Clear Calc 17.1 Estimated GFR 24 Random Glucose 122 H Lactic Acid 4.7 H* Lactic Acid F/U @ 2Hr Lactic Acid F/U @ 4Hr Calcium 8.6 D Magnesium 2.2 Total Bilirubin 1.4 H Direct Bilirubin AST 330 H ALT 228 H Alkaline Phosphatase 193 H B-Natriuretic Peptide Total Protein 7.9 Albumin 4.4 TSH Urine Color Red A Urine Appearance Hazy Urine pH 5.0 Ur Specific [place] 1.015 Urine Protein 300 (3+) H Urine Glucose (UA) Negative Urine Ketones Negative Urine Blood Large (3+) H Urine Nitrite Negative Ur Leukocyte Esterase Moderate (2+) H Urine RBC >20 H Urine WBC 21-50 Ur Squamous Epith Cells 3-5 Urine Bacteria None Seen Hyaline Casts 0-2 Influenza Type A (PCR) NEGATIVE Influenza Type B (PCR) NEGATIVE RSV RNA Qual (PCR) NEGATIVE SARS-CoV-2 RNA (RT-PCR) NEGATIVE 10/14/24 10/14/24 10/14/24 13:45 13:52 16:01 MCV 98.9 H MCH 32.4 MCHC 32.8 RDW 13.2 Plt Count 167 D MPV 9.7 Immature Gran % (Auto) 0.3 Neut % (Auto) 83.5 H Lymph % (Auto) 2.5 L Major % (Auto) 13.6 H Eos % (Auto) 0.0 Baso % (Auto) 0.1 Lymph # (Auto) 0.3 L Major # (Auto) 1.7 H Eos # (Auto) 0.0 Baso # (Auto) 0.0 Abs Immat Gran (auto) 0.04 H Absolute Neuts (auto) 10.6 H Absolute Nucleated RBC 0.000 Nucleated RBC % (auto) 0.0 Smear Tech's Comments VERIFIED PT INR VBG pH 7.25 L VBG pCO2 49 VBG pO2 68 VBG HCO3 22 VBG O2 Saturation 94.0 VBG Base Excess -5.3 Anion Gap Estim Creat Clear Calc Estimated GFR Random Glucose Lactic Acid Lactic Acid F/U @ 2Hr 4.4 H* Lactic Acid F/U @ 4Hr Calcium Magnesium Total Bilirubin Direct Bilirubin AST ALT Alkaline Phosphatase B-Natriuretic Peptide 1704 H Total Protein Albumin TSH Urine Color Urine Appearance Urine pH Ur Specific [place] Urine Protein Urine Glucose (UA) Urine Ketones Urine Blood Urine Nitrite Ur Leukocyte Esterase Urine RBC Urine WBC Ur Squamous Epith Cells Urine Bacteria Hyaline Casts Influenza Type A (PCR) Influenza Type B (PCR) RSV RNA Qual (PCR) SARS-CoV-2 RNA (RT-PCR) 10/14/24 10/14/24 10/15/24 18:34 20:44 04:21 MCV 98.0 MCH 32.1 MCHC 32.7 RDW 13.2 Plt Count 131 L MPV 10.2 Immature Gran % (Auto) Neut % (Auto) Lymph % (Auto) Major % (Auto) Eos % (Auto) Baso % (Auto) Lymph # (Auto) Major # (Auto) Eos # (Auto) Baso # (Auto) Abs Immat Gran (auto) Absolute Neuts (auto) Absolute Nucleated RBC 0.000 Nucleated RBC % (auto) 0.0 Smear Tech's Comments PT 19.9 H INR 1.7 H VBG pH VBG pCO2 VBG pO2 VBG HCO3 VBG O2 Saturation VBG Base Excess Anion Gap 21 H Estim Creat Clear Calc 15.0 Estimated GFR 21 Random Glucose 81 Lactic Acid 1.8 Lactic Acid F/U @ 2Hr Lactic Acid F/U @ 4Hr 1.7 Calcium 8.5 Magnesium 2.1 Total Bilirubin 0.7 Direct Bilirubin 0.5 AST 876 H ALT 559 H Alkaline Phosphatase 126 H B-Natriuretic Peptide Total Protein 6.5 Albumin 4.5 TSH 2.13 Urine Color Urine Appearance Urine pH Ur Specific [place] Urine Protein Urine Glucose (UA) Urine Ketones Urine Blood Urine Nitrite Ur Leukocyte Esterase Urine RBC Urine WBC Ur Squamous Epith Cells Urine Bacteria Hyaline Casts Influenza Type A (PCR) Influenza Type B (PCR) RSV RNA Qual (PCR) SARS-CoV-2 RNA (RT-PCR) 10/15/24 04:25 MCV MCH MCHC RDW Plt Count MPV Immature Gran % (Auto) Neut % (Auto) Lymph % (Auto) Major % (Auto) Eos % (Auto) Baso % (Auto) Lymph # (Auto) Major # (Auto) Eos # (Auto) Baso # (Auto) Abs Immat Gran (auto) Absolute Neuts (auto) Absolute Nucleated RBC Nucleated RBC % (auto) Smear Tech's Comments PT INR VBG pH 7.22 L VBG pCO2 69 VBG pO2 105 VBG HCO3 28 H VBG O2 Saturation 100.0 VBG Base Excess -0.8 Anion Gap Estim Creat Clear Calc Estimated GFR Random Glucose Lactic Acid Lactic Acid F/U @ 2Hr Lactic Acid F/U @ 4Hr Calcium Magnesium Total Bilirubin Direct Bilirubin AST ALT Alkaline Phosphatase B-Natriuretic Peptide Total Protein Albumin TSH Urine Color Urine Appearance Urine pH Ur Specific [place] Urine Protein Urine Glucose (UA) Urine Ketones Urine Blood Urine Nitrite Ur Leukocyte Esterase Urine RBC Urine WBC Ur Squamous Epith Cells Urine Bacteria Hyaline Casts Influenza Type A (PCR) Influenza Type B (PCR) RSV RNA Qual (PCR) SARS-CoV-2 RNA (RT-PCR) Microbiology Microbiology Results: Microbiology 10/14/24 Unknown Urine Culture - Final Urine Catheterized - Tabares Catheter No growth. Assessment and Plan (1) Chronic atrial fibrillation: Status: Acute Plan 88F PMH chronic diastolic chf, pulm htn, chornic afib, htn, presented with sob, ams Severe sepsis, acute hypoxic respiratory failure, acute metabolic encephalopathy due to pneumonia plus-minus UTI Continue IV ceftriaxone azithromycin, follow up cultures - urine negative Wean O2 acute hypercapneic resp failure trial of bipap Right-sided pleural effusion Hold Eliquis, plan for thoracentesis Chronic diastolic CHF Hypotensive after Lasix infusion, ? Hypovolemic Will give iv fluids, monitor HERNANDEZ and shock liver due to hypotension gentle hydration, monitor chronic afib holding eliquis for thoracentesis htn hyoptensive, hold meds dvt prophyalxis - mechanical while holding eliquis dnr/dni Quality Stroke Does the patient have a stroke diagnosis?: No VTE Prior VTE?: No VTE Risk Level:: Medical - moderate - high VTE Device Contraindication: N/A - Device Ordered VTE Drug Contraindication: Treatment Not Indicated
--- NOTE | 2024-10-15 09:24 | MHC.CM.PN ---
CM met with Patient and several family members and addressed IMM with them. Patient lives in a house with her Daughter and Son-in-Law and she uses a walker to assist with mobility. Home/resume [facility] is the goal and CM has initiated and will follow for dc planning. PCP is Dr. Laureano and Daughter will transport to home at dc.
[2024-10-15 11:44] LABS: Venous Blood Gas Refer to POC result
[2024-10-15 11:46] LABS: VBG HCO3 27 mmol/L (22-26); VBG O2 % Saturation 96.0 %
--- NOTE | 2024-10-15 12:14 | PC.NURSE ---
AGING DEPARTMENT SUPERVISOR notified RN about pt's low BP, nurse obtained BP manually, which was 96/56. Dr. Mtz was notified about low BP and VBG result. Dr. Mtz ordered to keep the patient on BiPap.
[2024-10-15 16:19] LABS: VBG HCO3 27 mmol/L (22-26); VBG O2 % Saturation 85.0 %
[2024-10-15 16:22] LABS: Venous Blood Gas Refer to POC result
[2024-10-16] VITALS (16 sets, daily range): BP systolic 90–118; BP diastolic 50–71; PULSE 105–121; RESP 16–25; TEMP 36.4–36.7; O2SAT 55–98
--- NOTE | 2024-10-16 04:13 | PC.NURSE ---
0000. Patient reports resting comfortably after receiving Ambien. Pt is easily arousable able to make needs and is oriented x3. Patient is on HF and patient was asked if she would be willing to utilize Bipap secondary to previous VBG results. Patient adamantly said No, she would not like to go on Bipap at this time .
[2024-10-16 06:16] LABS: Venous Blood Gas Refer to POC result
[2024-10-16 06:27] LABS: VBG HCO3 27 mmol/L (22-26); VBG O2 % Saturation 83.0 %
[2024-10-16 06:30] LABS: Hematocrit 38.9 % (37.0-47.0); Hemoglobin 12.6 g/dl (12.0-16.0); Mean Corpuscular HGB Conc 32.4 g/dl (31.0-35.0); Mean Corpuscular Hemoglobin 32.1 pg (27.0-33.0); Mean Corpuscular Volume 99.0 fL (80.0-98.0); NRBC Abs Auto 0.020 X10*3/uL (0.0-0.012); NRBC Pct Auto 0.2 /100WBC (0.0-0.2); Platelet Count 147 X10*3/uL (160-400); Red Blood Count 3.93 X10*6/uL (4.20-5.50); White Blood Count 11.6 X10*3/uL (4.8-10.8)
--- NOTE | 2024-10-16 06:45 | PM.EVENT ---
Event Note Date of Service: 10/16/24 Event Note: Lab reported respiratory acidosis on VBG with pH 7.15 and pCO2 78. Will obtain ABG. Patient is on high-flow, will switch to BiPAP Time Spent With Patient Time: Total time managing care of this patient today ____ minutes.
[2024-10-16 06:53] LABS: Alanine Aminotransferase 386 U/L (0-31); Albumin Level 4.2 g/dL (3.5-5.0); Alkaline Phosphatase 119 U/L (39-117); Anion Gap 19 (12-20); Aspartate Amino Transferase 335 U/L (5-31); Blood Urea Nitrogen 59 mg/dL (9-16); Calcium 8.1 mg/dL (8.4-10.2); Carbon Dioxide 26 mmol/L (22-29); Chloride 93 mmol/L (96-108); Creatinine Clr Calc Pharmacy 11.9; Estimated Glomerular Filt Rate 15; Magnesium 2.2 mg/dL (1.6-2.6); Potassium 5.0 mmol/L (3.3-5.1); Sodium 133 mmol/L (135-145); Total Protein 6.3 g/dL (6.5-8.0)
[2024-10-16 07:08] LABS: ABG HCO3 27 mmol/L (22-26); ABG O2 % Saturation 95.0 %
[2024-10-16] MEDS: 0.9 % Sodium Chloride Flush 3 ML SYRINGE IVFLUSH ×2 (08:27→14:25)
[2024-10-16 08:56] LABS: ABG Refer to POC result
--- NOTE | 2024-10-16 10:10 | W.MHC.ACPN ---
Advanced Care Planning Note Advanced Care Planning Note Discussed with: patient and family member(s) Time spent (in minutes): 18 Narrative: Discussed at bedside with patient and daughter regarding diagnosis of acute hypoxic and hypercapnic respiratory failure, pulmonary hypertension, pleural effusion. Patient was able to communicate that she does not want any noninvasive positive pressure ventilation but she would like to continue with other conservative therapies like thoracentesis and high-flow oxygen. BiPAP discontinued and patient put back on high-flow. Problems Discussed (1) Chronic atrial fibrillation:
--- NOTE | 2024-10-16 10:12 | P.PNIM_ITS ---
Subjective Subjective Date of Service: 10/16/24 Interval History: weak, sob, bothered by bipap Physical Exam 2 Exam: Exam: lethargic, ill appearing, not fluently verbal but able to communicate reduced air movement on right Vital Signs: Vital Signs: Last Vital Signs Temp 97.5 F 10/16/24 07:10 Pulse 116 H 10/16/24 10:09 Resp 18 10/16/24 10:09 BP 95/51 L 10/16/24 10:09 Pulse Ox 98 10/16/24 10:09 O2 Del Method Oxymask 10/16/24 10:09 O2 Flow Rate 8 10/16/24 10:09 FiO2 60 10/16/24 09:50 Oxygen Flow Rate 3 10/14/24 12:25 BMI result Body Mass Index 26.0 Objective Data Active Medications Acetaminophen (Acetaminophen 325 Mg Tablet) 650 mg PO Q6H PRN PRN Reason: Pain, Mild 1-3,fever,headache Albuterol/Ipratropium (Albuterol/Iprat 2.5/0.5mg 3 Ml Ampul.Neb) 3 ml INHALE RQ4H WHILE AWAKE PRN PRN Reason: Shortness of Breath Calcium Carbonate (Calcium Carbonate 750 Mg Tab.Chew) 750 mg PO Q4H PRN PRN Reason: Heartburn Ceftriaxone Sodium (Ceftriaxone Sodium 1 Gm Vial) 1 gm IVPUSH Q24H [facility] Last Admin: 10/15/24 13:35 Dose: 1 gm Documented By: DES Azithromycin 500 mg/ Sodium (Chloride) 250 mls @ 125 mls/hr IV Q24H [facility] Last Admin: 10/16/24 08:25 Dose: 125 mls/hr Documented By: CEE Sodium Chloride (Ns) 1,000 mls @ 50 mls/hr IVCONT .Q20H [facility] Last Admin: 10/16/24 05:49 Dose: 50 mls/hr Documented By: WONG Magnesium Hydroxide (Milk Of Magnesia 30 Ml Oral.Susp) 30 ml PO DAILY PRN PRN Reason: Constipation Melatonin (Melatonin 3 Mg Tablet) 6 mg PO BEDTIME PRN PRN Reason: Insomnia Sodium Chloride (0.9 % Sodium Chloride Flush 3 Ml Syringe) 3 ml IVFLUSH QSHIFT [facility] Last Admin: 10/16/24 08:27 Dose: 3 ml Documented By: CEE Labs 10/16/24 06:06 10/16/24 06:06 Labs: Laboratory Results - last 24 hr 10/15/24 10/15/24 10/16/24 11:41 16:08 06:06 MCV 99.0 H MCH 32.1 MCHC 32.4 RDW 13.3 Plt Count 147 L MPV 10.0 Absolute Nucleated RBC 0.020 H Nucleated RBC % (auto) 0.2 O2 Saturation ABG pH at Pt Temp ABG pCO2 at Pt Temp ABG pO2 at Pt Temp ABG HCO3 ABG Base Excess (Actual) VBG pH 7.22 L 7.20 L* VBG pCO2 65 68 VBG pO2 79 57 VBG HCO3 27 H 27 H VBG O2 Saturation 96.0 85.0 VBG Base Excess -2.1 -2.4 Anion Gap 19 Estim Creat Clear Calc 11.9 Estimated GFR 15 Random Glucose 105 Calcium 8.1 L Magnesium 2.2 Total Bilirubin 0.5 Direct Bilirubin 0.4 AST 335 H ALT 386 H Alkaline Phosphatase 119 H Total Protein 6.3 L Albumin 4.2 10/16/24 10/16/24 06:20 07:04 MCV MCH MCHC RDW Plt Count MPV Absolute Nucleated RBC Nucleated RBC % (auto) O2 Saturation 95.0 ABG pH at Pt Temp 7.14 L* ABG pCO2 at Pt Temp 79 H* ABG pO2 at Pt Temp 75 L ABG HCO3 27 H ABG Base Excess (Actual) -3.2 VBG pH 7.15 L* VBG pCO2 78 VBG pO2 53 VBG HCO3 27 H VBG O2 Saturation 83.0 VBG Base Excess -3.3 Anion Gap Estim Creat Clear Calc Estimated GFR Random Glucose Calcium Magnesium Total Bilirubin Direct Bilirubin AST ALT Alkaline Phosphatase Total Protein Albumin Microbiology Microbiology Results: Microbiology 10/14/24 13:05 Blood Culture - Preliminary Blood - Venous No growth after 24 hours. 10/14/24 13:05 Blood Culture - Preliminary Blood - Venous No growth after 24 hours. 10/14/24 Unknown Urine Culture - Final Urine Catheterized - Tabares Catheter No growth. Assessment and Plan (1) Chronic atrial fibrillation: Status: Acute Plan 88F PMH chronic diastolic chf, pulm htn, chornic afib, htn, presented with sob, ams Severe sepsis, acute hypoxic respiratory failure, acute metabolic encephalopathy due to pneumonia plus-minus UTI Continue IV ceftriaxone azithromycin, follow up cultures - urine negative Wean O2 acute hypercapneic resp failure did not improve on bipap, and patient no longer wanting NIPPV (see ACP note) Right-sided pleural effusion Hold Eliquis, plan for thoracentesis Chronic diastolic CHF Hypotensive after Lasix infusion, ? Hypovolemic Will give iv fluids, monitor HERNANDEZ and shock liver due to hypotension gentle hydration, monitor chronic afib holding eliquis for thoracentesis htn hyoptensive, hold meds dvt prophyalxis - mechanical while holding eliquis dnr/dni Quality Stroke Does the patient have a stroke diagnosis?: No VTE Prior VTE?: No VTE Risk Level:: Medical - moderate - high VTE Device Contraindication: N/A - Device Ordered VTE Drug Contraindication: Treatment Not Indicated
[2024-10-16] MEDS: Lidocaine HCl 1 % MPF 5 ML VIAL SUBCUT (10:16)
[2024-10-16 10:43] LABS: MN% 85.3 %; PMN% 14.7 %; WBC Pleural Fluid 0.675 X10*3/uL
--- NOTE | 2024-10-16 10:55 | MHC.CM.PN ---
CORRECTION! Patient is active with [facility].
[2024-10-16 11:06] LABS: BF Shift QC OK YES; Lymphocytes Pleural Fluid 51 %; Man Diluent Bkgrd OK YES; Monocytes Pleural Fluid 12 %; Neutrophils Pleural Fluid 16 %; Other Cells Plerual Fl 21 %
--- NOTE | 2024-10-16 16:14 | HO.WOUND ---
Wound Consult: Initial 89yr old?female admitted to [facility] on 10/14/24 - See progress notes and H&P for detailed history.? Wound consult placed for Coccyx, right Hip and Bilateral Heels .? Patient's chart reviewed and discussed with direct care team. Goals of care discussion on going with family. Larger family presence throughout day shift. will defer assessment to photo review, chart review and discussion with direct care team. Coccyx and sacrum - intact red pink tissue remains intact and blanchable. Recommend foam dressing to aid in protection and barrier cream to protect from moisture and friction. Bilateral heels and right hip noted for blanchable intact redness - foam dressings in place along with off loading from surface of bed. Skin tears treated with xeroform and foam dressing in place. Recommended at next change to replace with xeroform and gauze dressing to limit adhesive on fragile tissue. ? Recommendations: 1. Turn and Reposition every 2 hours and as needed for patient comfort.? Use pillows or wedges to support off loading positions. 2. Off Load all bony prominences with use of pillows and heel boots if needed.? Apply Preventative foams where needed. ? 3. Monitor for incontinence and moisture control, use barrier creams when needed for prevention and treatment. 4. Provide adequate and supplemental nutrition.? 5. Continue low air loss mattress. 6. When applicable maintain blood glucose levels per Providers order. Sacrum?and Right Hip - Off Load Pressure with Q2 hr turns and use of pillows - Routine cleansing.? Apply skin prep allow to dry.? Cover with foam dressing to aid in off loading and protection from friction. Change every 3 -5 days and PRN. Bilateral Heels? - Elevate heels off of bed surface with pillows.? Float heels off of pillows.? Apply skin prep allow to dry.? Apply heel foam dressings, peel back and assess Q shift and change every 5-7 days and PRN. Bilateral Arm Skin Tears - Cleanse with normal saline, pat dry. ?Apply Xeroform secure with Abd pads, gauze wrap and tape. Change Daily. ?Do not apply tape to patient?s skin.? Avoid Adhesive application to skin - when necessary, apply skin prep prior.? Re-consult wound care Nurse for wound deterioration or wound changes.
[2024-10-17 03:20] VITALS: BP 108/68; PULSE 128; RESP 16; TEMP 36.2; O2SAT 95
[2024-10-17 06:32] LABS: Hematocrit 40.8 % (37.0-47.0); Hemoglobin 13.0 g/dl (12.0-16.0); Mean Corpuscular HGB Conc 31.9 g/dl (31.0-35.0); Mean Corpuscular Hemoglobin 32.5 pg (27.0-33.0); Mean Corpuscular Volume 102.0 fL (80.0-98.0); NRBC Abs Auto 0.030 X10*3/uL (0.0-0.012); NRBC Pct Auto 0.2 /100WBC (0.0-0.2); Platelet Count 150 X10*3/uL (160-400); Red Blood Count 4.00 X10*6/uL (4.20-5.50); White Blood Count 12.7 X10*3/uL (4.8-10.8)
[2024-10-17 06:39] LABS: VBG HCO3 24 mmol/L (22-26); VBG O2 % Saturation 92.0 %
[2024-10-17 06:46] LABS: Venous Blood Gas Refer to POC result
[2024-10-17 07:03] VITALS: BP 107/58; PULSE 126; RESP 16; TEMP 36.3; O2SAT 98
[2024-10-17 07:05] LABS: Alanine Aminotransferase 282 U/L (0-31); Albumin Level 3.9 g/dL (3.5-5.0); Alkaline Phosphatase 113 U/L (39-117); Anion Gap 20 (12-20); Aspartate Amino Transferase 147 U/L (5-31); Blood Urea Nitrogen 74 mg/dL (9-16); Calcium 8.1 mg/dL (8.4-10.2); Carbon Dioxide 20 mmol/L (22-29); Chloride 96 mmol/L (96-108); Creatinine Clr Calc Pharmacy 11.1; Estimated Glomerular Filt Rate 14; Magnesium 2.2 mg/dL (1.6-2.6); Potassium 4.7 mmol/L (3.3-5.1); Sodium 131 mmol/L (135-145); Total Protein 6.3 g/dL (6.5-8.0)
--- NOTE | 2024-10-17 08:16 | P.PNIM_ITS ---
Subjective Subjective Date of Service: 10/17/24 Review of Systems Review of Systems: Yes Unobtainable due to mental condition Physical Exam 2 Exam: Exam: obtuned, ill appearing, accessory muscles, early agonal breathing Vital Signs: Vital Signs: Last Vital Signs Temp 97.3 F 10/17/24 07:03 Pulse 126 H 10/17/24 07:03 Resp 16 10/17/24 07:03 BP 107/58 L 10/17/24 07:03 Pulse Ox 98 10/17/24 07:03 O2 Del Method Nasal Cannula 10/17/24 07:03 O2 Flow Rate 3 10/17/24 07:03 FiO2 60 10/16/24 10:20 Oxygen Flow Rate 3 10/14/24 12:25 BMI result Body Mass Index 26.0 Objective Data Active Medications Acetaminophen (Acetaminophen 325 Mg Tablet) 650 mg PO Q6H PRN PRN Reason: Pain, Mild 1-3,fever,headache Albuterol/Ipratropium (Albuterol/Iprat 2.5/0.5mg 3 Ml Ampul.Neb) 3 ml INHALE RQ4H WHILE AWAKE PRN PRN Reason: Shortness of Breath Magnesium Hydroxide (Milk Of Magnesia 30 Ml Oral.Susp) 30 ml PO DAILY PRN PRN Reason: Constipation Melatonin (Melatonin 3 Mg Tablet) 6 mg PO BEDTIME PRN PRN Reason: Insomnia Morphine Sulfate (Morphine Sulfate 2 Mg/Ml Cartridge) 2 mg IVPUSH Q1H PRN; Protocol PRN Reason: work of breathing Sodium Chloride (0.9 % Sodium Chloride Flush 3 Ml Syringe) 3 ml IVFLUSH QSHIFT [facility] Last Admin: 10/17/24 00:49 Dose: Not Given Documented By: CHRIS Non-Admin Reason: IV Running Zolpidem Tartrate (Zolpidem Tartrate 5 Mg Tablet) 5 mg PO BEDTIME PRN PRN Reason: Insomnia Last Admin: 10/16/24 20:39 Dose: 5 mg Documented By: CHRIS Labs 10/17/24 06:23 10/17/24 06:23 Labs: Laboratory Results - last 24 hr 10/16/24 10/17/24 10/17/24 09:50 06:23 06:31 MCV 102.0 H MCH 32.5 MCHC 31.9 RDW 13.8 Plt Count 150 L MPV 10.0 Absolute Nucleated RBC 0.030 H Nucleated RBC % (auto) 0.2 VBG pH 7.10 L* VBG pCO2 76 VBG pO2 62 VBG HCO3 24 VBG O2 Saturation 92.0 VBG Base Excess -6.9 Anion Gap 20 Estim Creat Clear Calc 11.1 Estimated GFR 14 Random Glucose 113 Calcium 8.1 L Magnesium 2.2 Total Bilirubin 0.4 Direct Bilirubin 0.2 AST 147 H ALT 282 H Alkaline Phosphatase 113 Total Protein 6.3 L Albumin 3.9 Pleural WBC 0.675 Pleural RBC 0.004 Pleural Neutrophils 16 Pleural Lymphocytes 51 Pleural Monocytes 12 Pleural Other Cells 21 Pleural Total Protein 1.9 Pleural LDH 62 Microbiology Microbiology Results: Microbiology 10/14/24 13:05 Blood Culture - Preliminary Blood - Venous No growth after 48 hours. 10/14/24 13:05 Blood Culture - Preliminary Blood - Venous No growth after 48 hours. 10/16/24 09:50 Gram Stain - Final Thoracentesis Fluid Assessment and Plan (1) Chronic atrial fibrillation: Status: Acute Plan 88F PMH chronic diastolic chf, pulm htn, chornic afib, htn, presented with sob, ams Severe sepsis, acute hypoxic respiratory failure, acute metabolic encephalopathy due to pneumonia plus-minus UTI acute hypercapneic resp failure Right-sided pleural effusion Chronic diastolic CHF HERNANDEZ and shock liver chronic afib htn patient continues to decline, d/w family at bedside and will transition to MEDICINE AND HEALTH SERVICE MANAGER MEDICINE AND HEALTH SERVICE MANAGER Quality Stroke Does the patient have a stroke diagnosis?: No VTE Prior VTE?: No VTE Risk Level:: Medical - moderate - high VTE Device Contraindication: N/A - Device Ordered VTE Drug Contraindication: Treatment Not Indicated
[2024-10-17] MEDS: 0.9 % Sodium Chloride Flush 3 ML SYRINGE IVFLUSH ×2 (09:48→13:38)
--- NOTE | 2024-10-17 10:20 | MHC.CM.PN ---
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 Original Note: EMR REVIEWED, PER HOSPITALIST PLAN FOR PT TO BE MADE VICE PRESIDENT DIVERSITY W/NO PLAN FOR PT TO DC, CM WILL CONT TO FOLLOW.
--- NOTE | 2024-10-17 12:36 | MHC.CM.PN ---
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
--- NOTE | 2024-10-17 16:40 | P.EN_ITS ---
Event Note Date of Service: 10/17/24 Event Note: Called to see patient by nurse. Morphine pulse dosing every hour insufficient to keep patient comfortable. Discussed with family. 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 Agreeable to start morphine drip with scopolamine patch and p.r.n. Ativan. Orders entered Time Spent With Patient Time: Total time managing care of this patient today ____ minutes.
--- NOTE | 2024-10-17 17:35 | P.DN_ITS ---
Discharge Sum: Prov Provider Primary care physician: Baltazar Laureano MD Consults: 10/15/24 11:44 Consult to Wound Care Routine Reason for consultation: pt has redness on coccyx, right hip, and heels, and skin tear on let hand Discharge Sum: Diag Contributing Factors (1) Pneumonia: (2) Chronic atrial fibrillation: Discharge Sum: Summary Date and Time Date of admission: 10/14/24 16:13 Date of : 10/17/24 Time of : 17:25 Summary Details: 88F PMH chronic diastolic chf, pulm htn, chornic afib, htn, presented with sob, ams. Patient is alert oriented x3 at baseline ambulates with walker. On day prior to presentation patient was feeling weak, had hematuria, went to urgent Care was diagnosed with urinary tract infection prescribed antibiotics. Next day patient was obtunded so family called EMS, patient found to be hypoxic in the 60s placed on non-rebreather. In ED noted to be severely hypothermic, hypoxic, chest x-ray with large right pleural effusion/pneumonia. Admitted to general medical floor and started on ceftriaxone and azithromycin. Over the next 48 hours patient continued to deteriorate despite therapies. Decision was made by family at this time to make their mother SUPERINTENDENT MAINTENANCE AIRPORTS. Patient 10/17/2024 at 17:25 with family present at bedside Additional Data Attending physician: Krishna Grove DO
--- OUTSIDE RECORDS SUMMARY | 2024-11-02 20:00 | XMS_ITS | Clinical Summary ---
Author Organization Unknown Care Team Providers Care Crime Scene Examiner Name Role Phone LITA ROBERTSON, NANDO Unavailable Unavailable OLIVIA RN, PATRICA Unavailable Unavailab jarad DOMINGO PT, KYUNG Unavailable Unavailable KUMAR WASH DRILLER, CHI Unavailable Unavailable READING OT, GRETCHEN Unavailable Unavailable Payers Payer Name Policy Type Policy Number Effective Date Expira tion Date MEDICARE.NGS.PDGM [id number] Problems Condition Name Condition Details Condition Category Status Onset Date Resolution Date Last Treatment Date Treating Clinician Comments HYP HRT AND CHR KDNY DIS W HRT FAIL AND STG 1-4/UNSP CHR KDNY Active 09-05 00:00: 00 CHRONIC DIASTOLIC (CONGESTIVE) HEART FAILURE Active 09-05 00:00: 00 CHRONIC KIDNEY DISEASE, UNSPECIFIED Active 09-05 00:00: 00 UNSPECIFIED ATRIAL FIBRILLATION Active 09-05 00:00: 00 ATHSCL HEART DISEASE OF [place] CORONARY ARTERY W/O ANG PCTRS Active 09-05 00:00: 00 PULMONARY HYPERTENSION , UNSPECIFIED Active 09-05 00:00: 00 NONRHEUMATIC TRICUSPID (VALVE) INSUFFICIENC Y Active 09-05 00:00: 00 ANXIETY DISORDER, UNSPECIFIED Active 09-05 00:00: 00 MAJOR DEPRESSIVE DISORDER, RECURRENT, UNSPECIFIED Active 09-05 00:00: 00 HYPERLIPIDEM IA, UNSPECIFIED Active 09-05 00:00: 00 HYPOTHYROIDI SM, UNSPECIFIED Active 09-05 00:00: 00 HYPOKALEMIA Active 09-05 00:00: 00 ALCOHOL ABUSE, UNCOMPLICATE D Active 09-05 00:00: 00 INSOMNIA, UNSPECIFIED Active 09-05 00:00: 00 FCI (CURRENT) USE OF ANTICOAGULAN TS Active 09-05 00:00: 00 PRESENCE OF ARTIFICIAL KNEE JOINT, BILATERAL Active 09-05 00:00: 00 PERSONAL HISTORY OF NICOTINE DEPENDENCE Active 09-05 00:00: 00 PERSONAL HISTORY OF MALIGNANT NEOPLASM OF BREAST Active 09-05 00:00: 00 Allergies, Adverse Reactions, Alerts Allergy Name Allergy Type Status Severity Reaction(s) Onset Date Inactive Date Treating Clinician Comments CEFACLOR Propensity to adverse reactions Active 09-06 04:56: 20 LEVAQIUN Propensity to adverse reactions Active 09-06 04:56: 30 MIHMK3R Propensity to adverse reactions Active 09-06 04:57: 25 AUGMENTIN Propensity to adverse reactions Active 09-06 04:57: 34 CIPRO HC Propensity to adverse reactions Active 09-06 04:57: 44 BACTRIM Propensity to adverse reactions Active 09-06 04:58: 22 Medications Ordered Medication Name Filled Medication Name Start Date Stop Date Current Medication? Ordering Clinician Indication Dosage Frequency Signature (SIG) Comments Components acetaminoph en 325 mg tablet 08-27 00:00: 00 09-05 00:00 :00 No [id number] Per instruc tions EVERY 4 HOURS IF NEEDED FOR MILD/MODER ATE PAIN FEVER HEADACHE FOR 10 DAYS Per instructio ns EVERY 4 HOURS IF NEEDED FOR MILD/MODER ATE PAIN FEVER HEADACHE FOR 10 DAYS (route: oral) Med Classific ation: Analgesic , Anti-infl ammatory or Antipyret ic furosemide 40 mg tablet 08-27 00:00: 00 09-05 00:00 :00 No [id number] Per instruc tions 1 TIME EACH DAY Per instructio ns 1 TIME EACH DAY (route: oral) Med Classific ation: Cardiovas cular Therapy Agents amlodipine 5 mg tablet 08-06 00:00: 00 09-05 00:00 :00 No [id number] Per instruc tions EVERY DAY Per instructio ns EVERY DAY (route: oral) Med Classific ation: Cardiovas cular Therapy Agents digoxin 125 mcg (0.125 mg) tablet 08-06 00:00: 00 09-05 00:00 :00 No [id number] Per instruc tions THREE TIMES A WEEK Per instructio ns THREE TIMES A WEEK (route: oral) Med Classific ation: Cardiovas cular Therapy Agents potassium chloride ER 10 mEq capsule,ext ended release 08-06 00:00: 00 09-05 00:00 :00 No [id number] Per instruc tions EVERY DAY Per instructio ns EVERY DAY (route: oral) Med Classific ation: Electroly te Balance-N utritiona l Products sertraline 50 mg tablet 08-06 00:00: 00 09-05 00:00 :00 No [id number] Per instruc tions EVERY DAY Per instructio ns EVERY DAY (route: oral) Med Classific ation: Central Nervous System Agents Eliquis 2.5 mg tablet 07-31 00:00: 00 09-05 00:00 :00 No [id number] Per instruc tions TWICE A DAY Per instructio ns TWICE A DAY (route: oral) Med Classific ation: Hematolog ical Agents zolpidem 10 mg tablet 07-31 00:00: 00 09-05 00:00 :00 No [id number] Per instruc tions EVERYDAY AT BEDTIME Per instructio ns EVERYDAY AT BEDTIME (route: oral) Med Classific ation: Central Nervous System Agents Ambien 5 mg tablet 09-04 00:00: 00 Yes [id number] INSOMNIA 1 tablet BEDTIME 1 tablet BEDTIME (route: oral) Med Classific ation: Central Nervous System Agents atorvastati n 10 mg tablet 09-04 00:00: 00 Yes [id number] HIGH LIPIDS 1 tablet BEDTIME 1 tablet BEDTIME (route: oral) Med Classific ation: Cardiovas cular Therapy Agents [place] Saline 0.65 % nasal spray aerosol 09-04 00:00: 00 Yes [id number] DRY NOSE 1 spray BEDTIME 1 spray BEDTIME (route: nasal) Med Classific ation: Respirato ry Therapy Agents Azo Cranberry 250 mg chewable tablet 09-04 00:00: 00 Yes [id number] UTI PREVENTION 1 tablet DAILY 1 tablet DAILY (route: oral) Med Classific ation: Alternati ve Therapy cetirizine 10 mg tablet 09-04 00:00: 00 Yes [id number] ALLERGIES 1 tablet DAILY 1 tablet DAILY (route: oral) Med Classific ation: Respirato ry Therapy Agents cholecalcif laura (vitamin D3) 50 mcg (2,000 unit) capsule 09-04 00:00: 00 Yes [id number] SUPPLEMENT 1 capsule DAILY 1 capsule DAILY (route: oral) Med Classific ation: Electroly te Balance-N utritiona l Products Eliquis 2.5 mg tablet 09-04 00:00: 00 Yes [id number] IRREGULAR HEART BEAT 1 tablet 2 TIMES DAILY 1 tablet 2 TIMES DAILY (route: oral) Med Classific ation: Hematolog ical Agents furosemide 40 mg tablet 09-04 00:00: 00 Yes [id number] EDEMA 1 tablet DAILY 1 tablet DAILY (route: oral) Med Classific ation: Cardiovas cular Therapy Agents Glucosamine Daily Complex 1,500 mg-400 unit-100 mg tablet 09-04 00:00: 00 Yes [id number] SUPPLEMENT 1 tablet DAILY 1 tablet DAILY (route: oral) Med Classific ation: Alternati ve Therapy isosorbide mononitrate ER 60 mg tablet,exte nded release 24 hr 09-04 00:00: 00 Yes [id number] HIGH BLOOD PRESSURE 1 tablet DAILY 1 tablet DAILY (route: oral) Med Classific ation: Cardiovas cular Therapy Agents metoprolol succinate ER 100 mg tablet,exte nded release 24 hr 09-04 00:00: 00 Yes [id number] IRREGULAR HEART BEAT 1 tablet DAILY 1 tablet DAILY (route: oral) Med Classific ation: Cardiovas cular Therapy Agents Norvasc 5 mg tablet 09-04 00:00: 00 Yes [id number] HIGH BLOOD PRESSURE 1 tablet DAILY 1 tablet DAILY (route: oral) Med Classific ation: Cardiovas cular Therapy Agents potassium chloride ER 10 mEq capsule,ext ended release 09-04 00:00: 00 Yes [id number] SUPPLEMENT 2 capsule DAILY 2 capsule DAILY (route: oral) Med Classific ation: Electroly te Balance-N utritiona l Products Zoloft 50 mg tablet 6- 00:00: 00 Yes [id number] SADNESS 1 tablet DAILY 1 tablet DAILY (route: oral) Med Classific ation: Central Nervous System Agents Vital Signs Vital Name Observation Time Observation Value Commen ts Temperature 2024-10-10 11:41:00.000 97.5 [degF] Temperature 2024-10-09 13:18:00.000 97.8 [degF] Temperature 2024-10-02 15:17:00.000 97.1 [degF] Temperature 2024-09-24 16:23:00.000 98.6 [degF] Temperature 2024-09-24 13:53:00.000 97.7 [degF] Temperature 2024-09-18 14:20:00.000 97.1 [degF] Temperature 2024-09-12 14:11:00.000 97.2 [degF] Temperature 2024-09-11 10:52:00.000 97.7 [degF] Temperature 2024-09-06 12:48:00.000 97.3 [degF] Temperature 2024-09-05 13:25:00.000 97.7 [degF] BMI (%) 2024-09-05 12:59:21.000 22 kg/m2 Height 2024-09-05 12:59:16.000 62 [in_us] Pulse 2024-10-10 11:41:00.000 76 /min Pulse 2024-10-09 13:18:00.000 85 /min Pulse 2024-10-02 15:25:00.000 80 /min Pulse 2024-09-24 16:23:00.000 78 /min Pulse 2024-09-24 13:53:00.000 89 /min Pulse 2024-09-18 14:20:00.000 88 /min Pulse 2024-09-12 14:11:00.000 84 /min Pulse 2024-09-11 10:52:00.000 75 /min Pulse 2024-09-06 12:48:00.000 75 /min Pulse 2024-09-05 13:25:00.000 77 /min O2 Saturation (%) 2024-10-10 11:41:00.000 91 % O2 Saturation (%) 2024-10-09 13:18:00.000 94 % O2 Saturation (%) 2024-10-02 15:17:00.000 94 % O2 Saturation (%) 2024-09-24 13:53:00.000 94 % O2 Saturation (%) 2024-09-18 14:20:00.000 96 % O2 Saturation (%) 2024-09-12 14:11:00.000 95 % O2 Saturation (%) 2024-09-11 10:52:00.000 95 % O2 Saturation (%) 2024-09-06 12:48:00.000 92 % O2 Saturation (%) 2024-09-05 13:25:00.000 94 % Respirations 2024-10-10 11:41:00.000 18 /min Respirations 2024-10-09 13:18:00.000 18 /min Respirations 2024-10-02 15:17:00.000 18 /min Respirations 2024-09-24 16:23:00.000 18 /min Respirations 2024-09-24 13:53:00.000 18 /min Respirations 2024-09-18 14:20:00.000 16 /min Respirations 2024-09-12 14:11:00.000 18 /min Respirations 2024-09-11 10:52:00.000 18 /min Respirations 2024-09-06 12:48:00.000 18 /min Respirations 2024-09-05 13:25:00.000 18 /min Weight (lbs) 2024-10-10 11:41:00.000 133.5 [lb_av] Weight (lbs) 2024-10-09 13:18:00.000 134 [lb_av] Weight (lbs) 2024-10-02 15:17:00.000 131.4 [lb_av] Weight (lbs) 2024-09-24 13:53:00.000 132.2 [lb_av] Weight (lbs) 2024-09-18 14:20:00.000 126 [lb_av] Weight (lbs) 2024-09-12 14:12:00.000 129.8 [lb_av] Weight (lbs) 2024-09-11 10:52:00.000 127.4 [lb_av] Weight (lbs) 2024-09-05 12:59:21.000 123 [lb_av] Systolic Blood Pressure 2024-10-10 11:41:00.000 138 mm [Hg] Systolic Blood Pressure 2024-10-09 13:18:00.000 160 mm [Hg] Systolic Blood Pressure 2024-10-02 15:17:00.000 148 mm [Hg] Systolic Blood Pressure 2024-09-24 16:23:00.000 124 mm [Hg] Systolic Blood Pressure 2024-09-24 13:53:00.000 130 mm [Hg] Systolic Blood Pressure 2024-09-18 14:20:00.000 130 mm [Hg] Systolic Blood Pressure 2024-09-12 14:11:00.000 105 mm [Hg] Systolic Blood Pressure 2024-09-11 10:52:00.000 122 mm [Hg] Systolic Blood Pressure 2024-09-06 12:48:00.000 104 mm [Hg] Systolic Blood Pressure 2024-09-05 13:25:00.000 130 mm [Hg] Diastolic Blood Pressure 2024-10-10 11:41:00.000 78 mm [Hg] Diastolic Blood Pressure 2024-10-09 13:18:00.000 66 mm [Hg] Diastolic Blood Pressure 2024-10-02 15:17:00.000 80 mm [Hg] Diastolic Blood Pressure 2024-09-24 16:23:00.000 68 mm [Hg] Diastolic Blood Pressure 2024-09-24 13:53:00.000 60 mm [Hg] Diastolic Blood Pressure 2024-09-18 14:20:00.000 62 mm [Hg] Diastolic Blood Pressure 2024-09-12 14:11:00.000 70 mm [Hg] Diastolic Blood Pressure 2024-09-11 10:52:00.000 78 mm [Hg] Diastolic Blood Pressure 2024-09-06 12:48:00.000 60 mm [Hg] Diastolic Blood Pressure 2024-09-05 13:25:00.000 60 mm [Hg] Plan of Treatment Planned Activity Planned Date Details Comments Future Scheduled Test RN TO OBSE RVE, ASSESS, EVALUATE, AND DEVELOP AN INDIVIDUALIZED PLAN OF CARE. AGENCY MAY ACCEPT ORDERS FROM CONSULTING PHYSICIANS. RN TO OBSERVE AND ASSESS, METALSMITH HELPER/LIVE TRUCK TECHNICIAN TO OBSERVE FOR RISK FOR FALLS AND INSTRUCT IN FALL PREVENTION, HOME SAFETY, MEDICATION MANAGEMENT, INFECTION PREVENTION, AND NUTRITION MANAGEMENT. RN/METALSMITH HELPER/LIVE TRUCK TECHNICIAN NURSE MAY PERFORM O2 SATURATION LEVEL ON ADMISSION AND PRN FOR RN TO ASSESS/METALSMITH HELPER TO OBSERVE PATIENT, WITH NOTIFICATION TO THE PHYSICIAN IF SATURATION IS 90% IN THE ABSENCE OF MORE SPECIFIC PARAMETERS FROM THE PHYSICIAN. AGENCY MAY PERFORM A RESUMPTION OF CARE VISIT FOLLOWING ANY HOSPITAL ADMISSION. RN/METALSMITH HELPER/LIVE TRUCK TECHNICIAN TO MONITOR CO-MORBID CONDITIONS LISTED ON THE PLAN OF CARE AND ANY NEW CONDITIONS THAT PRESENT THEMSELVES DURING THIS EPISODE TO IDENTIFY CHANGES AND INTERVENE TO MINIMIZE COMPLICATIONS. [code = RN TO OBSERVE, ASSESS, EVALUATE, AND DEVELOP AN INDIVIDUALIZED PLAN OF CARE. AGENCY MAY ACCEPT ORDERS FROM CONSULTING PHYSICIANS. RN TO OBSERVE AND ASSESS, METALSMITH HELPER/LIVE TRUCK TECHNICIAN TO OBSERVE FOR RISK FOR FALLS AND INSTRUCT IN FALL PREVENTION, HOME SAFETY, MEDICATION MANAGEMENT, INFECTION PREVENTION, AND NUTRITION MANAGEMENT. RN/METALSMITH HELPER/LIVE TRUCK TECHNICIAN NURSE MAY PERFORM O2 SATURATION LEVEL ON ADMISSION AND PRN FOR RN TO ASSESS/METALSMITH HELPER TO OBSERVE PATIENT, WITH NOTIFICATION TO THE PHYSICIAN IF SATURATION IS 90% IN THE ABSENCE OF MORE SPECIFIC PARAMETERS FROM THE PHYSICIAN. AGENCY MAY PERFORM A RESUMPTION OF CARE VISIT FOLLOWING ANY HOSPITAL ADMISSION. RN/METALSMITH HELPER/LIVE TRUCK TECHNICIAN TO MONITOR CO-MORBID CONDITIONS LISTED ON THE PLAN OF CARE AND ANY NEW CONDITIONS THAT PRESENT THEMSELVES DURING THIS EPISODE TO IDENTIFY CHANGES AND INTERVENE TO MINIMIZE COMPLICATIONS.] Future Scheduled Test MEDICATION MANAGEMENT; RN/METALSMITH HELPER/LIVE TRUCK TECHNICIAN TO REVIEW MEDICATIONS FOR INTERACTIONS, EFFECTIVENESS OF DRUG THERAPY, AND SIGNS/SYMPTOMS OF ADVERSE REACTIONS. MAY INSTRUCT AND REINFORCE MEDICATION TEACHING RELATED TO THE USE OF MEDICATIONS, DOSAGE, FREQUENCY, PURPOSE, SIDE EFFECTS, AND TO REPORT COMPLICATIONS. [code = MEDICATION MANAGEMENT; RN/METALSMITH HELPER/LIVE TRUCK TECHNICIAN TO REVIEW MEDICATIONS FOR INTERACTIONS, EFFECTIVENESS OF DRUG THERAPY, AND SIGNS/SYMPTOMS OF ADVERSE REACTIONS. MAY INSTRUCT AND REINFORCE MEDICATION TEACHING RELATED TO THE USE OF MEDICATIONS, DOSAGE, FREQUENCY, PURPOSE, SIDE EFFECTS, AND TO REPORT COMPLICATIONS.] Future Scheduled Test RISK FOR H OSPITALIZATION; RN TO ASSESS/TEACH, LIVE TRUCK TECHNICIAN/METALSMITH HELPER TO OBSERVE/TEACH PATIENT/CAREGIVER ON RISK FOR HOSPITALIZATION/EMERGENCY ROOM VISITS, TEACH SIGNS AND SYMPTOMS THAT PUT PATIENT AT RISK, WHEN TO NOTIFY NURSE/PHYSICIAN OF COMPLICATIONS/DECLINE, AND WHEN TO CALL 911. [code = RISK FOR HOSPITALIZATION; RN TO ASSESS/TEACH, LIVE TRUCK TECHNICIAN/METALSMITH HELPER TO OBSERVE/TEACH PATIENT/CAREGIVER ON RISK FOR HOSPITALIZATION/EMERGENCY ROOM VISITS, TEACH SIGNS AND SYMPTOMS THAT PUT PATIENT AT RISK, WHEN TO NOTIFY NURSE/PHYSICIAN OF COMPLICATIONS/DECLINE, AND WHEN TO CALL 911.] Future Scheduled Test CARDIOVASC ULAR SYSTEM; RN TO ASSESS/TEACH, METALSMITH HELPER/LIVE TRUCK TECHNICIAN TO OBSERVE/TEACH RELATED TO ALTERED CARDIOVASCULAR STATUS TO MINIMIZE COMPLICATIONS AND REDUCE HOSPITALIZATION. [code = CARDIOVASCULAR SYSTEM; RN TO ASSESS/TEACH, METALSMITH HELPER/LIVE TRUCK TECHNICIAN TO OBSERVE/TEACH RELATED TO ALTERED CARDIOVASCULAR STATUS TO MINIMIZE COMPLICATIONS AND REDUCE HOSPITALIZATION.] Future Scheduled Test HEART FAIL URE; RN TO ASSESS/TEACH, METALSMITH HELPER/LIVE TRUCK TECHNICIAN TO OBSERVE/TEACH CARDIOPULMONARY SYSTEM TO IDENTIFY SIGNS OF DECOMPENSATION AND INTERVENE TO MINIMIZE THE SEVERITY OF FLUID OVERLOAD. OBSERVE PATIENT ABILITY TO MONITOR AND RECORD DAILY WEIGHTS AND VITAL SIGNS, INCLUDING PULSE AND BLOOD PRESSURE; RECORD PATIENT REPORTED WEIGHT, OR WEIGH PATIENT NEEDED. REPORT INCREASED EDEMA OR WEIGHT GAIN OF >2 LBS IN 1 DAY OR >5 LBS IN 1 WEEK OR 5LBS OR MORE OVER TARGET WEIGHT. MAY MEASURE ABDOMINAL GIRTH IF UNABLE TO WEIGH. [code = HEART FAILURE; RN TO ASSESS/TEACH, METALSMITH HELPER/LIVE TRUCK TECHNICIAN TO OBSERVE/TEACH CARDIOPULMONARY SYSTEM TO IDENTIFY SIGNS OF DECOMPENSATION AND INTERVENE TO MINIMIZE THE SEVERITY OF FLUID OVERLOAD. OBSERVE PATIENT ABILITY TO MONITOR AND RECORD DAILY WEIGHTS AND VITAL SIGNS, INCLUDING PULSE AND BLOOD PRESSURE; RECORD PATIENT REPORTED WEIGHT, OR WEIGH PATIENT NEEDED. REPORT INCREASED EDEMA OR WEIGHT GAIN OF >2 LBS IN 1 DAY OR >5 LBS IN 1 WEEK OR 5LBS OR MORE OVER TARGET WEIGHT. MAY MEASURE ABDOMINAL GIRTH IF UNABLE TO WEIGH. ] Future Scheduled Test ARRHYTHMIA MANAGEMENT; RN TO ASSESS AND TEACH, METALSMITH HELPER/LIVE TRUCK TECHNICIAN TO OBSERVE AND TEACH WARNING SIGNS AND SYMPTOMS TO AVOID HOSPITALIZATION. [code = ARRHYTHMIA MANAGEMENT; RN TO ASSESS AND TEACH, METALSMITH HELPER/LIVE TRUCK TECHNICIAN TO OBSERVE AND TEACH WARNING SIGNS AND SYMPTOMS TO AVOID HOSPITALIZATION.] Future Scheduled Test SKIN INTEG RITY RN TO ASSESS AND TEACH, METALSMITH HELPER/LIVE TRUCK TECHNICIAN TO OBSERVE AND TEACH INTEGUMENTARY STATUS TO IDENTIFY CHANGES AND INTERVENE TO MINIMIZE COMPLICATIONS. PROVIDE SKILLED TEACHING OF GENERAL WOUND AND SKIN CARE AND PREVENTION RELATED TO ACTUAL ALTERED SKIN INTEGRITY [code = SKIN INTEGRITY RN TO ASSESS AND TEACH, METALSMITH HELPER/LIVE TRUCK TECHNICIAN TO OBSERVE AND TEACH INTEGUMENTARY STATUS TO IDENTIFY CHANGES AND INTERVENE TO MINIMIZE COMPLICATIONS. PROVIDE SKILLED TEACHING OF GENERAL WOUND AND SKIN CARE AND PREVENTION RELATED TO ACTUAL ALTERED SKIN INTEGRITY ] Future Scheduled Test PAIN MANAG EMENT; RN TO ASSESS AND TEACH, LIVE TRUCK TECHNICIAN/METALSMITH HELPER TO OBSERVE AND TEACH AND PROVIDE EDUCATION ON PAIN MANAGEMENT TECHNIQUES. [code = PAIN MANAGEMENT; RN TO ASSESS AND TEACH, LIVE TRUCK TECHNICIAN/METALSMITH HELPER TO OBSERVE AND TEACH AND PROVIDE EDUCATION ON PAIN MANAGEMENT TECHNIQUES.] Future Scheduled Test FALL REDUC TION MANAGEMENT; RN TO ASSESS AND OBSERVE, METALSMITH HELPER/LIVE TRUCK TECHNICIAN TO OBSERVE FALL RISK FACTORS AND EDUCATE PATIENT/CAREGIVER ON STRATEGIES TO MINIMIZE THE RISK OF FALLING. [code = FALL REDUCTION MANAGEMENT; RN TO ASSESS AND OBSERVE, METALSMITH HELPER/LIVE TRUCK TECHNICIAN TO OBSERVE FALL RISK FACTORS AND EDUCATE PATIENT/CAREGIVER ON STRATEGIES TO MINIMIZE THE RISK OF FALLING.] Future Scheduled Test OCCUPATION AL THERAPY EVALUATION PERFORMED. NO ADDITIONAL VISITS REQUIRED. PROVIDED SKILLED INTERVENTION INCLUDING EDUCATION ON PURSED LIP BREATHING TECHNIQUES IN ORDER TO MANAGE SOB. [code = OCCUPATIONAL THERAPY EVALUATION PERFORMED. NO ADDITIONAL VISITS REQUIRED. PROVIDED SKILLED INTERVENTION INCLUDING EDUCATION ON PURSED LIP BREATHING TECHNIQUES IN ORDER TO MANAGE SOB. ] Goal Patient Goal - GET STRONGER Goal Provider Goal - A PLAN OF CARE WILL BE ESTABLISHED THAT MEETS THE PATIENTS NEEDS. PATIENT WILL DEMONSTRATE OXYGEN SATURATION WITHIN NORMAL LIMITS OR PATIENTS OPTIMAL LEVEL ESTABLISHED BY THE PHYSICIAN THROUGHOUT CARE. CHANGES TO CO-MORBID CONDITIONS AND ANY NEW CONDITIONS WILL BE IDENTIFIED AND REPORTED TO THE PHYSICIAN. Goal Provider Goal - PATIENT/CAREGIVER TO VERBALIZE, AND CONSISTENTLY DEMONSTRATE EFFECTIVE, SAFE MANAGEMENT OF MEDICATION INCLUDING KNOWLEDGE OF EFFECTIVENESS, POTENTIAL SIDE EFFECTS AND DRUG REACTIONS AND WHEN TO CONTACT THE APPROPRIATE CARE PROVIDER. PATIENT/CAREGIVER WILL BE ABLE TO VERBALIZE UNDERSTANDING OF MEDICATION REGIMEN AND ACCURATELY TAKE MEDICATIONS PRESCRIBED WITHOUT ADVERSE EFFECTS BY EOE Goal Provider Goal - PATIENT/CAREGIVER WILL VERBALIZE UNDERSTANDING OF SIGNS AND SYMPTOMS THAT PUT THE PATIENT AT RISK FOR HOSPITALIZATION /EMERGENCY ROOM VISITS, WHEN TO NOTIFY NURSE/PHYSICIAN OF COMPLICATIONS/DECLINE AND WHEN TO CALL 911. Goal Provider Goal - PATIENT / CAREGIVER WILL VERBALIZE/DEMONSTRATE UNDERSTANDING OF MEASURES TO MANAGE ALTERED CARDIOVASCULAR STATUS BY EOE Goal Provider Goal - PATIENT / CAREGIVER WILL VERBALIZE/DEMONSTRATE AN ABILITY TO ADHERE TO SELF-MANAGEMENT OF HF TO MINIMIZE COMPLICATIONS AND AVOID HOSPITALIZATION BY END OF EPISODE. Goal Provider Goal - PATIENT / CAREGIVER WILL VERBALIZE/DEMONSTRATE AN ABILITY TO ADHERE TO SELF-MANAGEMENT OF HEART ARRHYTHMIA TO MINIMIZE COMPLICATIONS AND AVOID HOSPITALIZATION BY END OF EPISODE. Goal Provider Goal - CHANGES IN SKIN INTEGRITY STATUS WILL BE IDENTIFIED AND REPORTED TO THE PHYSICIAN FOR PROMPT INTERVENTION. PATIENT / CAREGIVER WILL VERBALIZE/DEMONSTRATE ADEQUATE KNOWLEDGE OF INTEGUMENTARY STATUS AND APPROPRIATE MEASURES TO PROMOTE SKIN INTEGRITY AND PREVENT INJURY BY EOE Goal Provider Goal - PATIENT / CAREGIVER WILL VERBALIZE / DEMONSTRATE UNDERSTANDING OF PAIN CONTROL MEASURES BY EOE Goal Provider Goal - PATIENT/CAREGIVER WILL VERBALIZE/DEMONSTRATE UNDERSTANDING OF FALL RISK FACTORS AND IMPLEMENT STRATEGIES TO MINIMIZE FALL RISK. PATIENT/CAREGIVER WILL VERBALIZE/DEMONSTRATE AN ABILITY TO ADHERE TO FALL REDUCTION SELF-MANAGEMENT AND LIFE-STYLE CHANGES BY EOE Goal Provider Goal - PATIENT / CAREGIVER WITHIN 1 VISIT WILL BE ABLE TO VERBALIZE / DEMONSTRATE UNDERSTANDING OF PURSED LIP BREATHING TECHNIQUE TO MANAGE SHORTNESS OF BREATH NEEDED. Encounters Start Date/Time End Date/Time Encounter Type Admission Type Attending [facility] Care Department Encounter ID Discharge Date Discharge Status Discharge Condition Discharge Reason Percent Goals Met 2024-09-05 00:00:00 2024-11-03 00:00:00 Outpatient NEW ADMISSION PATRICA BAKER [facility] [id number]
== END 2024-10-17 17:25 | disposition expired | DRG 871 ==
LOC: HO.ED 16:11 → HO.EDOVER 16:35 → HO.IMC 10-15 04:18
PROVIDERS: Hospitalist; Physician Assistant Medical; Radiology Diagnostic Radiology; Student in an Organized Health Care Education/Training Program; Admitting Provider Internal Medicine; Emergency Provider Emergency Medicine; PCP Internal Medicine; Visit Provider Hospitalist
PROC: 0W993ZZ Drainage of Right Pleural Cavity, Percutaneous Approach (ICD-10-PCS; principal; 2024-10-16 09:30)
DX: A41.9 Sepsis, unspecified organism (principal); J18.9 Pneumonia, unspecified organism; J96.01 Acute respiratory failure with hypoxia; J96.02 Acute respiratory failure with hypercapnia; K72.00 Acute and subacute hepatic failure without coma; I50.32 Chronic diastolic (congestive) heart failure; J91.8 Pleural effusion in other conditions classified elsewhere; I48.20 Chronic atrial fibrillation, unspecified; N17.9 Acute kidney failure, unspecified; N39.0 Urinary tract infection, site not specified; Z51.5 Encounter for palliative care; Z66 Do not resuscitate; R65.20 Severe sepsis without septic shock; I27.20 Pulmonary hypertension, unspecified; Z20.822 Contact with and (suspected) exposure to COVID-19; Z87.891 Personal history of nicotine dependence; Z79.01 Long term (current) use of anticoagulants; Z79.899 Other long term (current) drug therapy
CPT/HCPCS: 32555; 36415; 36600; 71045; 71250; 80048; 80053; 80076; 81001; 82803; 83605; 83615; 83735; 83880; 84157; 84443; 84484; 85025; 85027; 85610; 87040; 87070; 87073; 87086; 87205; 87637; 89051; 93005; 93306; 94660; 99285; J0456; J0696; J1938; J2003; J2270; J7120; P9047; Q9957

== ENCOUNTER → 2024-10-14 12:33 | Outpatient (BNV) | payer MEDICARE, SELFPAY | PROVIDERS: Admitting Provider Internal Medicine; Emergency Provider Emergency Medicine; PCP Internal Medicine; Visit Provider Internal Medicine Cardiovascular Disease | DX: I48.91 Unspecified atrial fibrillation (principal) | CPT/HCPCS: 93010 ==

== ENCOUNTER → 2024-10-14 12:35 | Outpatient (BNV) | payer MEDICARE, SELFPAY | PROVIDERS: PCP Internal Medicine; Visit Provider Radiology Diagnostic Radiology | DX: J98.11 Atelectasis (principal); J90 Pleural effusion, not elsewhere classified | CPT/HCPCS: 71045; 71250 ==

== ENCOUNTER 2024-10-14 16:13 | Outpatient (BNV) | payer MEDICARE, SELFPAY | END 2024-10-16 10:15 | PROVIDERS: Admitting Provider Internal Medicine; Emergency Provider Emergency Medicine; PCP Internal Medicine; Visit Provider Radiology Diagnostic Radiology | DX: J90 Pleural effusion, not elsewhere classified (principal) | CPT/HCPCS: 32555 ==

== ENCOUNTER 2024-10-14 16:13 | Outpatient (BNV) | payer MEDICARE, SELFPAY | END 2024-10-15 07:00 | PROVIDERS: Admitting Provider Internal Medicine; Emergency Provider Emergency Medicine; PCP Internal Medicine; Visit Provider Internal Medicine Cardiovascular Disease | DX: I27.20 Pulmonary hypertension, unspecified (principal); I51.7 Cardiomegaly; I36.1 Nonrheumatic tricuspid (valve) insufficiency | CPT/HCPCS: 93306 ==

== ENCOUNTER → 2024-10-14 16:13 | Outpatient (BNV) | payer MEDICARE, SELFPAY | PROVIDERS: Admitting Provider Internal Medicine; Emergency Provider Emergency Medicine; PCP Internal Medicine; Visit Provider Internal Medicine | DX: I48.20 Chronic atrial fibrillation, unspecified (principal) | CPT/HCPCS: 99223; 99233; 99239; 99497; 99499 ==